=== PATIENT | female | born 1965 | race Caucasian/White ===

== ENCOUNTER 2016-12-26 01:37 | Emergency (ER) | payer BC ==
[~2016-12-26] VITALS: Ht 167.6 cm; Wt 140.6 kg
[~2016-12-26 01:37] MED LIST: ALBU1AER9 INH; AMPH1TAB58 PO; AMPH5CAP PO; CIPR-255 PO; CLR10 PO; FLM4 PO; FLUO20CA35 PO; FLUT0.15 NAE; HYDR-5688 PO; LOSA100T2 PO; METF1000 PO; POTATAB PO
[2016-12-26 01:41] VITALS: Ht 167.6 cm; Wt 140.6 kg
[2016-12-26] MEDS ORDERED: ONDANSETRON INJ 2 MG/ML 2 ML VIAL IV STA (02:20)
[2016-12-26] MEDS ORDERED: SODIUM CHLORIDE 0.9% 1000ML 1,000 ML IV STA (02:20)
[2016-12-26 02:34] LABS: BASO % 0.1 %; BASO ABS # 0.01 K/uL (0-0.2); COMPLETE YES; EOS % 2.2 %; HEMATOCRIT 42.5 % (37-47); IG% 0.1 %; LYMPH % 34.8 %; LYMPH ABS # 2.39 K/uL (1.2-3.4); MEAN CELL VOLUME 90.2 fL (80-100); MEAN CORPUSCULAR HEMOGLOBIN 29.1 pg (25-34); MEAN CORPUSCULAR HGB CONC 32.2 g/dl (32-36); MEAN PLATELET VOLUME 9.7 fL (7.4-10.4); MONO % 8.6 %; NEUT % 54.2 %; PLATELET COUNT 298 K/uL (130-400); RED BLOOD COUNT 4.71 M/uL (4.2-5.4); WHITE BLOOD COUNT 6.87 K/uL (4.8-10.8)
[2016-12-26 02:46] LABS: URINE APPEARANCE CLEAR (CLEAR); URINE BILIRUBIN NEG (NEG); URINE COLOR ORANGE; URINE NITRITE NEG (NEG); URINE SPECIFIC GRAVITY 1.019 (1.000-1.030); UROBILINOGEN NEG (NEG); ZZUR CULT IF INDIC CLEAN CATCH NO
[2016-12-26 02:53] LABS: ALT/SGPT 46 U/L (12-78); AST/SGOT 18 U/L (15-37); BLOOD UREA NITROGEN 19 mg/dl (7-18); BUN/CREATININE RATIO 21.6 (10-20); CALCIUM 9.5 mg/dl (8.5-10.1); CARBON DIOXIDE 30 mmol/L (21-32); CHLORIDE 103 mmol/L (98-107); CREATININE 0.88 mg/dl (0.60-1.20); GLUCOSE 97 mg/dl (70-99); POTASSIUM 3.9 mmol/L (3.5-5.1); SODIUM 137 mmol/L (136-145)
[2016-12-26 02:55] LABS: MANUAL MICROSCOPIC REQUIRED? NO; REVIEW REQ? NO
[2016-12-26 02:56] LABS: ALKALINE PHOSPHATASE 113 U/L (45-117)
[2016-12-26] MEDS ORDERED: LISD50CA4 PO (04:02)
[2016-12-26] MEDS ORDERED: VNTHFA/IN INH (04:02)
[2016-12-26] MEDS ORDERED: POTASOL PO (04:02)
[2016-12-26] MEDS ORDERED: HYZ/50125 PO (04:03)
[2016-12-26] MEDS ORDERED: ATOR10TA88 PO (04:04)
[2016-12-26] MEDS ORDERED: IBUP-1050 PO (04:05)
[2016-12-26] MEDS ORDERED: SYMIN160 INH (04:05)
[2016-12-26] MEDS ORDERED: IBUPROFEN 800 MG TAB PO STA (06:13)
[2016-12-26] MEDS ORDERED: OXYC-57 PO (06:20)
[2016-12-26] MEDS ORDERED: ONDA4TAB10 SL (06:22)
[2016-12-26] MEDS ORDERED: TAMS0.4C38 PO (06:22)
--- NOTE | 2016-12-26 06:23 | EMERGENCY ROOM VISIT NOTE ---
History First contact with patient: 02:12 Chief Complaint: KIDNEY STONE Stated Complaint: KIDNEY STONE History of Present Illness The patient is a 51 year old female who presents to the Emergency Room with complaints of left flank pain which started approximately 5 hours ago. The patient reports pain and left-sided upper back with radiation into the abdomen. She has noticed blood in the urine. She has a history of kidney stones and states this feels similar. She reports associated nausea, but no vomiting. She has seen [facility] urology in the past. She states she has typically needed lithotripsy to help pass her kidney stones. She rates her overall discomfort a 7/10. She denies any dysuria, urinary frequency, fevers/chills, chest pain, shortness of breath or changes in bowel movements. Review of Systems A complete 10 point review of systems was reviewed with the patient with pertinent positives and negatives as per history of present illness. All else were negative. Past Medical/Surgical History Medical Problems: (1) Cystinuria Social History Smoking Status: Never Smoker Alcohol Use: none Drug Use: none Marital Status: Housing Status: lives with family Occupation Status: employed Current/Historical Medications Scheduled Atorvastatin (Lipitor), 10 MG PO DAILY Budesonide/Formoterol Fumarate (Symbicort 160/4.5 Inhaler ), 2 PUFFS INH BID Fluoxetine (Prozac), 40 MG PO HS Fluticasone Propionate (Nasal) (Flonase Allergy Relief), 2 SPRAY FRANK QAM Hctz/Losartan (Hyzaar 12.5MG/50MG), 1 TAB PO HS Lisdexamfetamine Dimesylate (Vyvanse), 50 MG PO DAILY Loratadine (Claritin), 10 MG PO DAILY Ondasetron Odt (Zofran Odt), 4 MG SL Q6H Potassium Citrate-Citric Acid (Potassium Citrate/Citric), 5 ML PO TID Tamsulosin Hcl (Flomax), 0.4 MG PO DAILY Scheduled PRN Albuterol Hfa (Ventolin Hfa), 2 PUFFS INH Q6H PRN for SOB/Wheezing Ibuprofen (Advil), 400 MG PO Q4 PRN for Pain Oxycodone/Acetaminophen 5MG/325MG (Percocet 5MG/325MG), 1-2 TABS PO Q4H PRN for Pain Physical Exam Vital Signs Date Time Temp Pulse Resp B/P (MAP) Pulse Ox O2 Delivery O2 Flow Rate FiO2 12/26/16 06:37 36.4 64 16 133/67 96 12/26/16 06:22 64 16 133/67 96 Room Air 12/26/16 05:34 68 16 142/74 97 Room Air 12/26/16 03:26 76 16 125/58 97 Room Air 12/26/16 01:41 36.4 69 16 158/81 96 Room Air Physical Exam VITALS: Vitals are noted on the nurse's note and reviewed by myself. Vital signs stable. GENERAL: This is a 51-year-old female, in no acute distress, nondiaphoretic, well-developed well-nourished. HEART: Regular rate and rhythm without murmurs gallops or rubs. LUNGS: Clear to auscultation bilaterally without wheezes, rales or rhonchi. ABDOMEN: Positive bowel sounds x 4. Soft, mild tenderness in the left mid to lower abdomen. No guarding or rebound tenderness. MUSCULOSKELETAL: Left CVA tenderness. NEURO: Patient was alert and oriented to person place and time. Medical Decision & Procedures ER Provider Diagnostic Interpretation: US RENAL: Limited exam secondary to body habitus. No hydronephrosis or shadowing stones. No gross masses. Bladder is grossly normal with demonstration of bilateral ureteral jets. CT ABDOMEN & PELVIS: Bilateral adrenal adenomas, fat-containing. 6 mm nonobstructing calculus at the left UPJ with mild to moderate left hydronephrosis. No appendicitis, colitis, diverticulitis, bowel obstruction, free air or free fluid. No other acute disease. 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 No suspicious features. Radiologist: Bobo Byrd MD Laboratory Results 12/26/16 01:58 Red Blood Count 4.71, Mean Corpuscular Volume 90.2, Mean Corpuscular Hemoglobin 29.1, Mean Corpuscular Hemoglobin Concent 32.2, Mean Platelet Volume 9.7, Neutrophils (%) (Auto) 54.2, Lymphocytes (%) (Auto) 34.8, Monocytes (%) (Auto) 8.6, Eosinophils (%) (Auto) 2.2, Basophils (%) (Auto) 0.1, Neutrophils # (Auto) 3.72, Lymphocytes # (Auto) 2.39, Monocytes # (Auto) 0.59, Eosinophils # (Auto) 0.15, Basophils # (Auto) 0.01 12/26/16 01:58 Test 12/26/16 01:58 White Blood Count 6.87 K/uL (4.8-10.8) Red Blood Count 4.71 M/uL (4.2-5.4) Hemoglobin 13.7 g/dL (12.0-16.0) Hematocrit 42.5 % (37-47) Mean Corpuscular Volume 90.2 fL (80-100) Mean Corpuscular Hemoglobin 29.1 pg (25-34) Mean Corpuscular Hemoglobin Concent 32.2 g/dl (32-36) Platelet Count 298 K/uL (130-400) Mean Platelet Volume 9.7 fL (7.4-10.4) Neutrophils (%) (Auto) 54.2 % Lymphocytes (%) (Auto) 34.8 % Monocytes (%) (Auto) 8.6 % Eosinophils (%) (Auto) 2.2 % Basophils (%) (Auto) 0.1 % Neutrophils # (Auto) 3.72 K/uL (1.4-6.5) Lymphocytes # (Auto) 2.39 K/uL (1.2-3.4) Monocytes # (Auto) 0.59 K/uL (0.11-0.59) Eosinophils # (Auto) 0.15 K/uL (0-0.5) Basophils # (Auto) 0.01 K/uL (0-0.2) RDW Standard Deviation 47.1 fL (36.4-46.3) RDW Coefficient of Variation 14.1 % (11.5-14.5) Immature Granulocyte % (Auto) 0.1 % Immature Granulocyte # (Auto) 0.01 K/uL (0.00-0.02) Urine Color ORANGE Urine Appearance CLEAR (CLEAR) Urine pH 7.0 (4.5-7.5) Urine Specific [place] 1.019 (1.000-1.030) Urine Protein TRACE (NEG) Urine Glucose (UA) NEG (NEG) Urine Ketones NEG (NEG) Urine Occult Blood 3+ (NEG) Urine Nitrite NEG (NEG) Urine Bilirubin NEG (NEG) Urine Urobilinogen NEG (NEG) Urine Leukocyte Esterase TRACE (NEG) Urine WBC (Auto) 1-5 /hpf (0-5) Urine RBC (Auto) >30 /hpf (0-4) Urine Hyaline Casts (Auto) 0 /lpf (0-5) Urine Epithelial Cells (Auto) 10-20 /lpf (0-5) Urine Bacteria (Auto) NEG (NEG) Anion Gap 4.0 mmol/L (3-11) Est Creatinine Clear Calc Drug Dose 108.4 ml/min Estimated GFR () 87.6 Estimated GFR (Non- 75.5 BUN/Creatinine Ratio 21.6 (10-20) Calcium Level 9.5 mg/dl (8.5-10.1) Total Bilirubin 0.3 mg/dl (0.2-1) Direct Bilirubin < 0.1 mg/dl (0-0.2) Aspartate Amino Transf (AST/SGOT) 18 U/L (15-37) Alanine Aminotransferase (ALT/SGPT) 46 U/L (12-78) Alkaline Phosphatase 113 U/L (45-117) Total Protein 7.2 gm/dl (6.4-8.2) Albumin 3.6 gm/dl (3.4-5.0) Medications Administered Medications (Trade) Dose Ordered Sig/Susu Route Start Time Stop Time Status Last Admin Dose Admin Sodium Chloride 1,000 ml @ 999 mls/hr Q1H1M STAT IV 12/26/16 02:20 12/26/16 03:20 DC 12/26/16 02:32 999 MLS/HR Ondansetron HCl (Zofran Inj) 4 mg NOW STAT IV 12/26/16 02:20 12/26/16 02:22 DC 12/26/16 02:30 4 MG Ibuprofen (Motrin Tab) 800 mg NOW STAT PO 12/26/16 06:13 12/26/16 06:14 DC 12/26/16 06:24 800 MG ED Course The patient was evaluated as above. Labs were drawn and IV access was obtained. Patient was medicated with 4 mg Zofran and 1 L normal saline solution. Renal ultrasound was performed and read by statrad as above. CT scan was performed and read by statrad as above. Patient was reevaluated and findings were discussed. She was given ibuprofen for pain. Discharge instructions were reviewed with the patient. The patient verbalized understanding of my assessment and treatment plan and was discharged home in good condition. Medical Decision Differential diagnosis includes kidney stone, pyelonephritis, musculoskeletal pain, among others. The patient is a 51-year-old female with past medical history of multiple kidney stones who presents today complaining of left flank pain. Labs revealed no leukocytosis, anemia or concerning electrolyte abnormalities. Urinalysis did show 3+ blood. Ultrasound was initially performed but did not show any hydronephrosis or obstructing stone. I offered the patient CT versus treating her for a presumed kidney stone and she prefers to have a CT scan at this time, as she believes that urology will likely order one anyway. CT was performed. This was read by stat rad to show a nonobstructing UPJ stone, however on my evaluation of the CT the stone appears to be obstructing. The patient was offered admission for pain control versus discharge home for outpatient follow- up and prefers to be discharged. The patient will be treated with pain medication and follow-up with her urologist. She was encouraged to return here if she has worsening or new/concerning symptoms. Based on the patient's presentation and work up, I feel the patient is stable for outpatient treatment. The patient was educated to return to the emergency department for any worsening of their current condition or new/concerning symptoms. She will follow up with her urologist. [facility] Drug Monitoring Program Search Results: patient reviewed within database Medication Reconcilliation Current Medication List: was personally reviewed by me Blood Pressure Screening Patient's blood pressure: Elevated blood pressure Blood pressure disposition: Elevated BP felt to be situational Impression Primary Impression: Renal colic on left side Departure Information Dispostion Home / Self-Care Condition GOOD Prescriptions Tamsulosin Hcl (FLOMAX) 0.4 Mg Cap 0.4 MG PO DAILY for 7 Days, #7 CAP Prov: Stella Tellez PA-C 12/26/16 Ondasetron Odt (ZOFRAN ODT) 4 Mg Tab 4 MG SL Q6H for Nausea, #15 TAB Prov: Stella Tellez PA-C 12/26/16 Oxycodone/Acetaminophen 5MG/325MG (PERCOCET 5MG/325MG) Tab 1-2 TABS PO Q4H Y for Pain, #20 TAB For Initial Treatment Prov: Stella Tellez PA-C 12/26/16 Referrals Tj Rowe III, CRNP (PCP) Patient Instructions My [facility] Additional Instructions You have been treated in the Emergency Department today for a Kidney Stone ( Nephrolithiasis). You have been prescribed Percocet to be used for pain control. This is a narcotic medication. You cannot drive or consume alcohol while on this medicine. This medicine should only be used for pain that cannot be controlled with [id number] pain medicines. You have been prescribed and Zofran to be used for any nausea or vomiting. Take as prescribed. You have been prescribed Flomax 0.4 mg to be taken ONCE daily. This medicine has been prescribed as it can help relax the smooth muscles of the urinary tract increasing transit time of the kidney stone. For pain control, you can use the following [id number] medicines (if >12 yo): - Regular strength (325mg/tab) Tylenol (acetaminophen) 2 tabs every 4-6 hours as needed. Do not exceed 12 tablets in a 24 hour period. Avoid taking more than 4 grams (4000 mg) of Tylenol per day. This includes any other sources of acetaminophen you may take on a regular basis. - Regular strength (200 mg/tab) Advil (ibuprofen) 1-2 tabs every 4-6 hours as needed. Do not exceed a dose of 3200 mg per day. You have been provided a strainer and specimen collection cup. You should strain your urine to collect any passed stones. Your stones can be placed into the specimen cup and taken to your Urologist for further evaluation. Call your urologist's office when they open today to schedule a follow-up appointment. Return to the Emergency Department if your symptoms persist despite the treatment plan outlined above or if you develop the following symptoms: intractable pain, fever, chills, or large amounts of blood in your urine.
[2016-12-26 06:37] VITALS: BP 133/67; PULSE 64; TEMP 36.4; O2SAT 96
--- NOTE | 2016-12-26 07:36 | DIAGNOSTIC IMAGING REPORT ---
CT SCAN OF THE ABDOMEN AND PELVIS WITHOUT IV CONTRAST CLINICAL HISTORY: Left flank pain. COMPARISON STUDY: Abdominal CT dated 07/04/2015. TECHNIQUE: CT scan of the abdomen and pelvis is performed from the lung bases to the proximal femora. Images are reviewed in the axial, sagittal, and coronal planes. IV contrast was not administered for this examination. The examination is degraded by large body habitus, and by streak artifact from the body wall abutting the CT gantry. Automated dose control exposure was utilized. A dose lowering technique was utilized adhering to the principles of ALARA. CT DOSE: 2088.04 mGy.cm FINDINGS: Lung bases: The heart is normal in size and without pericardial effusion. The lung bases are clear noting minimal dependent hypoventilatory change. There is a small hiatal hernia. Liver: The unenhanced liver is enlarged, measuring 22 cm in length. The liver demonstrates diffusely diminished attenuation consistent with hepatic steatosis. There is no intrahepatic biliary ductal dilatation. Gallbladder: Unremarkable. Spleen: Normal in size and attenuation. Pancreas: The unenhanced pancreas is grossly unremarkable. Adrenal glands: A 4.5 cm left adrenal nodule and a 2.2 cm right adrenal nodule meet CT criteria for fat-containing adenomas. These are similar to previous. Kidneys: The unenhanced kidneys demonstrate cortical atrophy. There is a 6 mm obstructing calculus at the left ureteropelvic junction seen on axial image #198. This is located at the level of L2-L3 and causes mild to moderate left-sided hydronephrosis. There is mild associated left-sided perinephric stranding. No additional calculi are identified in either kidney and there is no right-sided hydronephrosis. There is no evidence of contour deforming renal mass lesion. A retroaortic left renal vein is incidentally noted. Abdominal vasculature: The abdominal aorta is normal in course and caliber noting mild atherosclerotic calcification. Bowel: The small bowel and colon are normal in course and caliber. There is moderate colonic fecal retention. The appendix is well-visualized and normal. Peritoneum: There is no intraperitoneal free air or abdominal ascites. There is a fat-containing umbilical hernia. Lymphadenopathy: None. Pelvic viscera: The bladder is normal as visualized. The uterus is surgically absent. No adnexal lesion is seen. A large lipoma is incidentally noted in the left thigh musculature. Skeletal structures: The skeletal structures appear osteopenic. Mild lumbosacral spondylosis and scoliosis are observed. 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 No lytic or blastic lesions are seen. IMPRESSION: 1. There is a 6 mm obstructing calculus at the left ureteropelvic junction. This causes mild to moderate left-sided hydronephrosis. 2. No additional calculi are seen in either kidney. 3. Hepatomegaly and hepatic steatosis. 4. Additional findings as above. Electronically signed by: Rory Dc M.D. 12/26/2016 7:35 AM Dictated Date/Time: 12/26/2016 7:29 AM
--- NOTE | 2016-12-26 07:50 | DIAGNOSTIC IMAGING REPORT ---
(RENAL)RETROPERITON COMP CLINICAL HISTORY: 51 years-old Female presenting with left flank pain, hx kidney stones. TECHNIQUE: Real-time grayscale and limited color Doppler ultrasound imaging of the kidneys and bladder was performed. COMPARISON: 11/15/2015. FINDINGS: Right kidney: Normal echogenicity. Right kidney measures 10.8 cm. No hydronephrosis. Left kidney: Grossly normal in appearance, not well seen due to bowel gas. No hydronephrosis. Bladder: No bladder wall thickening. Bilateral ureteral jets present. Other: None. IMPRESSION: 1. Grossly normal renal ultrasound without evidence of obstruction. Overall limited examination secondary to body habitus. Electronically signed by: Erik Benton M.D. 12/26/2016 7:48 AM Dictated Date/Time: 12/26/2016 7:46 AM
[2016-12-30] MEDS ORDERED: FLM4 PO (13:46)
[2016-12-30] MEDS ORDERED: OXYC-57 PO (13:46)
[2016-12-31] MEDS ORDERED: CEPH500C2 PO (15:16)
[2016-12-31] MEDS ORDERED: OXYC-57 PO (15:16)
[2016-12-31] MEDS ORDERED: PHEN-775 PO (15:16)
[2016-12-31] MEDS ORDERED: ONDA4TAB65 PO (15:17)
== END 2016-12-26 06:28 | disposition home or self-care (01) ==
LOC: C.EDB 01:38
DX: N23 Unspecified renal colic (principal); Z87.442 Personal history of urinary calculi

== ENCOUNTER → 2016-12-30 | Outpatient (CLI) | payer BC ==
[~2016-12-30] MED LIST changes: -ALBU1AER9 INH; -AMPH1TAB58 PO; -AMPH5CAP PO; +ATOR10TA88 PO; +CEPH500C2 PO; -CIPR-255 PO; -HYDR-5688 PO; +HYZ/50125 PO; +IBUP-1050 PO; +LISD50CA4 PO; -LOSA100T2 PO; -METF1000 PO; +ONDA4TAB10 SL; +ONDA4TAB65 PO; +OXYC-57 PO; +PHEN-775 PO; +POTASOL PO; -POTATAB PO; +SYMIN160 INH; +TAMS0.4C38 PO; +VNTHFA/IN INH
== END | disposition home or self-care (01) ==
LOC: C.CPL 12:06
PROVIDERS: ATTEND Urology
DX: N20.0 Calculus of kidney (principal)

== ENCOUNTER → 2016-12-30 | Outpatient (CLI) | payer BC ==
--- NOTE | 2016-12-30 09:14 | DIAGNOSTIC IMAGING REPORT ---
KUB CLINICAL HISTORY: N20.0 [id number] COMPARISON STUDY: CT scan dated 12/26/2016, IVP dated June 26, 2015 FINDINGS: The renal shadows are partially obscured by overlying bowel gas and fecal material. Radiopacities projected over the right kidney, are felt to represent overlying enteric contents, as no right renal calculi were visualized on the CT scan performed December 26. There is mild fecal retention. There is no pathologic bowel dilatation. The left ureteropelvic junction calculus described on the recent CT scan is not visualized with certainty on conventional radiographic imaging. IMPRESSION: The 6 mm left UPJ calculus described on the recent CT scan, is not visualized with certainty on conventional radiographic imaging Electronically signed by: Sacha Aguayo M.D. 12/30/2016 9:13 AM Dictated Date/Time: 12/30/2016 9:11 AM
== END | disposition home or self-care (01) ==
LOC: C.RAD 08:45
PROVIDERS: ATTEND Nurse Practitioner Adult Health
DX: N20.0 Calculus of kidney (principal)

== ENCOUNTER 2016-12-31 12:46 | Day surgery (SDC) | payer BC ==
[2016-12-30 13:46] VITALS: BMI 49.0
[~2016-12-31] VITALS: Ht 167.6 cm; Wt 138.6 kg
[~2016-12-31 12:46] MED LIST changes: -ATOR10TA88 PO; +CEFAZOLIN 3000 MG/65 ML D5W IV SCH; -CEPH500C2 PO; +LACTATED RINGER'S 1000ML 1,000 ML IV SCH; -ONDA4TAB10 SL; -ONDA4TAB65 PO; -PHEN-775 PO; -TAMS0.4C38 PO
[2016-12-31] MEDS ORDERED: FENTANYL CITRATE INJ 50 MCG/1 ML 2 ML VIAL ONE ×2 (12:49→15:19)
[2016-12-31] MEDS ORDERED: ONDANSETRON INJ 2 MG/ML 2 ML VIAL ONE ×2 (12:49→15:19)
[2016-12-31] MEDS ORDERED: MIDAZOLAM HCL 1 MG/ML 2ML VIAL ONE (12:49)
[2016-12-31] MEDS ORDERED: DEXAMETHASONE SOD INJ 4 MG/ML VIAL ONE (12:49)
[2016-12-31] MEDS ORDERED: LIDOCAINE HCL 2% 2 ML VIAL (20MG/ML) ONE (12:49)
[2016-12-31] MEDS ORDERED: PROPOFOL IV EMULSION 10 MG/ML 20 ML VIAL IV ONE ×2 (12:49→14:39)
[2016-12-31 13:20] VITALS: BP 142/71; PULSE 64; TEMP 36.6; O2SAT 98; Ht 167.6 cm; Wt 138.6 kg
--- NOTE | 2016-12-31 13:39 | History and Physical ---
History & Physical Date Dec 31, 2016. Chief Complaint Left Ureteral Stone History of Present Illness The patient is a 51 year old female with complaints of Left obstructing Renal Pelvis stone. Long history of cysteine stones. 2 weeks of recurrent left flank pain radidating to the groin. Risks and benefits discussed at length. Has had multiple procedures in past. Pain better controlled today. Past Medical/Surgical History Medical Problems: (1) Cystinuria Past Surgical History: Previous ESWL Previous URS bilaterally Social: Nonsmoker Additional History Hepatic Disease: No Kidney Disease: Yes Hypertension: Yes Allergies Coded Allergies: No Known Allergies (Verified , 12/31/16) Home Medications Scheduled Budesonide/Formoterol Fumarate (Symbicort 160/4.5 Inhaler ), 2 PUFFS INH BID Fluoxetine (Prozac), 40 MG PO HS Fluticasone Propionate (Nasal) (Flonase Allergy Relief), 2 SPRAY FRANK QAM Hctz/Losartan (Hyzaar 12.5MG/50MG), 1 TAB PO HS Lisdexamfetamine Dimesylate (Vyvanse), 50 MG PO QAM Loratadine (Claritin), 10 MG PO HS Potassium Citrate-Citric Acid (Potassium Citrate/Citric), 5 ML PO TID Tamsulosin HCl (Tamsulosin HCl), 0.4 MG PO NOON Scheduled PRN Albuterol Hfa (Ventolin Hfa), 2 PUFFS INH Q6H PRN for SOB/Wheezing Ibuprofen (Advil), 400 MG PO Q4 PRN for Pain Oxycodone/Acetaminophen 5MG/325MG (Percocet 5MG/325MG), 1-2 TABLETS PO Q4H PRN for Pain Physical Examination Skin: warm/dry, no rash Eyes: normal inspection, EOMI, sclerae normal ENT: normal ENT inspection, pharynx normal Head: normocephalic, atraumatic Neck: supple, no adenopathy, trachea midline Respiratory/Chest: normal breath sounds, no respiratory distress Cardiovascular: regular rate, rhythm, no edema Abdomen / GI: normal bowel sounds, non tender, + pertinent finding (Obese) Back: normal inspection, + pertinent finding (Left Flank tenderness) Neurologic/Psych: no motor/sensory deficits, alert, normal reflexes, oriented x 3 Diagnosis Left Obstructing Kidney Stone at UPJ Plan of Treatment Plan to OR for Cystoscopy with left ureteroscopy, possible dilation, possible stent, possible stone basket extraction, possible laser lithotripsy. Patient NPO. Ancef 3 gm IV order for Preoperative Abx. Patient's history was throughly reviewed. H&P up to date. Discussed at length with patient. Consent signed.
[2016-12-31] MEDS ORDERED: CONRAY 30% 150ML BOTTLE ONE (13:47)
[2016-12-31] MEDS ORDERED: LARYING-O-JET KIT (LTA) ONE ×2 (14:24)
[2016-12-31] MEDS ORDERED: ROCURONIUM BROMIDE 10 MG/ML 5 ML VIAL ONE (14:24)
[2016-12-31] MEDS ORDERED: NEOSTIGMINE METHYLSULFATE 5 MG/5 ML SYR ONE ×2 (14:24→14:39)
[2016-12-31] MEDS ORDERED: GLYCOPYRROLATE INJ 0.2 MG/ML VIAL ONE (14:24)
[2016-12-31] MEDS ORDERED: KETOROLAC TROMETHAMINE 30 MG/ML VIAL ONE (14:39)
--- NOTE | 2016-12-31 14:59 | [facility] Post Operative Brief Note ---
Immediate Operative Summary Operative Date Dec 31, 2016. Pre-Operative Diagnosis Left obstruction kidney stone Post-Operative Diagnosis Left obstruction kidney stone Procedure(s) Performed Left Cystoscopy, Ureteroscopy, Laser Lithotripsy; Stent; Retrograde Surgeon Chinmay Pit Steward Surgeon(s) none Estimated Blood Loss 0cc Findings Left UPJ stone, obliterated to dust and small fragments Old clot/debris in lower pole renal pelvis Fluids (cc crystalloids) See ANES Report Specimens None per surgeon Drains 6x26 Double J Stent on Left Anesthesia GET Complication(s) None Disposition Recovery Room / PACU (Patient stable to PACU)
--- NOTE | 2016-12-31 15:06 | [facility] Operative Report ---
Operative Report Operative Date Dec 31, 2016. Pre-Operative Diagnosis Left obstruction kidney stone Post-Operative Diagnosis Left obstruction kidney stone Procedure(s) Performed Left Cystoscopy, Ureteroscopy, Laser Lithotripsy; Stent; Retrograde Surgeon Chinmay Education Faculty Member Surgeon(s) none Estimated Blood Loss 0cc Findings LEft 6 mm UPJ Stone Fluids See ANES Report Specimens None per surgeon Drains 6x26 Double J Stent on Left Anesthesia GET Disposition Recovery Room / PACU (Patient stable to PACU) Indications Left Obstructing Stone at UPJ. Long conversation of options with risks and benefits. Patient agreeable and consented. Description of Procedure Patient was consented and brought back to the operative suite. Patient was placed under GET and placed in the dorsal lithotomy position. A time out was completed. With timeout completed a 30degree cystoscope was placed into the bladder and the bladder investigated. The left UO was identified and a 5 tunisian catheter was placed to insert a sensor wire. With the wire in place, the scope was removed and an access shealth was placed. A second safety wire was placed and the sheath replaced. The digital ureteroscope was placed and laser fiber was used to break the 6 mm stone at the UPJ to dust and small fragments. The entire renal pelvis was investigated and all stone fragments were adequately treated. The scope was then removed with the safety wire in place. Contrast was placed into the collecting system. The scope was changed to the cystoscope and the wire backloaded. With the wire, under fluroscopy and direct visualization, the 6 x 26 Double J stent was placed on the left. The stent in place the wire was removed, the bladder emptied, and the scope removed. The patient was cleaned and aroused from Anesthesia and transferred to the PACU in stable condition ahving tolerated the procedure well. The patient will be monitored and discharged with plans to remove the stent in 1 week. I attest to the content of the Intraoperative Record and any orders documented therein. Any exceptions are noted below.
--- NOTE | 2016-12-31 15:07 | DIAGNOSTIC IMAGING REPORT ---
KUB CLINICAL HISTORY: Left cysto, ureteroscopy, laser lithotripsy, and stent stent placement TECHNIQUE: Image intensifier COMPARISON STUDY: None FINDINGS: Image intensifier utilized for left ureteral stent placement IMPRESSION: Left ureteral stent placement The above report was generated using voice recognition software. It may contain grammatical, syntax or spelling errors. Electronically signed by: Issac Montana M.D. 12/31/2016 3:05 PM Dictated Date/Time: 12/31/2016 3:05 PM
[2016-12-31] MEDS ORDERED: CEPH500C2 PO (15:16)
[2016-12-31] MEDS ORDERED: PHEN-775 PO (15:16)
[2016-12-31] MEDS ORDERED: OXYC-57 PO (15:16)
[2016-12-31] MEDS ORDERED: ONDA4TAB65 PO (15:17)
--- NOTE | 2016-12-31 15:21 | Discharge Instructions ---
Discharge Instructions Date of Service Dec 31, 2016. Visit Reason for Visit: Stones Discharge Discharge Diagnosis / Problem: Left Renal Stone Discharge Goals Goal(s): Decrease discomfort Activity Recommendations Activity Limitations: resume your previous activity Exercise/Sports Limitations: as tolerated Shower/Bathe: no limitations Driving or Machine Use: When not taking opiate pain medication Anesthesia . Post Anesthesia Instructions: If you have had General Anesthesia or IV Sedation: * Do not drive today. * Resume driving when surgeon permits. * Do not make important decisions or sign legal documents today. * Call surgeon for: 1. Temperature elevations greater than 101 degrees F. 2. Uncontrollable pain. 3. Excessive bleeding. 4. Persistent nausea and vomiting. 5. Medication intolerance (nausea, vomiting or rash). * For nausea and vomiting use only clear liquids such as: tea, soda, bouillon until nausea subsides, then gradually increase diet as tolerated. * If you have any concerns or questions, call your surgeon's office. If physician is unavailable and it is an emergency, call 911 or go to the nearest emergency room. . Instructions / Follow-Up Instructions / Follow-Up Call office for appt. Need stent removed in office in 1-2 weeks Diet Recommendations Recommended Home Diet: resume previous diet Procedures Procedures Performed: Left Cystoscopy, Ureteroscopy, Laser Lithotripsy; Stent; Retrograde Pending Studies Studies pending at discharge: no Medical Emergencies . Who to Call and When: Medical Emergencies: If at any time you feel your situation is an emergency, please call 911 immediately. . Non-Emergent Contact Non-Emergency issues call your: Urologist Call Non-Emergent contact if: you have a fever, temperature is above 100.5, temperature is above 101.5, your pain is not controlled, you have any medication questions Any issues or concerns . . "Provider Documentation" section prepared by Andriy Moy. . [place] Drug Monitoring Program Search Results: patient reviewed within database, no issues identified
[2016-12-31] MEDS ORDERED: ONDANSETRON INJ 2 MG/ML 2 ML VIAL IV PRN ×2 (15:30)
[2016-12-31] MEDS ORDERED: FENTANYL CITRATE INJ 50 MCG/1 ML 2 ML VIAL IV PRN ×2 (15:30)
[2016-12-31] MEDS ORDERED: ATROPINE SULFATE 0.1 MG/ML 5ML SYR IV PRN ×2 (15:30)
[2016-12-31 15:46] VITALS: BP 144/67; PULSE 54; TEMP 36.3; O2SAT 99
--- NOTE | 2016-12-31 16:10 | Anesthesiology Progress Note ---
Anesthesia Post Op Note Date & Time Dec 31, 2016 at 16:10 Vital Signs Pain Intensity: 3 Vital Signs Past 12 Hours Date Time Temp Pulse Resp B/P (MAP) Pulse Ox O2 Delivery O2 Flow Rate FiO2 12/31/16 15:46 36.3 54 18 144/67 99 Room Air 12/31/16 15:40 36.2 49 16 151/88 97 Room Air 12/31/16 15:30 49 16 153/87 100 Room Air 12/31/16 15:20 66 16 128/77 100 Oxymask 10 12/31/16 15:10 66 14 143/93 100 Oxymask 10 12/31/16 15:02 36.4 70 14 139/84 99 Oxymask 10 12/31/16 13:20 36.6 64 18 142/71 (94) 98 Room Air Notes Mental Status: alert / awake / arousable, participated in evaluation Pt Amnestic to Procedure: Yes Nausea / Vomiting: adequately controlled Pain: adequately controlled Airway Patency, RR, SpO2: stable & adequate BP & HR: stable & adequate Hydration State: stable & adequate Anesthetic Complications: no major complications apparent
[2016-12-31 16:15] VITALS: BP 125/69; PULSE 56; O2SAT 99
[2016-12-31 16:45] VITALS: BP 136/68; PULSE 54; TEMP 36.3; O2SAT 97
== END 2016-12-31 16:45 | disposition home or self-care (01) ==
LOC: C.ACU 12:46
PROVIDERS: ATTEND Urology
DX: N20.0 Calculus of kidney (principal); Z79.899 Other long term (current) drug therapy

== ENCOUNTER → 2017-01-13 | Outpatient (CLI) | payer BC ==
[~2017-01-13] MED LIST changes: -CEFAZOLIN 3000 MG/65 ML D5W IV SCH; -IBUP-1050 PO; -LACTATED RINGER'S 1000ML 1,000 ML IV SCH; +ONDA4TAB65 PO
--- NOTE | 2017-01-13 11:12 | DIAGNOSTIC IMAGING REPORT ---
KUB CLINICAL HISTORY: 51 years-old Female presenting with nephrolithiasis. TECHNIQUE: Single supine view of the abdomen was obtained. COMPARISON: 12/30/2016, 12/31/2016. FINDINGS: Interval placement of a left ureteral stent. Previously noted 6 mm calculus at the left ureteropelvic junction seen on prior CT from 12/26/2016 is again not radiographically apparent. Prominent phleboliths in the right hemipelvis. Moderate stool burden throughout the colon degrades evaluation of the kidneys. No gross pneumoperitoneum. No bowel obstruction. Slight scoliotic curvature of the lumbar spine with lower lumbar degenerative changes. IMPRESSION: 1. Left ureteral stent. Nonvisualization of the left ureteral calculus possibly indicates passage. Electronically signed by: Erik Benton M.D. 01/13/2017 11:11 AM Dictated Date/Time: 01/13/2017 11:07 AM
== END | disposition home or self-care (01) ==
LOC: C.RAD 10:15
PROVIDERS: ATTEND Urology
DX: N20.0 Calculus of kidney (principal)

== ENCOUNTER → 2017-02-19 | Outpatient (CLI) | payer BC ==
--- NOTE | 2017-02-19 10:38 | DIAGNOSTIC IMAGING REPORT ---
RENAL ULTRASOUND HISTORY: N20.0 Nephrolithiasis [id number] COMPARISON: KUB 01/13/2017. FINDINGS: Right kidney: 10.0 cm. No hydronephrosis. Normal corticomedullary differentiation and cortical thickness. Left kidney: 9.5 cm. No hydronephrosis. Normal corticomedullary differentiation and cortical thickness. Bladder: No bladder wall thickening. The bilateral ureteral jets were identified. IMPRESSION: No renal stones. No hydronephrosis. Electronically signed by: Raoul Dong M.D. 02/19/2017 10:37 AM Dictated Date/Time: 02/19/2017 10:36 AM
== END | disposition home or self-care (01) ==
LOC: C.ULTR 09:51
PROVIDERS: ATTEND Urology
DX: N20.0 Calculus of kidney (principal)

== ENCOUNTER → 2017-03-08 | Outpatient (CLI) | payer BC ==
[2017-03-08 09:22] LABS: ALT/SGPT 39 U/L (12-78); BLOOD UREA NITROGEN 23 mg/dl (7-18); CALCIUM 9.2 mg/dl (8.5-10.1); CARBON DIOXIDE 26 mmol/L (21-32); CHLORIDE 107 mmol/L (98-107); CREATININE 0.81 mg/dl (0.60-1.20); GLUCOSE 98 mg/dl (70-99); MAGNESIUM 2.4 mg/dl (1.8-2.4); SODIUM 139 mmol/L (136-145)
[2017-03-08 09:25] LABS: ALB/GLOB RATIO 0.9 (0.9-2); ALKALINE PHOSPHATASE 126 U/L (45-117); AST/SGOT 24 U/L (15-37)
== END | disposition home or self-care (01) ==
LOC: C.LAB 08:01
PROVIDERS: ATTEND Urology
DX: R25.2 Cramp and spasm (principal); E72.09 Other disorders of amino-acid transport

== ENCOUNTER → 2017-07-01 | Outpatient (CLI) | payer BC ==
--- NOTE | 2017-07-01 17:26 | DIAGNOSTIC IMAGING REPORT ---
KUB HISTORY: Follow-up study in a patient with nephrolithiasis. NEPHROLITHIASIS COMPARISON: Renal ultrasound 02/19/2017, KUB 01/13/2017, CT 12/26/2016. FINDINGS: The bowel gas pattern is non-obstructive. Moderate stool volume of the right hemicolon. There is no organomegaly. Calcifications of the pelvis suggest phleboliths. Renal shadows are obscured by bowel gas and colonic stool. No definite nephrolithiasis or ureteral calculi identified. No pneumoperitoneum or pneumatosis. No fracture. Degenerative changes are seen within the hips and spine. IMPRESSION: No renal or ureteral stones identified. Electronically signed by: Carlos Medina M.D. 07/01/2017 5:25 PM Dictated Date/Time: 07/01/2017 5:23 PM
== END | disposition home or self-care (01) ==
LOC: C.RAD 16:51
PROVIDERS: ATTEND Nurse Practitioner Adult Health
DX: N20.0 Calculus of kidney (principal)

== ENCOUNTER → 2017-07-04 | Outpatient (CLI) | payer BC ==
[~2017-07-04] MED LIST changes: +FENTANYL CITRATE INJ 50 MCG/1 ML 2 ML VIAL ONE; +LIDOCAINE HCL 2% 2 ML VIAL (20MG/ML) ONE; +ONDANSETRON INJ 2 MG/ML 2 ML VIAL ONE; +OPTIRAY 320 IV PRN; +PROPOFOL IV EMULSION 10 MG/ML 20 ML VIAL IV ONE
--- NOTE | 2017-07-04 08:21 | DIAGNOSTIC IMAGING REPORT ---
CT ABD/PELVIS COMBO CLINICAL HISTORY: R31.9 bilateral flank pain and hematuria, ref#[id number] COMPARISON STUDY: 12/26/2016 TECHNIQUE: Unenhanced images were obtained to the abdomen and pelvis. The patient was injected with 50 cc of Optiray 320. Findings 5 minute delay, the patient was reimaged in a dynamic helical fashion during the additional administration of 70 cc of Optiray 320. A dose lowering technique was utilized adhering to the principles of ALARA. CT DOSE: 2092.68 mGycm FINDINGS: Lower chest: The heart is normal in size and configuration, without pericardial effusion. The lung bases and pleural spaces are clear. Liver: The contrast-enhanced liver is normal in size, contour, and attenuation. There is no intrahepatic biliary ductal dilatation. The hepatic veins and portal veins are patent. Gallbladder: Unremarkable. Spleen: Normal in size and attenuation. Pancreas: Unremarkable. Adrenal glands: There are bilateral adrenal adenomas measuring 42 mm on the left and 20 mm the right. Kidneys: No renal, ureteral, or bladder calculi are visualized. There are no solid renal masses. No uroepithelial lesions are visualized. There is minimal fullness of the left renal collecting system. Bowel: There are no transition zones indicate bowel obstruction. There is no evidence of acute diverticulitis. There is no evidence of acute appendicitis. Peritoneum: There is no intraperitoneal free air or abdominal ascites. Vasculature: The abdominal aorta is normal in course and caliber. Adenopathy: None. Pelvic viscera: The uterus appears surgically absent. 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 IMPRESSION: 1. Minimal fullness of the left renal collecting system. No calculi identified. 2. No solid renal masses identified. 3. No evidence of bowel obstruction. No evidence of free air. 4. Bilateral adrenal adenomas Electronically signed by: Sacha Aguayo M.D. 07/04/2017 8:19 AM Dictated Date/Time: 07/04/2017 8:11 AM
[2017-07-04 09:37] LABS: BASO % 0.2 %; BASO ABS # 0.02 K/uL (0-0.2); EOS % 3.1 %; EOS ABS # 0.25 K/uL (0-0.5); HEMATOCRIT 38.6 % (37-47); HEMOGLOBIN 12.7 g/dL (12.0-16.0); IG# 0.01 K/uL (0.00-0.02); LYMPH % 25.8 %; LYMPH ABS # 2.11 K/uL (1.2-3.4); MEAN CELL VOLUME 90.4 fL (80-100); MEAN CORPUSCULAR HEMOGLOBIN 29.7 pg (25-34); MEAN CORPUSCULAR HGB CONC 32.9 g/dl (32-36); MEAN PLATELET VOLUME 10.1 fL (7.4-10.4); MONO ABS # 0.74 K/uL (0.11-0.59); NEUT % 61.8 %; NEUT ABS # 5.06 K/uL (1.4-6.5); PLATELET COUNT 253 K/uL (130-400); RED CELL DISTRIBUTION WIDTH CV 13.9 % (11.5-14.5); RED CELL DISTRIBUTION WIDTH SD 45.6 fL (36.4-46.3); WHITE BLOOD COUNT 8.19 K/uL (4.8-10.8)
[2017-07-04 09:48] LABS: HEMOGLOBIN A1C 5.6 % (4.5-5.6)
[2017-07-04 09:53] LABS: ALBUMIN 3.5 gm/dl (3.4-5.0); ALT/SGPT 52 U/L (12-78); AST/SGOT 29 U/L (15-37); BLOOD UREA NITROGEN 19 mg/dl (7-18); CALCIUM 9.1 mg/dl (8.5-10.1); CARBON DIOXIDE 30 mmol/L (21-32); GLUCOSE 109 mg/dl (70-99); POTASSIUM 3.6 mmol/L (3.5-5.1); SODIUM 138 mmol/L (136-145)
[2017-07-04 10:01] LABS: ALKALINE PHOSPHATASE 111 U/L (45-117); CHOLESTEROL 200 mg/dl (0-200); LDL CHOLESTEROL CALCULATED 96 mg/dl; TOTAL PROTEIN 7.4 gm/dl (6.4-8.2)
[2017-07-04 10:12] LABS: CREATININE RANDOM URINE 13.8 mg/dl
== END | disposition home or self-care (01) ==
LOC: C.CTS 07:36
PROVIDERS: ATTEND Nurse Practitioner Adult Health
DX: R31.9 Hematuria, unspecified (principal); E88.81 Metabolic syndrome and other insulin resistance; E78.00 Pure hypercholesterolemia, unspecified; I10 Essential (primary) hypertension; J45.909 Unspecified asthma, uncomplicated; E66.9 Obesity, unspecified; D35.01 Benign neoplasm of right adrenal gland; D35.02 Benign neoplasm of left adrenal gland

== ENCOUNTER → 2017-07-09 | Outpatient (CLI) | payer BC ==
[~2017-07-09] MED LIST changes: -FENTANYL CITRATE INJ 50 MCG/1 ML 2 ML VIAL ONE; -LIDOCAINE HCL 2% 2 ML VIAL (20MG/ML) ONE; -ONDANSETRON INJ 2 MG/ML 2 ML VIAL ONE; -OPTIRAY 320 IV PRN; -PROPOFOL IV EMULSION 10 MG/ML 20 ML VIAL IV ONE
--- NOTE | 2017-07-09 16:23 | DIAGNOSTIC IMAGING REPORT ---
CHEST 2 VIEWS ROUTINE CLINICAL HISTORY: R60.9 [id number] Shortness of breath dyspnea COMPARISON STUDY: 05/22/2015 FINDINGS: Slight interstitial and peribronchial prominence throughout both hemithoraces. Heart is top limits normal. Diaphragms are smooth. Lungs show no focal infiltrate. IMPRESSION: Diffuse interstitial prominence suggesting lower airway inflammatory process and/or nonspecific interstitial pneumonitis. No focal infiltrate. The above report was generated using voice recognition software. It may contain grammatical, syntax or spelling errors. Electronically signed by: Issac Montana M.D. 07/09/2017 4:22 PM Dictated Date/Time: 07/09/2017 4:20 PM
[2017-07-09 17:20] LABS: BASO % 0.3 %; BASO ABS # 0.02 K/uL (0-0.2); HEMATOCRIT 38.7 % (37-47); HEMOGLOBIN 12.6 g/dL (12.0-16.0); IG# 0.01 K/uL (0.00-0.02); LYMPH % 27.6 %; LYMPH ABS # 1.87 K/uL (1.2-3.4); MEAN CELL VOLUME 89.8 fL (80-100); MEAN CORPUSCULAR HEMOGLOBIN 29.2 pg (25-34); MEAN CORPUSCULAR HGB CONC 32.6 g/dl (32-36); MEAN PLATELET VOLUME 9.3 fL (7.4-10.4); MONO % 6.5 %; MONO ABS # 0.44 K/uL (0.11-0.59); NEUT % 62.5 %; NEUT ABS # 4.23 K/uL (1.4-6.5); PLATELET COUNT 321 K/uL (130-400); RED CELL DISTRIBUTION WIDTH CV 13.8 % (11.5-14.5); RED CELL DISTRIBUTION WIDTH SD 45.7 fL (36.4-46.3); WHITE BLOOD COUNT 6.77 K/uL (4.8-10.8)
[2017-07-09 17:49] LABS: ALBUMIN 3.5 gm/dl (3.4-5.0); ALT/SGPT 49 U/L (12-78); AST/SGOT 27 U/L (15-37); BLOOD UREA NITROGEN 19 mg/dl (7-18); CARBON DIOXIDE 28 mmol/L (21-32); CREATININE 1.07 mg/dl (0.60-1.20); GLUCOSE 86 mg/dl (70-99); POTASSIUM 3.8 mmol/L (3.5-5.1); SODIUM 138 mmol/L (136-145)
[2017-07-09 18:00] LABS: ALKALINE PHOSPHATASE 118 U/L (45-117); TOTAL PROTEIN 7.5 gm/dl (6.4-8.2)
== END | disposition home or self-care (01) ==
LOC: C.RAD1850 15:54
PROVIDERS: ATTEND Nurse Practitioner Family
DX: R06.02 Shortness of breath (principal); R60.9 Edema, unspecified

== ENCOUNTER → 2017-07-24 | Outpatient (CLI) | payer OTHER, BC ==
--- NOTE | 2017-07-24 15:50 | DIAGNOSTIC IMAGING REPORT ---
L KNEE 1 OR 2 VIEWS ROUTINE CLINICAL HISTORY: Left knee pain. Recent fall. COMPARISON: Knee radiograph every July 22, 2011. FINDINGS: Alignment of the left knee is anatomic. A few ossific/calcific densities proximal to the proximal shaft of the left tibia are unchanged since exam of July 22, 2011 and are therefore of doubtful significance. There is a equivocal small left knee joint effusion. There is mild to moderate osteoarthritis of the left knee with tricompartmental osteophytosis. IMPRESSION: 1. No acute fracture. 2. Mild to moderate osteoarthritis of the left knee, most pronounced within the patellofemoral compartment. 3. Possible small left knee joint effusion. Electronically signed by: Craig Ramirez M.D. 07/24/2017 3:49 PM Dictated Date/Time: 07/24/2017 3:47 PM
[2017-07-24 17:01] LABS: URIC ACID 5.6 mg/dl (2.6-7.2)
== END | disposition home or self-care (01) ==
LOC: C.LAB1850 15:11
PROVIDERS: ATTEND Nurse Practitioner Family
DX: M17.12 Unilateral primary osteoarthritis, left knee (principal)

== ENCOUNTER → 2017-07-28 | Outpatient (CLI) | payer OTHER, BC ==
--- NOTE | 2017-07-28 08:53 | DIAGNOSTIC IMAGING REPORT ---
L KNEE 3 VIEWS CLINICAL HISTORY: 51 years-old Female presenting with LEFT KNEE PAIN S/P INJURY. TECHNIQUE: Bilateral frontal view of the knees in standing position as well as sunrise, and tunnel views of the knees were obtained. COMPARISON: 07/24/2017. FINDINGS: The joint spaces are symmetric. Right knee: Tricompartmental osteophytosis. Lateral subluxation of the patella. No subchondral sclerosis or cystic change evident. No acute fracture or malalignment. Left knee: Tricompartmental osteophytosis. Lateral subluxation of the patella. No subchondral sclerosis or cystic change evident. No acute fracture or malalignment. IMPRESSION: Tricompartmental degenerative change in the bilateral knees with lateral subluxation of the patellae bilaterally. Electronically signed by: Erik Benton M.D. 07/28/2017 8:52 AM Dictated Date/Time: 07/28/2017 8:50 AM
== END | disposition home or self-care (01) ==
LOC: C.RDSM 08:38
PROVIDERS: ATTEND Physician Assistant
DX: M17.0 Bilateral primary osteoarthritis of knee (principal); S83.011A Lateral subluxation of right patella, initial encounter; S83.012A Lateral subluxation of left patella, initial encounter; X58.XXXA Exposure to other specified factors, initial encounter

== ENCOUNTER → 2017-07-29 | Outpatient (CLI) | payer OTHER, BC ==
--- NOTE | 2017-07-29 15:06 | DIAGNOSTIC IMAGING REPORT ---
MRI OF THE LEFT KNEE CLINICAL HISTORY: Left knee injury. COMPARISON STUDY: Radiographs of left knee dated 07/28/2017. TECHNIQUE: MRI of the left knee was performed utilizing proton density, T1, and T2-weighted sequences in the axial, sagittal, coronal planes. IV contrast was not administered for this examination. FINDINGS: Menisci: The lateral meniscus is intact. The medial meniscus appears truncated an increased signal within the meniscus is consistent with tearing. A posterior fat fragment is questioned, best seen on sagittal image #5. Ligaments: The anterior and posterior cruciate ligaments are intact. There is evidence of grade 1 injury of the medial collateral ligament. The fibers appear intact. The lateral collateral ligament complex is within normal limits. Extensor mechanism: The extensor mechanism is intact. Hoffa's fat pad is normal in appearance. Articular cartilage and bone: There is lateral subluxation of the patella. There is full-thickness cartilage loss seen along the medial femoral trochlea. Nearly full-thickness cartilage loss is also seen along the inferior aspect of the lateral femoral trochlea with associated subchondral marrow edema. There is full-thickness cartilage loss along the lateral patellar facet superiorly with associated subchondral marrow edema. There is a 7 mm focus of full-thickness cartilage loss with subchondral cyst formation and marrow edema seen on the anterior aspect of the lateral femoral condyle. Less than 50% thinning is seen along the weightbearing surface in the medial and lateral compartments. No fracture is identified. There are large marginal osteophytes and patellar enthesophytes. Joint effusion: There is a moderate to large joint effusion. Soft tissues: Anterior subcutaneous soft tissue edema is noted. The musculature surrounding the knee joint is normal in bulk and signal intensity. IMPRESSION: 1. The medial meniscus appears truncated with degenerative tearing. A posteriorly flipped fragment is suspected. 2. There is evidence of grade 1 injury of the medial collateral alignment. 3. The cruciate ligaments, the lateral meniscus, and the lateral collateral ligament complex are preserved. 4. Moderate to advanced arthritic change is seen in the lateral and patellofemoral compartments as above. 5. Moderate to large joint effusion. Electronically signed by: Rory Dc M.D. 07/29/2017 3:05 PM Dictated Date/Time: 07/29/2017 2:54 PM
== END | disposition home or self-care (01) ==
LOC: C.MRIBC 13:56
PROVIDERS: ATTEND Physical Medicine & Rehabilitation Sports Medicine
DX: M17.12 Unilateral primary osteoarthritis, left knee (principal); S89.92XA Unspecified injury of left lower leg, initial encounter; X58.XXXA Exposure to other specified factors, initial encounter; M25.462 Effusion, left knee

== ENCOUNTER → 2017-08-26 | Outpatient (CLI) | payer OTHER, BC ==
--- NOTE | 2017-08-26 09:20 | DIAGNOSTIC IMAGING REPORT ---
EXAMINATION: RENAL ULTRASOUND CLINICAL HISTORY: E72.09 Cystine [id number] COMPARISON STUDY: CT scan performed July 04, 2017 FINDINGS: The right kidney measures 11.5 cm. The left kidney measures 10.9 cm. There is no evidence of hydronephrosis. There are no renal masses. There is enlargement of the right adrenal gland consistent with the patient's known adenoma. No bladder abnormalities are visualized. Bilateral ureteral jets were visualized. IMPRESSION : 1. Enlarged right adrenal gland, consistent with the patient's known adenoma 2. No renal masses identified. No evidence of hydronephrosis. Electronically signed by: Sacha Aguayo M.D. 08/26/2017 9:19 AM Dictated Date/Time: 08/26/2017 9:16 AM
== END | disposition home or self-care (01) ==
LOC: C.ULTR 08:42
PROVIDERS: ATTEND Urology
DX: E72.09 Other disorders of amino-acid transport (principal)

== ENCOUNTER → 2017-10-14 | Day surgery (SDC) | payer OTHER, BC ==
[2017-09-18 09:50] VITALS: BMI 52.0
--- NOTE | 2017-09-18 10:28 | PAT Medication Instructions ---
Service Date Sep 18, 2017. Current Home Medication List Albuterol Hfa (Ventolin Hfa), 2 PUFFS INH Q6H PRN for SOB/Wheezing Atorvastatin (Lipitor), 0.5 MG PO QAM Budesonide/Formoterol Fumarate (Symbicort 160/4.5 Inhaler ), 2 PUFFS INH BID Fluoxetine (Prozac), 40 MG PO QAM Fluticasone Propionate (Nasal) (Flonase Allergy Relief), 2 SPRAY FRANK QAM Hctz/Losartan (Hyzaar 12.5MG/50MG), 1 TAB PO QAM Ibuprofen (Advil), 200 MG PO UD PRN for Pain Lisdexamfetamine Dimesylate (Vyvanse), 50 MG PO QAM Loratadine (Claritin), 10 MG PO UD PRN for ALLERGY SYMPTOMS Montelukast Sodium (Montelukast Sodium), 1 TAB PO QAM Potassium Citrate-Citric Acid (Potassium Citrate/Citric), 5 ML PO TID Medication Instructions For Your Scheduled Surgery - Hold the following medications per your surgeon's instructions: Ibuprofen (Advil), 200 MG PO UD PRN for Pain - Hold the following medications the morning of surgery: Hctz/Losartan (Hyzaar 12.5MG/50MG), 1 TAB PO QAM Lisdexamfetamine Dimesylate (Vyvanse), 50 MG PO QAM Loratadine (Claritin), 10 MG PO UD PRN for ALLERGY SYMPTOMS Potassium Citrate-Citric Acid (Potassium Citrate/Citric), 5 ML PO TID - Take the following medications the morning of surgery with a sip of water: Albuterol Hfa (Ventolin Hfa), 2 PUFFS INH Q6H PRN for SOB/Wheezing (if needed, and bring this with you the morning of surgery) Atorvastatin (Lipitor), 0.5 MG PO QAM Budesonide/Formoterol Fumarate (Symbicort 160/4.5 Inhaler ), 2 PUFFS INH BID Fluoxetine (Prozac), 40 MG PO QAM Fluticasone Propionate (Nasal) (Flonase Allergy Relief), 2 SPRAY FRANK QAM Montelukast Sodium (Montelukast Sodium), 1 TAB PO QAM If you have any questions please call us at [phone] or [phone] or [phone]
[2017-09-18 11:14] LABS: BASO % 0.3 %; BASO ABS # 0.02 K/uL (0-0.2); EOS % 2.9 %; HEMATOCRIT 39.6 % (37-47); HEMOGLOBIN 13.5 g/dL (12.0-16.0); IG# 0.01 K/uL (0.00-0.02); LYMPH % 30.7 %; MEAN CELL VOLUME 87.4 fL (80-100); MEAN CORPUSCULAR HEMOGLOBIN 29.8 pg (25-34); MEAN CORPUSCULAR HGB CONC 34.1 g/dl (32-36); MEAN PLATELET VOLUME 9.2 fL (7.4-10.4); MONO ABS # 0.55 K/uL (0.11-0.59); NEUT ABS # 3.96 K/uL (1.4-6.5); PLATELET COUNT 309 K/uL (130-400); RED CELL DISTRIBUTION WIDTH CV 13.8 % (11.5-14.5); WHITE BLOOD COUNT 6.84 K/uL (4.8-10.8)
[2017-09-18 11:33] LABS: CALCIUM 9.9 mg/dl (8.5-10.1); CREATININE 0.89 mg/dl (0.60-1.20); POTASSIUM 4.3 mmol/L (3.5-5.1)
--- NOTE | 2017-10-01 09:21 | History and Physical ---
History & Physical Date of Service October 01, 2017. History & Physical CHIEF COMPLAINT: Left knee pain x3 months. HISTORY OF PRESENT ILLNESS: Patient is a pleasant 52-year-old female, who is here today for preoperative history and physical. She is scheduled to have a left knee arthroscopy, chondroplasty with partial medial meniscectomy with Dr. Smith on September 25, 2017 at [facility]. She has been having ongoing and progressively worsening left knee pain since May when she had an injury after falling down some steps. She states that at that time she did feel something snap. She has had pain ever since. She did have an MRI , which showed an abnormality of the body of the meniscus that was with a flipped fragment posteriorly. It also found some chondrosis in the medial and patellofemoral compartments. She had a corticosteroid injection, which she did not receive any long-lasting relief. It did help for a couple of weeks. She had some physical therapy, which accentuated her knee pain. She states that she has pain every day her knee. She has pain with walking, going up and down steps, as well as with driving. 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 Due to failure of conservative treatment, surgical intervention was discussed. She wished to proceed with surgery and surgery was scheduled. PAST MEDICAL HISTORY: 1. Hypertension. 2. High cholesterol. 3. Asthma. 4. Depression. 5. ADHD. 6. Obesity. 7. History of kidney stones. CURRENT MEDICATIONS: 1. Atorvastatin 10 mg half a tab p.o. daily. 2. Symbicort 160 mcg-4.5 mcg inhaled aerosol 2 puffs by mouth twice a day. 3. Citric acid and potassium citrate 334 mg-1100 mg per 5 mL p.o. t.i.d. 4. Hydrochlorothiazide/losartan 12.5 mg per 50 mg one tab p.o. daily. 5. Hydrochlorothiazide 25 mg p.o. daily. 6. Vyvanse 50 mg one capsule p.o. q.a.m. 7. Montelukast 10 mg p.o. q.p.m. 8. Prozac 30 mg daily. 9. Ibuprofen 2 tabs b.i.d. PRN. ALLERGIES: She has no medication allergies. She is allergic to dust and mold. PAST SURGICAL HISTORY: 1. Hysterectomy. 2. Tubal ligation. 3. Kidney stone surgery. 4. Repair of her right hand ligament. 5. Rotator cuff repair. 6. Recent tooth distraction SOCIAL HISTORY: Denies any tobacco use or drug use. 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 She drinks wine on a very rare occasion. FAMILY HISTORY: Reviewed and noncontributory. REVIEW OF SYSTEMS: She denies any recent cough, cold, fevers, chills, flu-like symptoms, or hospitalizations. She denies any headaches, migraine, seizures, syncopal episodes, lightheadedness, or dizziness. She denies any bleeding or clotting disorders. No history of frequent infections or poor wound healing. She denies any chest pain, heart palpitations, or shortness of breath out of the ordinary. She states that she has not needed her rescue inhaler in many months. She feels that her asthma is well controlled. She denies any abdominal pain, nausea, vomiting, diarrhea or constipation, heartburn or indigestion. She denies any urinary symptoms such as foul-smelling urine, frequency, burning, or incontinence. She does complain of pain in her left knee with some mild swelling. Denies any numbness or tingling of any of her extremities. PHYSICAL EXAM: General: She is alert and oriented x3. She is in no acute distress. Well-dressed, well-nourished female. Normal mood and affect. Height is 5 feet 6 inches, weight is 325 pounds. BMI is 52.5. HEENT: Head is atraumatic, normocephalic. Eyes: Extraocular movements intact. Pupils are equal, round, and reactive to light. Sclerae are normal appearing. Ears: Hearing is grossly normal. TMs are clear with normal light reflex. Nose: Nares are patent bilaterally. Normal turbinates. Throat: Oropharynx clear. Mucous membranes moist. Good dentition. Gums not erythematous, recent pulled tooth. Uvula midline. Neck: Supple. No lymphadenopathy. Nontender to palpation. Full range of motion of her neck. Thyroid is normal. No carotid bruits. Trachea midline. Lungs: Clear to auscultation bilaterally. No adventitious sounds. No accessory muscle use. Chest: Nontender to palpation. Heart is regular rate and rhythm and rhythm. Normal S1, S2. No murmurs appreciated. Abdomen: Obese, soft, nontender, nondistended. Bowel sounds heard in all 4 quadrants. EXAM: Exam of her left knee shows no significant effusion of her left knee today. She does have some medial joint line tenderness with palpation. She has no patellar tenderness. She has range of motion is 0 to 125 degrees of flexion. She has some mildly positive flexion circumduction test of the medial compartment. Distal pulses are 1+. Distal sensation is normal. No calf tenderness. Calf is supple. Ambulates with a normal gait with no assistive device. Full painless range of motion of her left hip without any discomfort. RADIOLOGY IMAGES: X-rays of her left bilateral knees showed tibial femoral joint space on medial aspect, but there is lateral patellar subluxation with patellofemoral arthritis of the left knee. MRI of her left knee was also reviewed, which shows to be in a regular meniscus with a flipped meniscal fragment in the back on the posterior aspect of the knee. Medial compartment chondrosis and patellofemoral subluxation and chondrosis are also noted. IMPRESSION: Patellofemoral maltracking with DJD of her left knee and medial meniscal tear. PLAN: She is scheduled for left knee arthroscopy, chondroplasty, and partial medial meniscectomy with Dr. Smith at [facility] on October 14, 2017. Risks and complications of surgery were explained to the patient and include, but are not limited to, infection, pain, bleeding, scarring, nerve and blood vessel damage, wound problems, weakness, stiffness, incomplete relief of symptoms, heart attack, stroke, and , recurrent tear, blood clots, or embolisms. All questions were answered and informed consent was obtained by Dr. Smith at her last visit. She does not need any preoperative EKG, lab work, or medical clearance prior to surgery. Her last EKG was in December of 2016 , which was normal. Postoperative course was discussed, she does have crutches , which she will bring on the day of surgery. She also has a walker to use if necessary. She will follow up in Physical Therapy 4 to 5 days after surgery for a dressing change and then will continue outpatient physical therapy at [place], which is closer to her home. She was given a prescription for [place] for postoperative pain control. The [place] PDMP was checked with no issues identified. She was instructed to use aspirin 325 mg b.i.d. x3 weeks after surgery for DVT prophylaxis. She will follow up with Dr. Smith 10 to 14 days after surgery as scheduled for suture removal. All questions were answered. She will call with any further problems, questions, or concerns prior to surgery.
--- NOTE | 2017-10-13 13:06 | History and Physical ---
History & Physical Date of Service October 13, 2017. History & Physical History & Physical Date of Service October 01, 2017. History & Physical CHIEF COMPLAINT: Left knee pain x3 months. HISTORY OF PRESENT ILLNESS: Patient is a pleasant 52-year-old female, who is here today for preoperative history and physical. She is scheduled to have a left knee arthroscopy, chondroplasty with partial medial meniscectomy with Dr. Smith on October 14, 2017 at the [facility]. She has been having ongoing and progressively worsening left knee pain since May when she had an injury after falling down some steps. She states that at that time she did feel something snap. She has had pain ever since. She did have an MRI , which showed an abnormality of the body of the meniscus that was with a flipped fragment posteriorly. It also found some chondrosis in the medial and patellofemoral compartments. She had a corticosteroid injection, which she did not receive any long-lasting relief. It did help for a couple of weeks. She had some physical therapy, which accentuated her knee pain. She states that she has pain every day her knee. She has pain with walking, going up and down steps, as well as with driving. 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 Due to failure of conservative treatment, surgical intervention was discussed. She wished to proceed with surgery and surgery was scheduled. PAST MEDICAL HISTORY: 1. Hypertension. 2. High cholesterol. 3. Asthma. 4. Depression. 5. ADHD. 6. Obesity. 7. History of kidney stones. CURRENT MEDICATIONS: 1. Atorvastatin 10 mg half a tab p.o. daily. 2. Symbicort 160 mcg-4.5 mcg inhaled aerosol 2 puffs by mouth twice a day. 3. Citric acid and potassium citrate 334 mg-1100 mg per 5 mL p.o. t.i.d. 4. Hydrochlorothiazide/losartan 12.5 mg per 50 mg one tab p.o. daily. 5. Hydrochlorothiazide 25 mg p.o. daily. 6. Vyvanse 50 mg one capsule p.o. q.a.m. 7. Montelukast 10 mg p.o. q.p.m. 8. Prozac 30 mg daily. 9. Ibuprofen 2 tabs b.i.d. PRN. ALLERGIES: She has no medication allergies. She is allergic to dust and mold. PAST SURGICAL HISTORY: 1. Hysterectomy. 2. Tubal ligation. 3. Kidney stone surgery. 4. Repair of her right hand ligament. 5. Rotator cuff repair. 6. Recent tooth distraction SOCIAL HISTORY: Denies any tobacco use or drug use. She does work as a preschool director. She drinks wine on a very rare occasion. FAMILY HISTORY: Reviewed and noncontributory. REVIEW OF SYSTEMS: She denies any recent cough, cold, fevers, chills, flu-like symptoms, or hospitalizations. She denies any headaches, migraine, seizures, syncopal episodes, lightheadedness, or dizziness. She denies any bleeding or clotting disorders. No history of frequent infections or poor wound healing. She denies any chest pain, heart palpitations, or shortness of breath out of the ordinary. She states that she has not needed her rescue inhaler in many months. She feels that her asthma is well controlled. She denies any abdominal pain, nausea, vomiting, diarrhea or constipation, heartburn or indigestion. She denies any urinary symptoms such as foul-smelling urine, frequency, burning, or incontinence. She does complain of pain in her left knee with some mild swelling. Denies any numbness or tingling of any of her extremities. PHYSICAL EXAM: General: She is alert and oriented x3. She is in no acute distress. Well-dressed, well-nourished female. Normal mood and affect. Height is 5 feet 6 inches, weight is 325 pounds. BMI is 52.5. HEENT: Head is atraumatic, normocephalic. Eyes: Extraocular movements intact. Pupils are equal, round, and reactive to light. Sclerae are normal appearing. Ears: Hearing is grossly normal. TMs are clear with normal light reflex. Nose: Nares are patent bilaterally. Normal turbinates. Throat: Oropharynx clear. Mucous membranes moist. Good dentition. Gums not erythematous, recent pulled tooth. Uvula midline. Neck: Supple. No lymphadenopathy. Nontender to palpation. Full range of motion of her neck. Thyroid is normal. No carotid bruits. Trachea midline. Lungs: Clear to auscultation bilaterally. No adventitious sounds. No accessory muscle use. Chest: Nontender to palpation. Heart is regular rate and rhythm and rhythm. Normal S1, S2. No murmurs appreciated. Abdomen: Obese, soft, nontender, nondistended. Bowel sounds heard in all 4 quadrants. EXAM: Exam of her left knee shows no significant effusion of her left knee today. She does have some medial joint line tenderness with palpation. She has no patellar tenderness. She has range of motion is 0 to 125 degrees of flexion. She has some mildly positive flexion circumduction test of the medial compartment. Distal pulses are 1+. Distal sensation is normal. No calf tenderness. Calf is supple. Ambulates with a normal gait with no assistive device. Full painless range of motion of her left hip without any discomfort. RADIOLOGY IMAGES: X-rays of her left bilateral knees showed tibial femoral joint space on medial aspect, but there is lateral patellar subluxation with patellofemoral arthritis of the left knee. MRI of her left knee was also reviewed, which shows to be in a regular meniscus with a flipped meniscal fragment in the back on the posterior aspect of the knee. Medial compartment chondrosis and patellofemoral subluxation and chondrosis are also noted. IMPRESSION: Patellofemoral maltracking with DJD of her left knee and medial meniscal tear. PLAN: She is scheduled for left knee arthroscopy, chondroplasty, and partial medial meniscectomy with Dr. Smith at [facility] on September. Risks and complications of surgery were explained to the patient and include, but are not limited to, infection, pain, bleeding, scarring, nerve and blood vessel damage, wound problems, weakness, stiffness, incomplete relief of symptoms, heart attack, stroke, and , recurrent tear, blood clots, or embolisms. All questions were answered and informed consent was obtained by Dr. Smith at her last visit. She does not need any preoperative EKG, lab work, or medical clearance prior to surgery. Her last EKG was in December of 2016 , which was normal. Postoperative course was discussed, she does have crutches , which she will bring on the day of surgery. She also has a walker to use if necessary. She will follow up in Physical Therapy 4 to 5 days after surgery for a dressing change and then will continue outpatient physical therapy at [place], which is closer to her home. She was given a prescription for [place] for postoperative pain control. The [place] PDMP was checked with no issues identified. She was instructed to use aspirin 325 mg b.i.d. x3 weeks after surgery for DVT prophylaxis. She will follow up with Dr. Smith 10 to 14 days after surgery as scheduled for suture removal. All questions were answered. She will call with any further problems, questions, or concerns prior to surgery.
[~2017-10-14] VITALS: Ht 167.6 cm; Wt 148.5 kg
[~2017-10-14] MED LIST changes: +ASPECOTC PO; +ATOR10TA82 PO; +ATROPINE SULFATE 0.1 MG/ML 5ML SYR IV PRN; +CEFAZOLIN 3000MG IV PUSH 22.5 ML IV SCH; +CEFAZOLIN SOD 3000MG/22.5 ML IV PUSH IV SCH; +CEFAZOLIN SOD 3000MG/22.5 ML IV PUSH ONE; +EpHEDrine SULFATE 50MG/5ML SYR ONE; +EpHEDrine SULFATE INJ 50 MG/ML AMP IV PRN; +EpINEphrine HCL INJ 1 MG/ML 1ML SYRINGE ONE; +FENTANYL CITRATE INJ 50 MCG/1 ML 2 ML VIAL ONE; -FLM4 PO; +HYDR-5688 PO; +HYDROmorphone INJ 0.5 MG/0.5 ML SYR ONE; +HYDROmorphone INJ 1 MG/ML SYR IV PRN; +IBUP-1050 PO; +LACTATED RINGER'S 1000ML 1,000 ML IV SCH; +LIDOCAINE HCL 2% 2 ML VIAL (20MG/ML) ONE; +LIDOCAINE/EPINEPHRINE 1% 20 ML VIAL ONE; +MIDAZOLAM HCL 1 MG/ML 2ML VIAL ONE; +MONT1TAB5 PO; +MoRPHine SULFATE 4 MG/ML 1 ML CARP\\VIAL IV PRN; -ONDA4TAB65 PO; +ONDANSETRON INJ 2 MG/ML 2 ML VIAL IV PRN; +ONDANSETRON INJ 2 MG/ML 2 ML VIAL ONE; -OXYC-57 PO; +OXYCODONE/ACETAMINOPHEN 5-325 TAB PO PRN; +PHENYLEPHRINE 100MCG/ML 5ML SYR IV PRN; +PROPOFOL IV EMULSION 10 MG/ML 20 ML VIAL ONE; +ROCURONIUM BROMIDE 10 MG/ML 5 ML VIAL ONE; +SODIUM CHLORIDE 0.9% 1000ML 1,000 ML IV SCH; +SUCCINYLCHOLINE CHLORIDE 20 MG/ML 10 ML VIAL IV ONE
[2017-10-14 06:07] VITALS: Ht 167.6 cm; Wt 148.5 kg
--- NOTE | 2017-10-14 07:38 | History & Physical Bridge Note ---
H&P Re-Evaluation Bridge Note: I have examined the patient, reviewed the History & Physical and in the interval since the performance of the History & Physical I have noted the following changes of clinical significance: No changes noted
--- NOTE | 2017-10-14 09:22 | [facility] Post Operative Brief Note ---
Immediate Operative Summary Operative Date October 14, 2017. 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 Post-Operative Diagnosis Same as Preop Procedure(s) Performed Left Knee Arthroscopy Chondroplasty with Partial Medial Meniscectomy removal of lateral patellar osteophyte and arthroscopic lateral release Surgeon Dr. Erik Smith Unhairing Machine Operator Surgeon(s) Dr. Adi Lyman, Marcelina Amin PA-C Estimated Blood Loss 10ML Findings Consistent with Post-Op Diagnosis Specimens none per surgeon Drains Large Hemovac drain Anesthesia Type General Complication(s) none Disposition Accompanied Pt To Recover: no Disposition: Recovery Room / PACU
--- NOTE | 2017-10-14 09:43 | [facility] Operative Report ---
Operative Report Operative Date October 14, 2017. 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 Post-Operative Diagnosis Same as Preop Procedure(s) Performed Left Knee Arthroscopy Chondroplasty with Partial Medial Meniscectomy removal of lateral patellar osteophyte and arthroscopic lateral release Surgeon Dr. Erik Smith Club Concierge Surgeon(s) Dr. Adi Lyman, Marcelina Amin PA-C Estimated Blood Loss 10ML Findings Patellofemoral arthrosis. Lateral patellar osteophyte. Lateral femoral condyle chondrosis. Small medial meniscus tear. Diffuse synovitis. Specimens none per surgeon Drains Large Hemovac drain Anesthesia Type General Complication(s) none Disposition no Recovery Room / PACU Indications Patient is a 52-year-old female with left knee pain. Her MRI suggests a truncated medial meniscus with a flipped fragment. She also has patellofemoral femoral chondrosis on her MRI and x-rays. Her symptoms are more medial versus patellofemoral. Description of Procedure Informed consent obtained. Patient identified as Teetee Hernandez. She identified the operative site as the left knee. I marked with my initials. A preop surgical timeout was performed. A preop dose of IV antibiotics was given. She was positioned supine on the OR table no tourniquet was applied. A lateral post was used for stressing the knee. The exam under anesthesia revealed range of motion from 0-120 of flexion the knee was stable to cruciate and collateral ligament stressing. The leg was prepped and draped in the usual sterile fashion. DVT prophylaxis intraoperatively with foot pumps postoperatively with early mobility and aspirin. 1 percent lidocaine with epinephrine was injected into the knee joint fat pad and portal sites preoperatively. Inferolateral viewing portal. Superior lateral outflow portal. Inferomedial working portal. Diagnostic arthroscopy was performed. Synovitis was noted in the suprapatellar pouch. There was diffuse grade 3 and 4 chondrosis of the entire patella with the exception of a small portion of the extreme medial facet and odd facet of the patella. Chondroplasty was performed. There was corresponding grade 3 and 4 chondrosis of the lateral trochlea and patellar articulation of the lateral condyle. 2 osteophytes were noted and they were loose associated with the lateral patella. They were dissected free with manual technique and electrocautery and removed. An arthroscopic lateral release was then performed from the superior portion of the patella down to the lateral portal. A large Hemovac drain was inserted at the conclusion of the operation exiting out the superolateral portal and was not tied in. The fragment was 1.51 cm. There was a large retropatellar fat pad which was debrided. The cruciate ligaments were normal. There is an osteophyte associated with the superior trochlea. The lateral femoral condyle demonstrated an additional area which was 1.51 cm of grade 3 chondrosis in the weightbearing tibial femoral compartment. There were grade 1 changes of the lateral tibial plateau. No loose bodies were noted. Synovitis obscured the popliteal hiatus. The lateral meniscus was intact and stable to probing there was some fraying of the root and in the room which was trimmed. The posterior lateral and posterior medial compartment views were unremarkable there were no loose bodies and no flipped meniscal fragments. Excess was gained into the medial compartment. The chondral surfaces were normal. There is a small 2-3 mm radial tear in the posterior portion of the body. Access to the compartment which was tight was improved by perforating the MCL in a percutaneous fashion with an 18-gauge spinal needle. The meniscal root was normal. The meniscus was probed extensively on its top and bottom surface and visualized from the posterior medial Gillquist views and there was no large meniscal fragment noted. I did remove the radial tear with basket forceps and a motorized shaver removing about 5% to 10% of the meniscus. The shaver was run through need to sisal picker loose debris chondroplasty of the patella and lateral femoral condyle was performed. The medial articular surfaces were normal as was the medial trochlea. The anterior and posterior horns of both menisci were intact. The orthoscopic instruments removed. Portals were closed with 4-0 nylon. The leg was cleaned was wet and dry sponges and a soft sterile dressing was applied consisting of Xeroform 4 x 4's ABDs and a full-length Jenaro wrap. She was awakened from anesthesia without difficulty and taken to the recovery room in stable condition. There were no specimens or complications. Counts were correct in the case. Blood loss was minimal. At the conclusion operation spoke to the patient's family informed of my findings in detail postoperative instructions were given. Bleeding laterally was controlled with the cold cut. She may weight-bear as tolerated. She will be rehabilitated according to the arthroscopic meniscectomy chondroplasty and lateral release plans. Aspirin will be begun this evening for 325 mg p.o. twice daily for DVT prophylaxis I attest to the content of the Intraoperative Record and any orders documented therein. Any exceptions are noted below.
--- NOTE | 2017-10-14 09:43 | Discharge Instructions ---
Discharge Instructions Date of Service October 14, 2017. Visit Reason for Visit: Left Knee Medial Meniscus Tear W/Chondrosis Discharge Discharge Diagnosis / Problem: Left knee medial meniscus tear with chondrosis Discharge Goals Goal(s): Decrease discomfort, Improve function, Increase independence Activity Recommendations Activity Limitations: per Instructions/Follow-up section Weightbearing Status: Left weightbearing (as tolerated with assistance of a walker) Anesthesia . Post Anesthesia Instructions: If you have had General Anesthesia or IV Sedation: * Do not drive today. * Resume driving when surgeon permits. * Do not make important decisions or sign legal documents today. * Call surgeon for: 1. Temperature elevations greater than 101 degrees F. 2. Uncontrollable pain. 3. Excessive bleeding. 4. Persistent nausea and vomiting. 5. Medication intolerance (nausea, vomiting or rash). * For nausea and vomiting use only clear liquids such as: tea, soda, bouillon until nausea subsides, then gradually increase diet as tolerated. * If you have any concerns or questions, call your surgeon's office. If physician is unavailable and it is an emergency, call 911 or go to the nearest emergency room. . Instructions / Follow-Up Instructions / Follow-Up The following are instructions to follow after your Arthroscopic Knee Surgery. ACTIVITY RECOMMENDATIONS: * Minimize activity until your first visit after surgery. * No excessive walking, jogging, sports or laboring. * Return to activity is individualized. Most patients are able to return to every day activities within one month. * Return to sports or intensive labor usually occurs at 2-3 months. * Driving is not permitted until at least your first postoperative visit at a minimum. Please ask your doctor when it is safe to resume driving. If you have an automatic vehicle and your left leg has been operated on, then you may begin driving as soon as you are comfortable and can drive safely. SCHOOL/WORK RECOMMENDATIONS: * You may return to sedentary work or school when you are feeling more comfortable. This is usually 3-7 days after surgery. * Expect increased discomfort with increased activity. Continue to elevate and ice the leg as much as possible. MEDICATIONS: * You will have a prescription for pain medication and an anti-inflammatory medication after surgery. * Use the pain medication for severe pain and the anti-inflammatory for less severe pain. Once the pain medication has run out, try to use the anti-inflammatory medication. If this is not effective, contact the office for assistance. * The pain medication may cause nausea, constipation and drowsiness. You should see how they affect you before driving or similar activity. * The anti-inflammatory medication may cause stomach upset and bleeding. If this occurs let your doctor know immediately . * Take a stool softener like Colace or a laxative like Senokot to prevent constipation. DIET: * Resume previous diet. SPECIAL CARE: ICE: You have the option of an ice cooler, gel packs or ice bags. * If you have an ice cooler, refer to the instructions for that device. The ice cooler may be used continuously. * If you do not have an ice cooler, you will need to use ice bags or gel packs. Do not apply ice directly to the skin. Use a thin dressing or bobby shirt between the skin and ice bag. Apply ice for 20-30 minutes and repeat every 2-4 hours. This is especially important for the first 7-10 days after surgery. Once the pain improves, use ice as needed. ELEVATION: * Keep your leg elevated at or above the level of your heart as much as possible. * Expect some increased discomfort and swelling if you are standing for any length of time. * When lying down, avoid placing anything under your knee. Rather, prop your leg up by placing several pillows under your heel or calf. DRESSING: * Your dressing will be changed at your first therapy appointment approximately 4-5 days after surgery. Band-aids, tape strips or gauze may be applied. You may then change your dressing daily. * Reapply dressing followed by the Jenaro wrap or Tubi-pi/senior research associate stockinet and EBIce cooling pad (if chosen). * Always wash your hands prior to touching the incision area. * Once the stitches are removed, you may leave the wound open to air or cover with an Jenaro wrap or Tubi-pi/senior research associate stockinet. * If you have been given a white elastic stocking (RANDY hose), wear as much as possible for the first 1-3 weeks depending on swelling. * Expect some bloody drainage for the first few days after surgery. * Leave the tape strips, if present, in place for 5-7 days. * Band-aids and gauze may be changed daily. CRUTCHES: * You will need to use crutches after surgery. * You may gradually progress to full weight bearing as tolerated and wean off the crutches unless otherwise advised. * Your therapist can provide assistance weaning off crutches. * Patients who have a microfracture done may need to be toe-touch weight- bearing for 4-6 weeks. BATHING: * You may shower or sponge-bathe immediately after surgery. * The dressing will need to be covered with a plastic bag or plastic wrap until the dressing is changed on the fourth or fifth day after surgery. * Once the dressing has been changed on the fourth or fifth day after surgery, you may shower and get the incision wet. * Wash with regular soap and water. * Do not bathe (submerge the incision), soak, swim or use a hot tub until the incision is completely healed over with normal skin and the doctor has given the OK to proceed. * There is no need to apply any ointments, powders or salves to your incision. * Do not apply alcohol or hydrogen peroxide directly to the incision. * Diluted peroxide (50:50 mixture with sterile saline) may be used to clean dried blood from around the incision area. BRACE: * Bracing is generally not needed after routine Arthroscopic Knee surgery. THERAPY: * You will begin therapy four or five days after surgery. * Organized therapy with the therapist is important for the first 4-6 weeks after surgery. During that time you will attend therapy 1-3 times per week. * You will also need to do daily exercises for range of motion and strength as instructed. PROBLEMS/QUESTIONS: * If you have any problems such as severe pain, numbness, tingling or high fevers or if you have any questions, please contact the office at [phone]. * It is not uncommon to have some numbness and tingling after the surgery especially if you have had a nerve block done. This should gradually improve over the first 1- 2 days. If this persists longer or worsens please contact the office. FOLLOW UP VISIT: * If not already scheduled, please call the office at to schedule a follow-up appointment for 10 days, 6 weeks and 3 months after surgery. *You have a physical therapy appointment on October 17, 2017 at 10 AM. * You have a follow up appointment for dressing change with Marcelina Jesus on 10/15/17 at 1:30 p.m. *You have a follow-up appointment scheduled with Dr. Smith on October 28, 2017 at 9:30 AM. Diet Recommendations Recommended Home Diet: no limitations, resume previous diet Procedures Procedures Performed: Left Knee Arthroscopy Chondroplasty with Partial Medial Meniscectomy removal of lateral patellar osteophyte and arthroscopic lateral release Pending Studies Studies pending at discharge: no Medical Emergencies . Who to Call and When: Medical Emergencies: If at any time you feel your situation is an emergency, please call 911 immediately. . Non-Emergent Contact Non-Emergency issues call your: Surgeon Call Non-Emergent contact if: temperature is above 101, your pain is unusual for you, wound has increased drainage, wound has increased redness, wound has increased pain, you have any medication questions . . "Provider Documentation" section prepared by Marcelina Amin. . [place] Drug Monitoring Program Search Results: patient reviewed within database, no issues identified
[2017-10-14] MEDS: FENTANYL CITRATE INJ 50 MCG/1 ML 2 ML VIAL IV PRN ×4 (09:44→09:59)
--- NOTE | 2017-10-14 09:44 | [facility] Operative Report ---
Operative Report Operative Date October 14, 2017. 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 Post-Operative Diagnosis Same as Preop Procedure(s) Performed Left Knee Arthroscopy Chondroplasty with Partial Medial Meniscectomy removal of lateral patellar osteophyte and arthroscopic lateral release Surgeon Dr. Erik Smith Antique Furniture Reproducer Surgeon(s) Dr. Adi Lyman, Marcelina Amin PA-C Estimated Blood Loss 10ML Findings lateral femoral condyle chondrosis Specimens none per surgeon Drains Large Hemovac drain Anesthesia Type General Complication(s) none Disposition no Recovery Room / PACU Indications Patient is a 52-year-old female who presented to our office with complaints of left knee pain. Her symptoms on the medial side of her left knee. She failed conservative treatment which consisted of physical therapy and a corticosteroid injection. X-rays were taken and found some mild degenerative changes of her left knee. MRI was taken and found to have a possible medial meniscal tear and chondrosis of her left knee. Surgical intervention was discussed due to the failure of conservative treatment. She agreed to proceed with surgery risks and complications were discussed and informed consent was obtained. Description of Procedure Patient was taken to the operating room and placed under general anesthesia. Timeout was performed. She was given 3 g of IV Ancef for surgical prophylaxis. She was prepped and draped in routine sterile fashion. I was present in the entire case, please see Dr. Smith's operative report for further detail. Patient was awakened and transferred to the recovery room in stable condition. I attest to the content of the Intraoperative Record and any orders documented therein. Any exceptions are noted below.
--- NOTE | 2017-10-14 10:22 | Anesthesiology Progress Note ---
Anesthesia Post Op Note Date & Time October 14, 2017 at 10:22 Vital Signs Pain Intensity: 2 Vital Signs Past 12 Hours Date Time Temp Pulse Resp B/P (MAP) Pulse Ox O2 Delivery O2 Flow Rate FiO2 10/14/17 10:14 79 20 10/14/17 10:14 77 20 92 10/14/17 10:12 102/57 10/14/17 10:09 80 21 92 10/14/17 10:09 81 21 10/14/17 10:07 117/72 10/14/17 10:04 78 19 93 10/14/17 10:04 78 19 10/14/17 10:03 76 22 93 10/14/17 10:03 75 22 10/14/17 10:02 136/73 10/14/17 09:58 76 19 98 10/14/17 09:58 76 19 10/14/17 09:57 127/69 10/14/17 09:53 78 17 10/14/17 09:53 77 17 98 10/14/17 09:51 142/77 10/14/17 09:48 79 20 97 10/14/17 09:48 79 20 10/14/17 09:47 79 18 10/14/17 09:47 79 18 123/64 100 10/14/17 09:44 36.4 83 24 129/79 99 Oxymask 10 10/14/17 09:43 129/78 10/14/17 09:42 81 19 10/14/17 09:42 82 19 99 Notes Mental Status: alert / awake / arousable, participated in evaluation Pt Amnestic to Procedure: Yes Nausea / Vomiting: adequately controlled Pain: adequately controlled Airway Patency, RR, SpO2: stable & adequate BP & HR: stable & adequate Hydration State: stable & adequate Anesthetic Complications: no major complications apparent Awake, doing well, no complaints, VSS.
[2017-10-14 11:00] VITALS: BP 113/60; PULSE 68; TEMP 36.4; O2SAT 94
== END | disposition home or self-care (01) ==
LOC: C.ACU 05:46
PROVIDERS: ATTEND Physical Medicine & Rehabilitation Sports Medicine
DX: M94.262 Chondromalacia, left knee (principal); S83.242A Other tear of medial meniscus, current injury, left knee, initial encounter; M17.12 Unilateral primary osteoarthritis, left knee; W10.9XXA Fall (on) (from) unspecified stairs and steps, initial encounter; E66.9 Obesity, unspecified; I10 Essential (primary) hypertension; J45.909 Unspecified asthma, uncomplicated; E78.00 Pure hypercholesterolemia, unspecified; F32.9 Major depressive disorder, single episode, unspecified; Z79.899 Other long term (current) drug therapy; F90.9 Attention-deficit hyperactivity disorder, unspecified type; Z90.710 Acquired absence of both cervix and uterus; Z98.51 Tubal ligation status; Z98.890 Other specified postprocedural states; Z98.818 Other dental procedure status; Z68.43 Body mass index [BMI] 50.0-59.9, adult

== ENCOUNTER 2023-06-06 19:10 | Observation (INO) ==
[2023-06-06] MEDS ORDERED: dilTIAZem HCl 5 MG/ML 5 ML VIAL IV STA (19:45)
[2023-06-06] MEDS ORDERED: SODIUM CHLORIDE 0.9% 1,000 ML IV ONE (19:45)
--- NOTE | 2023-06-06 19:47 | Emergency Department Note ---
Impression & Plan Atrial fibrillation with rapid ventricular response ADMIT ED Provider Note HPI: History obtained from patient. The patient is a 57-year-old female with history of hypertension, morbid obesity, presents emergency department chief complaint of palpitations. Patient states that she developed some chest palpitations for approximately the past 4 hours. Patient states this started when she was shopping earlier today. Patient states at times she is also had some slight chest discomfort but states that she thinks this also might be related to anxiety. On arrival here to the ED the patient is tachycardic in the 150s, EKG is consistent with atrial fibrillation with RVR, patient is also hypertensive on arrival at 171/122. Patient denies any current chest pain. Patient is saturating well on room air on arrival. ROS: - Per HPI Differential Diagnosis: Acute coronary syndrome, pulmonary embolism, arrhythmia to include atrial fibrillation with RVR, SVT, ventricular tachycardia, amongst other potential pathologies. *Outpatient medications and allergy history reviewed. PE: General: Alert, morbidly obese HEENT: Normocephalic, trachea midline Eyes: Extraocular eye movement is intact, no scleral erythema Pulmonary: Clear to auscultation bilaterally, no wheezing Cardio: Tachycardic rate with irregular rhythm GI: Abdomen is soft to palpation : No suprapubic tenderness MSK: No evidence of trauma or malformation of the extremities, no edema Skin: No evidence of rash Neuro: Alert, no focal deficits Psychiatric: Cooperative INDEPENDENT INTERPRETATIONS: monitor tech: (As interpreted by myself): - An order was placed for continuous cardiac monitoring - Patient was noted to be in atrial fibrillation with rate of 156 EKG: (As interpreted by myself): Rate: 142 Rhythm: Atrial fibrillation with RVR Intervals: Within normal limits ST changes: No ST elevation Time: 1925 EKG #2: (As interpreted by myself): Rate: 63 Rhythm: Sinus rhythm Intervals: Within normal limits ST changes: No ST elevation Time: 0804 Chest x-ray: (As interpreted by myself): No acute disease Interventions provided in ED: -IV fluid bolus, IV diltiazem Medical Decision Making: Shortly after the patient arrived IV was established and lab work obtained, patient was placed on bus monitor, EKG as interpreted by myself shows evidence of atrial fibrillation with RVR with rate in the 140s. Patient's blood pressure is initially elevated on arrival therefore patient was initiated with an IV fluid bolus and an IV bolus of diltiazem. Patient's heart rate did quickly respond and patient went back into sinus rhythm. Lab work otherwise shows no leukocytosis, hemoglobin is normal, platelet count is normal, CMP does not show any critical findings, troponin is negative x 1. TSH is within normal limits. Magnesium is also within normal limits. D-dimer was obtained as the patient did complain of some mild chest discomfort earlier, this is mildly elevated at 610. CT angiography of the chest was therefore ordered and obtained and is pending formal interpretation by stat rad radiology. Given that the patient had an episode of new onset atrial fibrillation today, consultation was placed with the [facility] for admission. Patient was placed for admission in stable condition with results of CT angiography pending. Patient is updated and aware of the above findings and she is in agreement for admission. Consultants/Discussions held with other healthcare providers: -[facility], Dr. Ernandez Disposition discussion held by myself with: -Patient * CRITICAL CARE TIME: ( 45 ) minutes -Stabilization of tachyarrhythmia/atrial fibrillation with RVR requiring IV rate control medications for improvement/correction, time spent at the bedside, interpretation of diagnostic studies including multiple EKGs, consultation with other healthcare providers for arrangement of admission. Diagnosis: 1. Atrial fibrillation with RVR, acute 2. New onset atrial fibrillation 3. Dyspnea, acute 4. Elevated D-dimer level Disposition: Admission Issac Rascon DO Emergency Medicine Past Med/Surg History Medical History ADHD Fatty liver Asthma Heart murmur History of kidney stones History of COVID-19 History of anesthesia reaction IBS (irritable bowel syndrome) Depression Hypertension Hyperlipidemia Incidental adrenal cortical adenoma Surgical History History of sleeve gastrectomy History of hysterectomy History of carpal tunnel surgery of right wrist History of hand surgery History of repair of left rotator cuff History of arthroscopy of left knee History of lithotripsy History of cystoscopy History of tooth extraction History of endoscopic sinus surgery Status post myringotomy with tube placement of both ears H/O tubal ligation Family History Grandmother (Maternal) Colon cancer FH: deafness or hearing loss Breast cancer Uterine cancer Mother Asthma Hypertension History of coronary artery bypass surgery Uterine cancer Pancreatic cancer Son Asthma Grandfather (Maternal) FH: deafness or hearing loss Prostate cancer Aunt Cancer Other No family history of adverse response to anesthesia Sinusitis Denies family history of Ovarian cancer Cardiac disorder Allergies Myocardial infarction Adverse anesthesia outcome Bleeding disorder Stroke Social History Smoking Status: Never smoker Second Hand Exposure: No; Do You Dip or Chew Tobacco: No; Hx Alcohol Use: No Hx Substance Use: No Preferred Language: Divehi Communication Ability: Effective Visual Impairment: No Limitations Hearing Ability: Normal Final Operations Technician Required: No Beliefs That Will Affect Care: None marital status: Current Living Situation: Spouse current occupational status: employed 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 How many Children do You have: 2 Feels Safe at Home: Yes Childhood Exposure to Second-Hand Smoke: Yes Diet: ideal protein and regular Dental Care, Regularly: No Physical Activity Frequency: Daily Seatbelt Use: sometimes Sunscreen Use: Yes Assistive Devices: Denture - Upper, Glasses and Nebulizer Allergies Allergies Allergy/AdvReac Type Severity Reaction Status Date / Time mold Allergy Unknown UPPER Verified 06/06/23 20:38 RESPIRATORY ISSUES, FLARE UP OF ASTHMA house dust Allergy upper Verified 06/06/23 20:38 respiratory issues, flare-up asthma Home Meds Home Medications Medication Instructions Recorded Confirmed fluoxetine 40 mg capsule (Prozac) 40 mg PO HS 02/06/18 06/06/23 multivitamin,[id number] 1 tab PO HS 12/01/18 06/06/23 (Complete Multivitamin tablet) cholecalciferol (vitamin D3) 50 2,000 units PO PM 01/28/19 06/06/23 mcg (2,000 unit) capsule lisdexamfetamine 40 mg capsule 40 mg PO QAM 09/28/19 06/06/23 (Vyvanse) acetaminophen 500 mg tablet 1,000 mg PO Q8H PRN pain/fever 03/22/21 06/06/23 (Tylenol Extra Strength) potassium citrate 10 mEq (1,080 10 meq PO DAILY 10/16/22 06/06/23 mg) tablet,extended release Previous Rx's Medication Instructions Recorded azelastine 137 mcg-fluticasone 50 1 - 2 spray intranasal DAILY PRN 02/15/21 mcg/spray nasal spray (Dymista) ALLERGIES #23 grams ibuprofen 200 mg tablet (Advil) 600 mg (3 x 200 mg) PO QID PRN 02/22/21 fever or pain #30 tabs albuterol sulfate 2.5 mg/3 mL 2.5 mg (3 mL) inhalation Q4 PRN 10/11/21 (0.083 %) solution for nebulization Shortness Of Breath #540 mL losartan 100 mg tablet 100 mg PO PM #90 tabs 07/25/22 albuterol sulfate 90 mcg/actuation 2 puff inhalation QID PRN asthma 09/27/22 aerosol inhaler (Ventolin HFA) #18 grams montelukast 10 mg tablet 10 mg PO QPM #90 tabs 09/27/22 (Singulair) metoprolol succinate 25 mg 50 mg (2 x 25 mg) PO PM #180 tabs 02/24/23 tablet,extended release 24 hr atorvastatin 10 mg tablet (Lipitor) 10 mg PO HS Dyslipidemia #90 tabs 05/14/23 clonidine 0.3 mg/24 hr weekly 1 patch topical WK #12 ea 05/30/23 transdermal patch Results & Data (ED) Vital Signs Vital Signs - 24 hr 06/06/23 19:14 06/06/23 19:20 06/06/23 19:42 Temperature 36.4 C L Temperature Source Temporal Artery Scan Pulse Rate 154 H Pulse Rate [Apical] 146 H Pulse Rate from SpO2 Sensor Pulse Rhythm [Apical] Irregular Respiratory Rate 20 20 Respiratory Effort / Characteristics Non-Labored Spontaneous Non-Labored Spontaneous Respiratory Depth Normal Normal Respiratory Pattern Regular Blood Pressure 171/122 H Blood Pressure [Right Arm] 169/113 H Blood Pressure Mean 138 Blood Pressure Mean [Right Arm] 131 Blood Pressure Position Sitting Blood Pressure Position [Right Arm] Semi-fowlers Pulse Oximetry 98 98 99 Oxygen Delivery Method Room Air Room Air Room Air Sepsis Recent Fever Within 48 Hours No Sepsis New/Unexplained Change in Mental Status No Sepsis Action Taken by Nursing No Action Required 06/06/23 19:45 06/06/23 20:08 06/06/23 20:30 Temperature Temperature Source Pulse Rate 135 H Pulse Rate [Apical] Pulse Rate from SpO2 Sensor 75 67 Pulse Rhythm [Apical] Respiratory Rate 22 Respiratory Effort / Characteristics Respiratory Depth Respiratory Pattern Blood Pressure 172/90 H Blood Pressure [Right Arm] Blood Pressure Mean 117 Blood Pressure Mean [Right Arm] Blood Pressure Position Blood Pressure Position [Right Arm] Pulse Oximetry 98 98 Oxygen Delivery Method Sepsis Recent Fever Within 48 Hours Sepsis New/Unexplained Change in Mental Status Sepsis Action Taken by Nursing 06/06/23 21:00 06/06/23 22:57 Temperature Temperature Source Pulse Rate Pulse Rate [Apical] 74 Pulse Rate from SpO2 Sensor 65 Pulse Rhythm [Apical] Respiratory Rate 14 Respiratory Effort / Characteristics Non-Labored Spontaneous Respiratory Depth Normal Respiratory Pattern Blood Pressure 148/87 H Blood Pressure [Right Arm] 163/85 H Blood Pressure Mean 107 Blood Pressure Mean [Right Arm] 111 Blood Pressure Position Blood Pressure Position [Right Arm] Pulse Oximetry 99 97 Oxygen Delivery Method Room Air Sepsis Recent Fever Within 48 Hours Sepsis New/Unexplained Change in Mental Status Sepsis Action Taken by Nursing Laboratory Data 06/06/23 19:43 06/06/23 19:43 Lab Results 06/06/23 Range/Units 19:43 WBC 8.42 (4.8-10.8) K/ul RBC 5.13 (4.20-5.40) M/uL Hgb 15.1 (12.0-16.0) g/dl Hct 45.2 (37.0-47.0) % MCV 88.1 (80.0-100.0) fL MCH 29.4 (25.0-34.0) pg MCHC 33.4 (32.0-36.0) g/dL RDW Std Deviation 43.6 (36.4-46.3) fL RDW Coeff of Isabelle 13.5 (11.5-14.5) % Plt Count 147 (130-400) K/uL MPV 10.4 (9.4-12.4) fL Immature Gran % (Auto) 0.4 % Neut % (Auto) 61.8 % Lymph % (Auto) 26.5 % Thomas % (Auto) 8.8 % Eos % (Auto) 2.1 % Baso % (Auto) 0.4 % Neut # (Auto) 5.21 (1.40-6.50) K/uL Lymph # (Auto) 2.23 (1.20-3.40) K/uL Thomas # (Auto) 0.74 H (0.11-0.59) K/uL Eos # (Auto) 0.18 (0.00-0.50) K/uL Baso # (Auto) 0.03 (0.00-0.20) K/uL Immature Gran # (Auto) 0.03 (0.01-0.20) K/uL PT 9.9 (9.0-12.0) Seconds INR 0.9 (0.9-1.1) APTT 28 (21-31) Seconds PTT Ratio 1.0 D-Dimer 610 H* (0-500) ug/L FEU Sodium 138 (136-145) mmol/L Potassium 3.6 (3.5-5.1) mmol/L Chloride 103 (98-107) mmol/L Carbon Dioxide 26 (21-32) mmol/L Anion Gap 9 (3-11) BUN 18 (6-23) mg/dl Creatinine 0.90 (0.6-1.2) mg/dl Est Cr Clr Drug Dosing 90.8 ml/min Est GFR ( Amer) 81.7 ml/min Est GFR (Non-Af Amer) 70.5 ml/min BUN/Creatinine Ratio 20.0 (10-20) Glucose 95 (70-99(Fasting)) mg/dl Calcium 10.0 (8.6-10.3) mg/dl Magnesium 2.0 (1.7-2.4) mg/dl Total Bilirubin 0.5 (0.2-1.0) mg/dl AST 27 (13-39) U/L ALT 29 (7-52) U/L Alkaline Phosphatase 139 H (34-104) U/L Troponin I High Sens 8.6 (0-14) pg/ml Total Protein 8.2 (6.0-8.3) gm/dl Albumin 4.6 (3.4-5.0) gm/dl Globulin 3.6 (2.5-4.0) gm/dl Albumin/Globulin Ratio 1.3 (0.9-2) TSH 2.305 (0.300-4.500) uIu/ml Administered Medications Potassium Chloride/Sodium Chloride (Normal Saline W/20 Meq Kcl) 20 meq in 1,000 mls @ 100 mls/hr IV .Q10H STA; Protocol Stop: 06/07/23 08:01 Last Admin: 06/06/23 22:53 Dose: 100 mls/hr Documented By: RobbyKP Discontinued Medications Diltiazem HCl (Diltiazem Hcl 5 Mg/Ml 5 Ml Vial) 15 mg IV NOW STA Stop: 06/06/23 19:46 Last Admin: 06/06/23 19:51 Dose: 15 mg Documented By: RobbyT Co-signed By: MARU Sodium Chloride (Nss) 1,000 mls @ 999 mls/hr IV .Q1H1M ONE Stop: 06/06/23 20:45 Last Infusion: 06/06/23 21:17 Dose: Infused Documented By: Admin: 06/06/23 19:51 Dose: 999 mls/hr Documented By: LILY Potassium Chloride (K Chaim / Wtr) 10 meq in 100 mls @ 100 mls/hr IV ONE STA Stop: 06/06/23 22:30 Last Admin: 06/06/23 21:54 Dose: Not Given Documented By: MARU Ioversol (Optiray 320 125ml) 118 ml IV ONCE ONE Stop: 06/06/23 22:37 Last Admin: 06/06/23 22:37 Dose: 118 ml Documented By: PLW Potassium Chloride (Potassium Chloride Crtab 20 Meq Tabcr) 40 meq PO NOW STA Stop: 06/06/23 21:30 Last Admin: 06/06/23 21:54 Dose: 40 meq Documented By: MARU Imaging Data Radiologist's Impression: Chest X-Ray 06/06/23 19:20 SINGLE VIEW CHEST CLINICAL HISTORY: Atypical chest pain. FINDINGS: An AP, portable, upright chest radiograph is compared to study dated 02/06/2020. The examination is degraded by portable technique and apical lordotic positioning. The the heart is enlarged. The pulmonary vasculature is noncongested. Chronic interstitial thickening is similar to previous. There is mild bibasilar atelectasis. The lungs and pleural spaces are otherwise clear. No pneumothorax is seen. The skeletal structures are osteopenic. The bony thorax is grossly intact. Postoperative change is noted in the right shoulder. IMPRESSION: Cardiomegaly with no active disease in the chest. ACT 112: Negative or not required by law. Electronically signed by: Rory Dc M.D. 06/06/2023 11:00 PM Discharge Plan Visit Data Chief Complaint: Cardiac Assessment Stated Complaint: HIGH HEART RATE, SOB, PALPITATIONS ED Provider: Issac Rascon Discharge Problem: Atrial fibrillation with rapid ventricular response Forms Stand Alone Forms: [facility] Prescriptions Prescriptions: No Action albuterol sulfate 2.5 mg /3 mL (0.083 %) solution for nebulization 2.5 mg INHALATION Q4 PRN (Reason: Shortness Of Breath) Qty: 540 1RF losartan 100 mg tablet 100 mg PO PM Qty: 90 3RF metoprolol succinate 25 mg tablet extended release 24 hr 50 mg PO PM Qty: 180 3RF atorvastatin [Lipitor] 10 mg tablet 10 mg PO HS Qty: 90 3RF clonidine 0.3 mg/24 hr patch weekly 1 patch topical WK Qty: 12 3RF Rx Instructions: Vyvanse 40 mg capsule 40 mg PO QAM potassium citrate 10 mEq (1,080 mg) tablet extended release 10 meq PO DAILY Dymista 137-50 mcg/spray spray,non-aerosol 1 - 2 spray INTNAS DAILY PRN (Reason: ALLERGIES) Qty: 23 3RF Rx Instructions: 1-2 Sprays INTNAS DAILY; albuterol sulfate [Ventolin HFA] 90 mcg/actuation HFA aerosol inhaler 2 puff INHALATION QID PRN (Reason: asthma) Qty: 18 3RF montelukast [Singulair] 10 mg tablet 10 mg PO QPM Qty: 90 4RF cholecalciferol (vitamin D3) 2,000 unit capsule 2,000 units PO PM acetaminophen [Tylenol Extra Strength] 500 mg tablet 1,000 mg PO Q8H PRN (Reason: pain/fever) Complete Multivitamin tablet 1 tab PO HS fluoxetine [Prozac] 40 mg capsule 40 mg PO HS ibuprofen [Advil] 200 mg tablet 600 mg PO QID PRN (Reason: fever or pain) Qty: 30 0RF Referrals Referrals: Tj Rowe III, CRNP [Primary Care Provider] -
[2023-06-06 20:51] LABS: Basophils # (auto) 0.03 K/uL (0.00-0.20); Basophils % (auto) 0.4 %; Eosinophils # (auto) 0.18 K/uL (0.00-0.50); Eosinophils % (auto) 2.1 %; Hematocrit (blood only) 45.2 % (37.0-47.0); Hemoglobin 15.1 g/dl (12.0-16.0); Immature Granulocytes # (auto) 0.03 K/uL (0.01-0.20); Immature Granulocytes % (auto) 0.4 %; Lymphocytes # (auto) 2.23 K/uL (1.20-3.40); Lymphocytes % (auto) 26.5 %; Mean Corpuscular Hemoglobin 29.4 pg (25.0-34.0); Mean Corpuscular Hgb Conc 33.4 g/dL (32.0-36.0); Mean Corpuscular Volume 88.1 fL (80.0-100.0); Mean Platelet Volume 10.4 fL (9.4-12.4); Monocytes # (auto) 0.74 K/uL (0.11-0.59); Monocytes % (auto) 8.8 %; Neutrophils # (auto) 5.21 K/uL (1.40-6.50); Neutrophils % (auto) 61.8 %; Platelet Count 147 K/uL (130-400); RDW Coefficient of Variation 13.5 % (11.5-14.5); RDW Standard Deviation 43.6 fL (36.4-46.3); Red Blood Count 5.13 M/uL (4.20-5.40); White Blood Count 8.42 K/ul (4.8-10.8)
[2023-06-06 20:52] LABS: Albumin Globulin Ratio 1.3 (0.9-2); Albumin Level 4.6 gm/dl (3.4-5.0); Bilirubin,Total 0.5 mg/dl (0.2-1.0); Creatinine Clr Calc Pharmacy 90.8 ml/min; Est GFR (African American) 81.7 ml/min; Est GFR (Non-African American) 70.5 ml/min; Globulin 3.6 gm/dl (2.5-4.0); Potassium 3.6 mmol/L (3.5-5.1); Total Protein 8.2 gm/dl (6.0-8.3)
[2023-06-06 20:57] LABS: Troponin I High Sensitivity 8.6 pg/ml (0-14)
[2023-06-06 20:58] LABS: INR 0.9 (0.9-1.1); Partial Thromboplastin Time 28 Seconds (21-31); Prothrombin Time 9.9 Seconds (9.0-12.0)
[2023-06-06 21:07] LABS: Thyroid Stimulating Hormone 2.305 uIu/ml (0.300-4.500)
[2023-06-06] MEDS ORDERED: POTASSIUM CHLORIDE CRTAB 20 MEQ TABCR PO STA (21:29)
[2023-06-06] MEDS ORDERED: POTASSIUM CHLORIDE / WTR 10 MEQ/100 ML PLCT IV STA (21:31)
--- NOTE | 2023-06-06 21:51 | History & Physical Report ---
Date of Service June 06, 2023 Assessment & Plan (1) Atrial fibrillation with rapid ventricular response: (2) Restrictive lung disease secondary to obesity: (3) Benign hypertension: (4) Hypercholesterolemia: (5) Dysmetabolic syndrome X: (6) Attention deficit disorder without hyperactivity: (7) Asthma, mild persistent: Plan Atrial fibrillation with RVR/hypertension- The patient will be admitted to telemetry for serial cardiac enzymes, serial EKG's, cardiac rhythm monitoring and a 2-D echocardiogram with Dopplers. First-time occurrence Improved rate after diltiazem 10 mg IV and conversion to normal sinus rhythm Potassium is relatively low at 3.6, with target 4.0 or above Give Klor-Con 40 mill equivalents p.o. now, and 1 10 mEq K rider [facility] in a.m. Magnesium 2.0 Continue metoprolol succinate ER 50 mg every evening Continue losartan 10 mg every evening continue clonidine patch Will need to be careful about use of lisdexamfetamine Placed on aspirin 81 mg daily Hold on anticoagulation for now until assessed by cardiology Asthma- Continue usual inhalers and montelukast Depression- Continue fluoxetine History of Present Illness Chief Complaint: The patient presents to the emergency department with complaint of palpitations, rapid heart rate, and mild chest tightness that began about 4 hours prior to arrival while shopping Primary Care Provider: Tj Rowe III, NEGRITO The patient is a 57-year-old female with a past medical history including cystinuria, vitamin D deficiency, SNHL, restrictive lung disease, hypertension, hypercholesterolemia, dysmetabolic syndrome X, depression, ADHD without hyperactivity, mild persistent asthma, morbid obesity, and history of sleeve gastrectomy. The patient reports that she was out shopping today, when she developed acute onset of palpitations, rapid heart rate, and presented to the ED for assessment. Upon arrival to the ED, she was found to be in new onset atrial fibrillation with RVR. She received a dose of diltiazem 15 mg IV, and 1 L normal saline, and had improvement in heart rate and conversion to normal sinus rhythm in the 70s very quickly. Allergies Allergy/AdvReac Type Severity Reaction Status Date / Time mold Allergy Unknown UPPER Verified 06/06/23 20:38 RESPIRATORY ISSUES, FLARE UP OF ASTHMA house dust Allergy upper Verified 06/06/23 20:38 respiratory issues, flare-up asthma Home Medications Medication Instructions Recorded Confirmed Type fluoxetine 40 mg capsule (Prozac) 40 mg PO HS 02/06/18 06/06/23 History multivitamin,[id number] 1 tab PO HS 12/01/18 06/06/23 History (Complete Multivitamin tablet) cholecalciferol (vitamin D3) 50 2,000 units PO PM 01/28/19 06/06/23 History mcg (2,000 unit) capsule lisdexamfetamine 40 mg capsule 40 mg PO QAM 09/28/19 06/06/23 History (Vyvanse) azelastine 137 mcg-fluticasone 50 1 - 2 spray intranasal DAILY PRN 02/15/21 06/06/23 Rx mcg/spray nasal spray (Dymista) ALLERGIES #23 grams ibuprofen 200 mg tablet (Advil) 600 mg (3 x 200 mg) PO QID PRN 02/22/21 06/06/23 Rx fever or pain #30 tabs acetaminophen 500 mg tablet 1,000 mg PO Q8H PRN pain/fever 03/22/21 06/06/23 History (Tylenol Extra Strength) albuterol sulfate 2.5 mg/3 mL 2.5 mg (3 mL) inhalation Q4 PRN 10/11/21 06/06/23 Rx (0.083 %) solution for nebulization Shortness Of Breath #540 mL losartan 100 mg tablet 100 mg PO PM #90 tabs 07/25/22 06/06/23 Rx albuterol sulfate 90 mcg/actuation 2 puff inhalation QID PRN asthma 09/27/22 06/06/23 Rx aerosol inhaler (Ventolin HFA) #18 grams montelukast 10 mg tablet 10 mg PO QPM #90 tabs 09/27/22 06/06/23 Rx (Singulair) potassium citrate 10 mEq (1,080 10 meq PO DAILY 10/16/22 06/06/23 History mg) tablet,extended release metoprolol succinate 25 mg 50 mg (2 x 25 mg) PO PM #180 tabs 02/24/23 06/06/23 Rx tablet,extended release 24 hr atorvastatin 10 mg tablet (Lipitor) 10 mg PO HS Dyslipidemia #90 tabs 05/14/23 06/06/23 Rx clonidine 0.3 mg/24 hr weekly 1 patch topical WK #12 ea 05/30/23 06/06/23 Rx transdermal patch Past Med/Surg History Medical History ADHD Fatty liver Asthma Heart murmur History of kidney stones History of COVID-19 History of anesthesia reaction IBS (irritable bowel syndrome) Depression Hypertension Hyperlipidemia Incidental adrenal cortical adenoma Surgical History History of sleeve gastrectomy History of hysterectomy History of carpal tunnel surgery of right wrist History of hand surgery History of repair of left rotator cuff History of arthroscopy of left knee History of lithotripsy History of cystoscopy History of tooth extraction History of endoscopic sinus surgery Status post myringotomy with tube placement of both ears H/O tubal ligation Family History Grandmother (Maternal) Colon cancer FH: deafness or hearing loss Breast cancer Uterine cancer Mother Asthma Hypertension History of coronary artery bypass surgery Uterine cancer Pancreatic cancer Son Asthma Grandfather (Maternal) FH: deafness or hearing loss Prostate cancer Aunt Cancer Other No family history of adverse response to anesthesia Sinusitis Denies family history of Ovarian cancer Cardiac disorder Allergies Myocardial infarction Adverse anesthesia outcome Bleeding disorder Stroke Social History Smoking Status: Never smoker Second Hand Exposure: No; Do You Dip or Chew Tobacco: No; Hx Alcohol Use: No Hx Substance Use: No Preferred Language: [place] Islander Communication Ability: Effective Visual Impairment: No Limitations Hearing Ability: Normal Security Analyst Required: No Beliefs That Will Affect Care: None marital status: Current Living Situation: Spouse current occupational status: employed 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 How many Children do You have: 2 Feels Safe at Home: Yes Childhood Exposure to Second-Hand Smoke: Yes Diet: ideal protein and regular Dental Care, Regularly: No Physical Activity Frequency: Daily Seatbelt Use: sometimes Sunscreen Use: Yes Assistive Devices: Denture - Upper, Glasses and Nebulizer Review of Systems Review of Systems: The patient denies shortness of breath, dyspnea on exertion, cough, lower extremity swelling, sore throat, fevers, chills, sweats, fatigue, nausea, vomiting, diarrhea , constipation, abdominal pain, pelvic pain, blood in urine or stool, dysuria, urinary frequency or urgency, lightheadedness, dizziness, headache, memory loss, loss of consciousness, rash, abnormal bruising or bleeding, imbalance, focal or generalized weakness, numbness or tingling in arms or legs, generalized arthralgias or myalgias, back or neck pain, or night sweats. The review of systems is otherwise negative other than for that already noted above, and at least 10 systems have been reviewed. Physical Exam Physical Exam: The patient is awake, alert and oriented 3, well developed and well nourished, normocephalic and atraumatic, lying in bed and in no acute distress. HEENT--PERRL, EOMI, mucous membranes and oropharynx dry. Neck--supple. No JVD. No bruits. Thyroid normal, trachea midline, no adenopathy. Heart--normal S1 and S2. No murmurs, rubs or gallops. Lungs--clear bilaterally, no respiratory distress, no accessory muscle use. Abdomen--normal bowel sounds and soft. Nontender. Nondistended, no hernias or masses, no organomegaly. Extremities--no cyanosis or clubbing. No edema. There are good distal pulses b/l. Dermatologic--normal skin turgor, normal color, no abnormal lymph nodes, no rash. Neurologic--cranial nerves II through XII grossly intact. Rheumatologic--normal range of motion. Psychiatric--normal affect. Results & Data Results & Data Vital Signs (Past 12 Hours) Vital Signs Temp Pulse Pulse Resp BP BP Pulse Ox 06/06/23 21:00 148/87 H 99 06/06/23 20:30 98 06/06/23 20:08 22 172/90 H 98 06/06/23 19:42 146 H 20 169/113 H 99 06/06/23 19:20 98 06/06/23 19:14 36.4 C L 154 H 20 171/122 H 98 O2 Del Method 06/06/23 21:00 06/06/23 20:30 06/06/23 20:08 06/06/23 19:42 Room Air 06/06/23 19:20 Room Air 06/06/23 19:14 Room Air Laboratory Results Laboratory Results WBC 8.42 K/ul (4.8-10.8) 06/06/23 19:43 RBC 5.13 M/uL (4.20-5.40) 06/06/23 19:43 Hgb 15.1 g/dl (12.0-16.0) 06/06/23 19:43 Hct 45.2 % (37.0-47.0) 06/06/23 19:43 MCV 88.1 fL (80.0-100.0) 06/06/23 19:43 MCH 29.4 pg (25.0-34.0) 06/06/23 19:43 MCHC 33.4 g/dL (32.0-36.0) 06/06/23 19:43 RDW Std Deviation 43.6 fL (36.4-46.3) 06/06/23 19:43 RDW Coeff of Isabelle 13.5 % (11.5-14.5) 06/06/23 19:43 Plt Count 147 K/uL (130-400) 06/06/23 19:43 MPV 10.4 fL (9.4-12.4) 06/06/23 19:43 Immature Gran % (Auto) 0.4 % 06/06/23 19:43 Neut % (Auto) 61.8 % 06/06/23 19:43 Lymph % (Auto) 26.5 % 06/06/23 19:43 Grundy % (Auto) 8.8 % 06/06/23 19:43 Eos % (Auto) 2.1 % 06/06/23 19:43 Baso % (Auto) 0.4 % 06/06/23 19:43 Neut # (Auto) 5.21 K/uL (1.40-6.50) 06/06/23 19:43 Lymph # (Auto) 2.23 K/uL (1.20-3.40) 06/06/23 19:43 Grundy # (Auto) 0.74 K/uL (0.11-0.59) H 06/06/23 19:43 Eos # (Auto) 0.18 K/uL (0.00-0.50) 06/06/23 19:43 Baso # (Auto) 0.03 K/uL (0.00-0.20) 06/06/23 19:43 Immature Gran # (Auto) 0.03 K/uL (0.01-0.20) 06/06/23 19:43 PT 9.9 Seconds (9.0-12.0) 06/06/23 19:43 INR 0.9 (0.9-1.1) 06/06/23 19:43 APTT 28 Seconds (21-31) 06/06/23 19:43 PTT Ratio 1.0 06/06/23 19:43 D-Dimer 610 ug/L FEU (0-500) H* 06/06/23 19:43 Sodium 138 mmol/L (136-145) 06/06/23 19:43 Potassium 3.6 mmol/L (3.5-5.1) 06/06/23 19:43 Chloride 103 mmol/L (98-107) 06/06/23 19:43 Carbon Dioxide 26 mmol/L (21-32) 06/06/23 19:43 Anion Gap 9 (3-11) 06/06/23 19:43 BUN 18 mg/dl (6-23) 06/06/23 19:43 Creatinine 0.90 mg/dl (0.6-1.2) 06/06/23 19:43 Est Cr Clr Drug Dosing 90.8 ml/min 06/06/23 19:43 Est GFR ( Amer) 81.7 ml/min 06/06/23 19:43 Est GFR (Non-Af Amer) 70.5 ml/min 06/06/23 19:43 BUN/Creatinine Ratio 20.0 (10-20) 06/06/23 19:43 Glucose 95 mg/dl (70-99(Fasting)) 06/06/23 19:43 Calcium 10.0 mg/dl (8.6-10.3) 06/06/23 19:43 Magnesium 2.0 mg/dl (1.7-2.4) 06/06/23 19:43 Total Bilirubin 0.5 mg/dl (0.2-1.0) 06/06/23 19:43 AST 27 U/L (13-39) 06/06/23 19:43 ALT 29 U/L (7-52) 06/06/23 19:43 Alkaline Phosphatase 139 U/L (34-104) H 06/06/23 19:43 Troponin I High Sens 8.6 pg/ml (0-14) 06/06/23 19:43 Total Protein 8.2 gm/dl (6.0-8.3) 06/06/23 19:43 Albumin 4.6 gm/dl (3.4-5.0) 06/06/23 19:43 Globulin 3.6 gm/dl (2.5-4.0) 06/06/23 19:43 Albumin/Globulin Ratio 1.3 (0.9-2) 06/06/23 19:43 TSH 2.305 uIu/ml (0.300-4.500) 06/06/23 19:43 Impressions Chest X-Ray 06/06/23 19:20 SINGLE VIEW CHEST CLINICAL HISTORY: Atypical chest pain. FINDINGS: An AP, portable, upright chest radiograph is compared to study dated 02/06/2020. The examination is degraded by portable technique and apical lordotic positioning. The the heart is enlarged. The pulmonary vasculature is noncongested. Chronic interstitial thickening is similar to previous. There is mild bibasilar atelectasis. The lungs and pleural spaces are otherwise clear. No pneumothorax is seen. The skeletal structures are osteopenic. The bony thorax is grossly intact. Postoperative change is noted in the right shoulder. IMPRESSION: Cardiomegaly with no active disease in the chest. ACT 112: Negative or not required by law. Electronically signed by: Rory Dc M.D. 06/06/2023 11:00 PM Code Status & VTE Plan Code Status Full code VTE Prophylaxis Plan VTE Prophylaxis will be ordered: Yes PG Care Time/CCT Total # of Minutes Spent Total Time Spent with Patient: Total time spent is greater than 50% in coordination of care (as documented) at patient's floor/unit and/or counseling patient: Coding Level of Care Code 61584 INT INP/OBS CARE 3/75MIN Diagnoses Atrial fibrillation with rapid ventricular response I48.91 Restrictive lung disease secondary to obesity J98.4; E66.9 Benign hypertension I10 Hypercholesterolemia E78.00 Dysmetabolic syndrome X E88.81 Attention deficit disorder without hyperactivity F98.8 Mild persistent asthma without complication J45.30 Asthma complication type: uncomplicated (7) Asthma, mild persistent Asthma complication type: uncomplicated Qualified Code(s): J45.30 - Mild persistent asthma, uncomplicated
[2023-06-06] MEDS ORDERED: NSS + 20MEQ KCL 20 MEQ/1,000 ML BAG IV STA (22:02)
[2023-06-06] MEDS ORDERED: OPTIRAY 320 125ml IV ONE (22:36)
[2023-06-06 22:37] LABS: D Dimer 610 ug/L FEU (0-500)
--- NOTE | 2023-06-06 23:01 | XRay Report ---
SINGLE VIEW CHEST CLINICAL HISTORY: Atypical chest pain. FINDINGS: An AP, portable, upright chest radiograph is compared to study dated 02/06/2020. The examina tion is degraded by portable technique and apical lordotic positioning. The the heart is enlarged. Th e pulmonary vasculature is noncongested. Chronic interstitial thickening is similar to previous. Ther e is mild bibasilar atelectasis. The lungs and pleural spaces are otherwise clear. No pneumothorax is seen. The skeletal structures are osteopenic. The bony thorax is grossly intact. Postoperative campos e is noted in the right shoulder. IMPRESSION: Cardiomegaly with no active disease in the chest. ACT 112: Negative or not required by law. Electronically signed by: Rory Dc M.D. 06/06/2023 11:00 PM
[2023-06-06] MEDS ORDERED: ONDANSETRON INJ 2 MG/ML 2 ML VIAL IV PRN (23:52)
[2023-06-06] MEDS ORDERED: ALBUTEROL 0.083% NEBU SOLN 3 ML VIAL INH PRN (23:52)
[2023-06-06] MEDS ORDERED: [UNRECOGNIZED DRUG - REMARK] INTNAS PRN (23:52)
[2023-06-06] MEDS ORDERED: ALBUTEROL HFA 8 GM INHALER INH PRN (23:52)
[2023-06-07] MEDS ORDERED: cloNIDine HCL 0.3 MG/24 HR TRANSDERM SYS TD SCH (00:30)
[2023-06-07] MEDS ORDERED: LOSARTAN POTASSIUM 50 MG TAB PO ONE (00:45)
[2023-06-07] MEDS ORDERED: MONTELUKAST SODIUM 10 MG TABLET PO ONE (00:45)
[2023-06-07] MEDS ORDERED: FLUoxetine HCL 20 MG CAP PO ONE (00:45)
[2023-06-07] MEDS ORDERED: METOPROLOL SUCC 50MG EXT REL TAB PO ONE (00:45)
[2023-06-07] MEDS: ACETAMINOPHEN 500 MG TAB PO PRN ×3 (01:20→23:13)
--- NOTE | 2023-06-07 01:53 | CT Scan Report ---
Exam(s): CTA CHEST IV Amt: 118 ml opti 320 EXAM: CT Angiography Chest With Intravenous Contrast CLINICAL HISTORY: Reason for exam: PE. TECHNIQUE: Axial computed tomographic angiography images of the chest with intravenous contrast. CTDI is 28.14 mGy and DLP is 946.85 mGy-cm. Automated exposure control was utilized for the study. A dose lowering technique was utilized adhering to the principles of ALARA. MIP reconstructed images were created and reviewed. COMPARISON: No relevant prior studies available. FINDINGS: Pulmonary arteries: Unremarkable. No CT evidence of pulmonary embolism. Aorta: No acute findings. No thoracic aortic aneurysm. Lungs: Unremarkable. No mass. No consolidation. Pleural space: Unremarkable. No significant effusion. No pneumothorax. Heart: Unremarkable. No cardiomegaly. No significant pericardial effusion. No evidence of RV dysfunction. Bones/joints: No acute fracture. No dislocation. Soft tissues: Unremarkable. Lymph nodes: Unremarkable. No enlarged lymph nodes. Adrenals: 3.5 cm left adrenal nodule and 2.2 cm right adrenal nodules consistent with adenomas.. Stomach and bowel: Patient is status post gastric sleeve surgery. IMPRESSION: No CT evidence of pulmonary embolism. Electronically signed by: Cem Oreilly M.D. 06/07/23 01:52 AM
[2023-06-07 04:46] LABS: Basophils # (auto) 0.03 K/uL (0.00-0.20); Basophils % (auto) 0.4 %; Eosinophils # (auto) 0.22 K/uL (0.00-0.50); Eosinophils % (auto) 2.7 %; Hematocrit (blood only) 38.5 % (37.0-47.0); Hemoglobin 12.9 g/dl (12.0-16.0); Immature Granulocytes # (auto) 0.03 K/uL (0.01-0.20); Immature Granulocytes % (auto) 0.4 %; Lymphocytes # (auto) 2.15 K/uL (1.20-3.40); Lymphocytes % (auto) 26.2 %; Mean Corpuscular Hemoglobin 29.7 pg (25.0-34.0); Mean Corpuscular Hgb Conc 33.5 g/dL (32.0-36.0); Mean Corpuscular Volume 88.7 fL (80.0-100.0); Mean Platelet Volume 10.4 fL (9.4-12.4); Monocytes # (auto) 0.81 K/uL (0.11-0.59); Monocytes % (auto) 9.9 %; Neutrophils # (auto) 4.98 K/uL (1.40-6.50); Neutrophils % (auto) 60.4 %; Platelet Count 227 K/uL (130-400); RDW Coefficient of Variation 13.7 % (11.5-14.5); RDW Standard Deviation 44.5 fL (36.4-46.3); Red Blood Count 4.34 M/uL (4.20-5.40); White Blood Count 8.22 K/ul (4.8-10.8)
[2023-06-07 04:58] LABS: Albumin Level 3.9 gm/dl (3.4-5.0); BUN Creatinine Ratio 21.9 (10-20); Calcium 8.8 mg/dl (8.6-10.3); Creatinine Clr Calc Pharmacy 111.9 ml/min; Est GFR (African American) 105.2 ml/min; Est GFR (Non-African American) 90.8 ml/min; Magnesium 1.9 mg/dl (1.7-2.4); Phosphorus 3.7 mg/dl (2.5-4.9); Potassium 4.2 mmol/L (3.5-5.1)
[2023-06-07] MEDS: POTASSIUM CITRATE 10 MEQ TAB PO SCH (08:44)
[2023-06-07] MEDS: ASPIRIN 81 MG ECTAB PO SCH (08:44)
[2023-06-07] MEDS: CHECK CLONIDINE PATCH PLACEMENT SCH ×2 (08:47→15:09)
[2023-06-07] MEDS ORDERED: LISDEXAMFETAMINE 40 MG PO SCH (09:00)
[2023-06-07] MEDS ORDERED: INFLUENZA VIRUS QUADRIVALENT VACCINE (IIV4) 0.5 ML SYR IM ONE (09:00)
--- NOTE | 2023-06-07 09:02 | Cardiology Consultation ---
Date of Consultation June 07, 2023 Assessment & Plan (1) Atrial fibrillation with rapid ventricular response: (2) Mitral regurgitation: (3) Abnormal ventricular wall motion: Plan 1. Atrial fibrillation: This is her first diagnosis of atrial fibrillation although by history she has had paroxysmal palpitations consistent with this for 6 months or a year, she does not recall having it before that. She had similar symptoms infrequently over the last 6 months to year that lasted a number of hours. She does not have hemodynamic symptoms but the rate is quite fast. We should try to go up on her beta-blockade, although we will have to watch her lung disease. Often people tolerate higher doses of metoprolol however. I would do that here in the hospital and I would give it in the morning that evening that is more effective during the day. She should be on an antico agulant and I will start Eliquis. 2. Mitral regurgitation: She does have moderate mitral regurgitation which is probably the heart murmur she has had in the past. There is no indication to perform any further evaluation at this time although in the future we will need to follow this finding, in addition it may relate to her atrial fibrillation. 3. Septal wall motion abnormality: She is reported to have a septal wall motion abnormality consistent with a conduction abnormality on echocardiography, however her conduction pattern is normal on electrocardiography although she does have a leftward axis although not to the extent that we would normally consider this to be left anterior fascicular block. Perhaps however she does have a septal conduction abnormality. I would not pursue further evaluation of this at this time. History of Present Illness Reason for Consultation: Atrial fibrillation Attending Physician: Yong Espinal MD History of Present Illness This is a 57-year-old woman who has a history of hypertension, dyslipidemia, obesity with metabolic syndrome as well as palpitations. Although she has had no diagnosis of atrial fibrillation in the past her arrhythmia has not been evaluated but she recalls having episodes of rapid heart rate going back 6 months to a year. She also has a diagnosis of a heart murmur and is scheduled for an echocardiogram. Her presenting electrocardiogram June 06, 2023 at 1925 showed atrial fibrillation with a rapid heart rate of 142 bpm. With initial treatment the rhythm quickly converted to sinus rhythm with premature atrial beats, by June 06, 2023 at 2004 she was in sinus rhythm. She was aware of this change in rhythm based on her symptoms. Laboratory studies included a TSH which was normal, a high-sensitivity troponin which was also normal. Her electrocardiogram following conversion was normal other than the premature atrial beats. Allergies Allergy/AdvReac Type Severity Reaction Status Date / Time mold Allergy Unknown UPPER Verified 06/06/23 20:38 RESPIRATORY ISSUES, FLARE UP OF ASTHMA house dust Allergy upper Verified 06/06/23 20:38 respiratory issues, flare-up asthma Home Medications Medication Instructions Recorded Confirmed Type fluoxetine 40 mg capsule (Prozac) 40 mg PO HS 02/06/18 06/06/23 History multivitamin,ca-ciqf-ibbuiluw 1 tab PO HS 12/01/18 06/06/23 History (Complete Multivitamin tablet) cholecalciferol (vitamin D3) 50 2,000 units PO PM 01/28/19 06/06/23 History mcg (2,000 unit) capsule lisdexamfetamine 40 mg capsule 40 mg PO QAM 09/28/19 06/06/23 History (Vyvanse) azelastine 137 mcg-fluticasone 50 1 - 2 spray intranasal DAILY PRN 02/15/21 06/06/23 Rx mcg/spray nasal spray (Dymista) ALLERGIES #23 grams ibuprofen 200 mg tablet (Advil) 600 mg (3 x 200 mg) PO QID PRN 02/22/21 06/06/23 Rx fever or pain #30 tabs acetaminophen 500 mg tablet 1,000 mg PO Q8H PRN pain/fever 03/22/21 06/06/23 History (Tylenol Extra Strength) albuterol sulfate 2.5 mg/3 mL 2.5 mg (3 mL) inhalation Q4 PRN 10/11/21 06/06/23 Rx (0.083 %) solution for nebulization Shortness Of Breath #540 mL losartan 100 mg tablet 100 mg PO PM #90 tabs 07/25/22 06/06/23 Rx albuterol sulfate 90 mcg/actuation 2 puff inhalation QID PRN asthma 09/27/22 06/06/23 Rx aerosol inhaler (Ventolin HFA) #18 grams montelukast 10 mg tablet 10 mg PO QPM #90 tabs 09/27/22 06/06/23 Rx (Singulair) potassium citrate 10 mEq (1,080 10 meq PO DAILY 05/24/23 01/12/24 History mg) tablet,extended release metoprolol succinate 25 mg 50 mg (2 x 25 mg) PO PM #180 tabs 02/24/23 06/06/23 Rx tablet,extended release 24 hr atorvastatin 10 mg tablet (Lipitor) 10 mg PO HS Dyslipidemia #90 tabs 05/14/23 06/06/23 Rx clonidine 0.3 mg/24 hr weekly 1 patch topical WK #12 ea 05/30/23 06/06/23 Rx transdermal patch Patient History Medical History ADHD Fatty liver Asthma rare use of PRN inh Heart murmur last echo > 10 years ago [place]; no rn ortho History of kidney stones History of COVID-19 02/05/2021; cough, runny nose, sob, loss of taste/smell; reports cough/sob, runny nose resolved. still w/o taste/smell History of anesthesia reaction during one of cystoscopies "bit down hard and broke part of my tooth off" IBS (irritable bowel syndrome) Depression Hypertension Hyperlipidemia Incidental adrenal cortical adenoma being monitored by Dr. Moy Surgical History History of sleeve gastrectomy History of hysterectomy History of carpal tunnel surgery of right wrist History of hand surgery right ligament repair History of repair of left rotator cuff History of arthroscopy of left knee History of lithotripsy History of cystoscopy History of tooth extraction History of endoscopic sinus surgery Status post myringotomy with tube placement of both ears H/O tubal ligation Family History Grandmother (Maternal) Colon cancer FH: deafness or hearing loss Breast cancer Uterine cancer Mother Asthma Hypertension History of coronary artery bypass surgery Uterine cancer Pancreatic cancer Son Asthma Grandfather (Maternal) FH: deafness or hearing loss Prostate cancer Aunt Cancer Other No family history of adverse response to anesthesia Sinusitis Denies family history of Ovarian cancer Cardiac disorder Allergies Myocardial infarction Adverse anesthesia outcome Bleeding disorder Stroke Social History Smoking Status: Never smoker Second Hand Exposure: No; Do You Dip or Chew Tobacco: No; Hx Alcohol Use: Yes Alcohol type: wine Hx Substance Use: No Preferred Language: German Communication Ability: Effective Visual Impairment: No Limitations Hearing Ability: Normal Parts Technician Required: No Beliefs That Will Affect Care: None marital status: Current Living Situation: Spouse current occupational status: employed 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 Physical Exam Physical Exam: Constitutional: Alert, cooperative and in no distress. She is obese. HEENT: Unremarkable Neck: No jugular venous distention, carotid pulses are normal and equal bilaterally without bruits. Pulmonary: Clear to auscultation bilaterally. Cardiac: Regular rhythm with a grade 2/6 holosystolic murmur at the apex, no gallop or rub. Abdomen: Soft, nontender with normal bowel sounds. Extremities: No edema. Distal pulses intact. Neurologic: No focal findings. Skin: No rash, ecchymoses or petechiae. Results & Data Vital Signs (Past 12 Hours) Vital Signs Pulse Pulse Resp BP BP Pulse Ox Pulse Ox 06/07/23 07:37 63 06/07/23 06:00 66 17 146/80 H 96 06/07/23 04:00 65 18 158/92 H 96 06/07/23 03:00 65 18 94 06/07/23 02:00 69 17 147/86 H 95 06/07/23 01:21 70 17 98 06/07/23 01:11 83 22 171/97 H 99 06/06/23 23:54 99 06/06/23 23:54 74 20 192/110 H 98 06/06/23 23:38 75 06/06/23 22:57 74 14 163/85 H 97 06/06/23 21:00 148/87 H 99 O2 Del Method O2 Del Method 06/07/23 07:37 06/07/23 06:00 Room Air 06/07/23 04:00 Room Air 06/07/23 03:00 06/07/23 02:00 Room Air 06/07/23 01:21 Room Air 06/07/23 01:11 Room Air 06/06/23 23:54 Room Air 06/06/23 23:54 Room Air 06/06/23 23:38 06/06/23 22:57 Room Air 06/06/23 21:00 Laboratory Results Cardiac Enzymes 06/06/23 Range/Units 19:43 AST 27 (13-39) U/L Troponin I High Sens 8.6 (0-14) pg/ml Coagulation 06/06/23 Range/Units 19:43 PT 9.9 (9.0-12.0) Seconds APTT 28 (21-31) Seconds CBC 06/06/23 06/07/23 Range/Units 19:43 03:56 WBC 8.42 8.22 (4.8-10.8) K/ul RBC 5.13 4.34 (4.20-5.40) M/uL Hgb 15.1 12.9 (12.0-16.0) g/dl Hct 45.2 38.5 (37.0-47.0) % Plt Count 147 227 D (130-400) K/uL Neut # (Auto) 5.21 4.98 (1.40-6.50) K/uL Lymph # (Auto) 2.23 2.15 (1.20-3.40) K/uL [place] # (Auto) 0.74 H 0.81 H (0.11-0.59) K/uL Eos # (Auto) 0.18 0.22 (0.00-0.50) K/uL Baso # (Auto) 0.03 0.03 (0.00-0.20) K/uL Comprehensive Metabolic Panel 06/06/23 06/07/23 Range/Units 19:43 03:56 Sodium 138 136 (136-145) mmol/L Potassium 3.6 4.2 (3.5-5.1) mmol/L Chloride 103 106 (98-107) mmol/L Carbon Dioxide 26 23 (21-32) mmol/L BUN 18 16 (6-23) mg/dl Creatinine 0.90 0.73 (0.6-1.2) mg/dl Glucose 95 96 (70-99(Fasting)) mg/dl Calcium 10.0 8.8 (8.6-10.3) mg/dl AST 27 (13-39) U/L ALT 29 (7-52) U/L Alkaline Phosphatase 139 H (34-104) U/L Total Protein 8.2 (6.0-8.3) gm/dl Albumin 4.6 3.9 (3.4-5.0) gm/dl Intake and Output 06/06/23 06/07/23 06/07/23 22:59 06:59 14:59 Intake Total 1000 / 1000 1000 / 1000 Balance 1000 / 1000 1000 / 1000 Intake: IV 1000 / 1000 1000 / 1000 Nss + 20Meq KCl 20 meq In 1,000 1000 / 1000 ml @ 100 mls/hr IV .Q10H STA Rx#:[id number] Sodium Chloride 0.9% 1,000 ml @ 1000 / 1000 999 mls/hr IV .Q1H1M ONE Rx#: [id number] Other: Weight 125.5 kg Weight Measurement Method Chair Scale Diagnostic Findings Telemetry: Atrial fibrillation with rapid heart rate until conversion to sinus rhythm last evening. Her echocardiogram was technically difficult, she does have normal overall left ventricular systolic function with an ejection fraction of 60 to 65% with a somewhat abnormal septal motion. She does have moderate mitral regurgitation. PG Care Time/CCT Total # of Minutes Spent Total Time Spent with Patient: Total time spent is greater than 50% in coordination of care (as documented) at patient's floor/unit and/or counseling patient: Coding Level of Care Code 40805 IN/OBS CONSULT LVL 4,60M Diagnoses Atrial fibrillation with rapid ventricular response I48.91 Mitral valve insufficiency, unspecified etiology I34.0 Cardiac valve disease etiology: etiology unspecified Abnormal ventricular wall motion R93.89 (2) Mitral regurgitation Cardiac valve disease etiology: etiology unspecified Qualified Code(s): I34.0 - Nonrheumatic mitral (valve) insufficiency
[2023-06-07] MEDS: METOPROLOL SUCC 50MG EXT REL TAB PO SCH (10:00)
[2023-06-07] MEDS: APIXABAN 5 MG TABLET PO SCH ×2 (10:00→20:57)
--- NOTE | 2023-06-07 12:50 | Hospitalist Progress Note ---
Date of Service June 07, 2023 Assessment & Plan (1) Atrial fibrillation with rapid ventricular response: Plan: Telemetry. She has converted back to normal sinus rhythm. Cardiology consultation appreciated. Metoprolol dosage has been increased. She is now on Eliquis. Thyroid profile is unremarkable. Cardiac echo report is pending. (2) Restrictive lung disease secondary to obesity: Plan: Supportive care. Significant weight loss recommended (3) Benign hypertension: Plan: Continue losartan and metoprolol. Metoprolol dosage has been uptitrated (4) Hypercholesterolemia: Plan: Stable. Continue statin therapy Plan Hopeful discharge to home tomorrow, June 08 Admission and Anticipated Discharge Date Admission Date: June 06, 2023 Subjective Alert and oriented. No complaints. Cardiology consultation appreciated. She has converted back to normal sinus rhythm. Metoprolol dosage has been uptitrated. Eliquis has been added. Free T3 and free T4 levels are normal. Cardiac echo is pending. Probably home tomorrowJune 08 Review of Systems 2 Review of Systems: Constitutional-no fever or chills ENT-no blurred vision, no double vision, no epistaxis, no sore throat Respiratory-no cough, no wheezing, no shortness of breath Cardiac-no palpitations, no chest pain, no syncope GI-no nausea, vomiting, diarrhea, melena, hematochezia -no urinary retention, no urinary incontinence, no dysuria, no hematuria Musculoskeletal-no joint pain, no muscle tenderness Skin-no bruising, no rashes, no pruritus Neuro-no isolated weakness, no paresthesia, no weakness Psych-no depression, no anxiety Physical Exam 2 Physical Exam: General-alert and oriented x3, no fevers, no chills. Morbidly obese HEENT-head atraumatic and normocephalic, pupils equal and reactive to light, extraocular muscles intact Neck-no lymphadenopathy or thyromegaly, trachea midline Chest-clear to auscultation. No rales, wheezing or rhonchi Cardiac-regular rate and rhythm, normal S1 and S2 Abdomen-normal bowel sounds, nontender, no hepatosplenomegaly Extremities-no cyanosis, clubbing, or edema Neuro-cranial nerves II through XII intact, motor and sensory function within normal limits, strength symmetrical, no focal deficits Psych-normal affect, normal mood Results & Data Results & Data Vital Signs (Past 12 Hours) Vital Signs Pulse Pulse Resp BP BP Pulse Ox O2 Del Method 06/07/23 08:01 68 17 158/106 H 97 Room Air 06/07/23 07:37 63 06/07/23 07:30 64 20 97 Room Air 06/07/23 06:00 66 17 146/80 H 96 Room Air 06/07/23 04:00 65 18 158/92 H 96 Room Air 06/07/23 03:00 65 18 94 06/07/23 02:00 69 17 147/86 H 95 Room Air 06/07/23 01:21 70 17 98 Room Air 06/07/23 01:11 83 22 171/97 H 99 Room Air Laboratory Results 06/07/23 03:56 06/07/23 03:56 PG Care Time/CCT Total # of Minutes Spent Total Time Spent with Patient: Total time spent is greater than 50% in coordination of care (as documented) at patient's floor/unit and/or counseling patient: Coding Level of Care Code 13564 SUB INP/OBS CARE 3/50MIN Diagnoses Atrial fibrillation with rapid ventricular response I48.91 Restrictive lung disease secondary to obesity J98.4; E66.9 Benign hypertension I10 Hypercholesterolemia E78.00
--- NOTE | 2023-06-07 14:25 | XCELERA ---
[id number] \\[id number]
[2023-06-07] MEDS ORDERED: LOSARTAN POTASSIUM 50 MG TAB PO SCH (21:00)
[2023-06-07] MEDS ORDERED: MONTELUKAST SODIUM 10 MG TABLET PO SCH (21:00)
[2023-06-07] MEDS ORDERED: ATORVASTATIN 10 MG TAB PO SCH (21:00)
[2023-06-07] MEDS ORDERED: METOPROLOL SUCC 50MG EXT REL TAB PO SCH (21:00)
[2023-06-07] MEDS ORDERED: FLUoxetine HCL 20 MG CAP PO SCH (21:00)
[2023-06-07] MEDS ORDERED: CHOLECALCIFEROL 1,000 UNITS 25 MCG TAB PO SCH (21:00)
[2023-06-07] MEDS ORDERED: MULTIVITAMIN TX IRON MINERALS PO SCH (21:00)
[2023-06-08 04:15] LABS: Basophils # (auto) 0.04 K/uL (0.00-0.20); Basophils % (auto) 0.7 %; Eosinophils # (auto) 0.21 K/uL (0.00-0.50); Eosinophils % (auto) 3.4 %; Hematocrit (blood only) 40.1 % (37.0-47.0); Hemoglobin 13.5 g/dl (12.0-16.0); Immature Granulocytes # (auto) 0.01 K/uL (0.01-0.20); Immature Granulocytes % (auto) 0.2 %; Lymphocytes # (auto) 1.72 K/uL (1.20-3.40); Lymphocytes % (auto) 28.2 %; Mean Corpuscular Hemoglobin 29.7 pg (25.0-34.0); Mean Corpuscular Hgb Conc 33.7 g/dL (32.0-36.0); Mean Corpuscular Volume 88.3 fL (80.0-100.0); Mean Platelet Volume 10.1 fL (9.4-12.4); Monocytes # (auto) 0.72 K/uL (0.11-0.59); Monocytes % (auto) 11.8 %; Neutrophils # (auto) 3.41 K/uL (1.40-6.50); Neutrophils % (auto) 55.7 %; Platelet Count 206 K/uL (130-400); RDW Coefficient of Variation 13.6 % (11.5-14.5); RDW Standard Deviation 44.2 fL (36.4-46.3); Red Blood Count 4.54 M/uL (4.20-5.40); White Blood Count 6.11 K/ul (4.8-10.8)
[2023-06-08 04:24] LABS: BUN Creatinine Ratio 17.1 (10-20); Calcium 9.4 mg/dl (8.6-10.3); Creatinine Clr Calc Pharmacy 99.6 ml/min; Est GFR (African American) 91.4 ml/min; Est GFR (Non-African American) 78.9 ml/min; Potassium 3.9 mmol/L (3.5-5.1)
[2023-06-08] MEDS ORDERED: amLODIPine BESYLATE 5 MG TAB PO SCH (09:00)
[2023-06-08] MEDS ORDERED: hydrALAZINE 10 MG TAB PO SCH (09:00)
[2023-06-08] MEDS: APIXABAN 5 MG TABLET PO SCH (09:18)
[2023-06-08] MEDS: ASPIRIN 81 MG ECTAB PO SCH (09:18)
[2023-06-08] MEDS: POTASSIUM CITRATE 10 MEQ TAB PO SCH (09:18)
[2023-06-08] MEDS: METOPROLOL SUCC 50MG EXT REL TAB PO SCH (09:18)
[2023-06-08] MEDS: ACETAMINOPHEN 500 MG TAB PO PRN (09:41)
[2023-06-08] MEDS: CHECK CLONIDINE PATCH PLACEMENT SCH (09:42)
--- NOTE | 2023-06-08 09:50 | Cardiology Progress Note ---
Date of Service June 08, 2023 Assessment & Plan (1) Atrial fibrillation with rapid ventricular response: (2) Mitral regurgitation: (3) Abnormal ventricular wall motion: Plan 1. Atrial fibrillation: This is her first diagnosis of atrial fibrillation although by history she has had paroxysmal palpitations consistent with this for 6 months or a year, she does not recall having it before that. She had similar symptoms infrequently over the last 6 months to year that lasted a number of hours. She does not have hemodynamic symptoms but the rate has been quite fast. Hopefully on increased metoprolol the rate will be better controlled. I discussed future considerations with her, if she has episodes and feels well she does not need to come into the hospital, but if she feels poorly she should come in. With better rate control and knowing what the symptoms are due to she may be able to stay home and have the episodes terminate spontaneously. On anticoagulation this is safe. I did discuss with her the natural history of atrial fibrillation which is that it gets worse but is hard to predict the progression. Mitral regurgitation might contribute to the atrial fibrillation but there is nothing we can do about that. 2. Mitral regurgitation: She does have moderate mitral regurgitation which is probably the heart murmur she has had in the past. There is no indication to perform any further evaluation at this time although in the future we will need to follow this finding, in addition it may relate to her atrial fibrillation. Control of blood pressure may help. 3. Septal wall motion abnormality: She is reported to have a septal wall motion abnormality consistent with a conduction abnormality on echocardiography, however her conduction pattern is normal on electrocardiography although she does have a leftward axis although not to the extent that we would normally consider this to be left anterior fascicular block. Perhaps however she does have a conduction abnormality. I would not pursue further evaluation of this at this time. 4. Hypertension: Her blood pressure remains somewhat elevated, part of that may be the stress of the situation. I am hopeful that her current increase medications will help with the blood pressure but if not we need to increase her medications but that would be an outpatient. I did recommend that she take her blood pressure several days per week morning and afternoon and create a log which I can review when she comes into the office. I would like her to come back in for follow-up in about 1 month to see how she is doing on the Eliquis and increase metoprolol and I can follow her blood pressure as well. Admission and Anticipated Discharge Date Admission Date: June 06, 2023 Subjective She is feeling well today, no palpitations, tolerating anticoagulation and increased metoprolol well. Physical Exam Physical Exam: Constitutional: Alert, cooperative and in no distress. She is obese. HEENT: Unremarkable Neck: No jugular venous distention, carotid pulses are normal and equal bilaterally without bruits. Pulmonary: Clear to auscultation bilaterally. Cardiac: Regular rhythm with a grade 2/6 holosystolic murmur at the apex, no gallop or rub. Abdomen: Soft, nontender with normal bowel sounds. Extremities: No edema. Distal pulses intact. Neurologic: No focal findings. Skin: No rash, ecchymoses or petechiae. Results & Data Vital Signs (Past 12 Hours) Vital Signs Pulse Pulse Resp BP Pulse Ox 06/08/23 09:17 67 16 151/79 H 06/08/23 07:38 53 L 06/07/23 22:30 58 L 15 95 06/07/23 22:00 59 L 14 99 Laboratory Results CBC 06/08/23 Range/Units 03:30 WBC 6.11 (4.8-10.8) K/ul RBC 4.54 (4.20-5.40) M/uL Hgb 13.5 (12.0-16.0) g/dl Hct 40.1 (37.0-47.0) % Plt Count 206 (130-400) K/uL Neut # (Auto) 3.41 (1.40-6.50) K/uL Lymph # (Auto) 1.72 (1.20-3.40) K/uL [place] # (Auto) 0.72 H (0.11-0.59) K/uL Eos # (Auto) 0.21 (0.00-0.50) K/uL Baso # (Auto) 0.04 (0.00-0.20) K/uL Comprehensive Metabolic Panel 06/08/23 Range/Units 03:30 Sodium 136 (136-145) mmol/L Potassium 3.9 (3.5-5.1) mmol/L Chloride 104 (98-107) mmol/L Carbon Dioxide 24 (21-32) mmol/L BUN 14 (6-23) mg/dl Creatinine 0.82 (0.6-1.2) mg/dl Glucose 90 (70-99(Fasting)) mg/dl Calcium 9.4 (8.6-10.3) mg/dl Intake and Output 06/07/23 06/08/23 06/08/23 22:59 06:59 14:59 Intake Total 150 / 1150 Balance 150 / 1150 Intake: Oral 150 / 150 PG Care Time/CCT Total # of Minutes Spent Total Time Spent with Patient: Total time spent is greater than 50% in coordination of care (as documented) at patient's floor/unit and/or counseling patient: Coding Level of Care Code 04397 SUB INP/OBS CARE 3/50MIN Diagnoses Atrial fibrillation with rapid ventricular response I48.91 Mitral valve insufficiency, unspecified etiology I34.0 Cardiac valve disease etiology: etiology unspecified Abnormal ventricular wall motion R93.89 (2) Mitral regurgitation Cardiac valve disease etiology: etiology unspecified Qualified Code(s): I34.0 - Nonrheumatic mitral (valve) insufficiency
--- NOTE | 2023-06-08 11:27 | Discharge Summary ---
Date of Service June 08, 2023 Admission HPI Per Admitting Provider The patient is a 57-year-old female with a past medical history including cystinuria, vitamin D deficiency, SNHL, restrictive lung disease, hypertension, hypercholesterolemia, dysmetabolic syndrome X, depression, ADHD without hyperactivity, mild persistent asthma, morbid obesity, and history of sleeve gastrectomy. The patient reports that she was out shopping today, when she developed acute onset of palpitations, rapid heart rate, and presented to the ED for assessment. Upon arrival to the ED, she was found to be in new onset atrial fibrillation with RVR. She received a dose of diltiazem 15 mg IV, and 1 L n ormal saline, and had improvement in heart rate and conversion to normal sinus rhythm in the 70s very quickly. Principal Diagnosis New onset atrial fibrillation with rapid ventricular rate, uncontrolled hypertension Discharge Exam General-alert and oriented x3, no fevers, no chills. Morbidly obese HEENT-head atraumatic and normocephalic, pupils equal and reactive to light, extraocular muscles intact Neck-no lymphadenopathy or thyromegaly, trachea midline Chest-clear to auscultation. No rales, wheezing or rhonchi Cardiac-regular rate and rhythm, normal S1 and S2 Abdomen-normal bowel sounds, nontender, no hepatosplenomegaly Extremities-no cyanosis, clubbing, or edema Neuro-cranial nerves II through XII intact, motor and sensory function within normal limits, strength symmetrical, no focal deficits Psych-normal affect, normal mood Discharge Data Allergies Allergy/AdvReac Type Severity Reaction Status Date / Time mold Allergy Unknown UPPER Verified 06/06/23 20:38 RESPIRATORY ISSUES, FLARE UP OF ASTHMA house dust Allergy upper Verified 06/06/23 20:38 respiratory issues, flare-up asthma Consultations 06/06/23 21:39 ED Decision to Admit Stat 06/07/23 00:32 Consult Cardiology Routine Ordered Studies 06/06/23 22:13 CT angio chest PE protocol Stat Hospital Course (1) Atrial fibrillation with rapid ventricular response: Telemetry. She converted back to normal sinus rhythm and remains in normal sinus rhythm. Cardiology consultation appreciated. Metoprolol dosage has been increased. She is now on Eliquis. Thyroid profile is unremarkable. Cardiac echo report is pending. (2) Restrictive lung disease secondary to obesity: Supportive care. Significant weight loss recommended (3) Benign hypertension: Continue losartan and metoprolol. Metoprolol dosage has been uptitrated. Amlodipine added for better blood pressure control (4) Hypercholesterolemia: Stable. Continue statin therapy Plan Will home today, June 08 Total Time Total Time Spent Total Time Spent (In Minutes): 45 minutes Discharge Plan Discharge Items Patient Disposition: Home - Self-Care Reason For Visit: NEW ONSET ATRIAL FIB WITH RVR Discharge Diagnosis: New onset atrial fibrillation with rapid ventricular rate, uncontrolled hypertension Activity: Resume your previous activity Non-emergency contact: Primary Care Provider Call non-emergency contact if: you have any medication questions Follow-up/Referrals: jT Rowe III, CRNP [Primary Care Provider] - Diet: Regular and Heart Healthy Addtl Attending Provider Instructions: Metoprolol dosage has been increased. Eliquis is new which is a blood thinner. Amlodipine is new for better blood pressure control Pending Studies at Discharge: No Stand-Alone Forms: My [employer], Smoking Cessation Medications and DC Order Prescriptions: New metoprolol succinate 50 mg Tablet Extended Release 24 Hr 100 mg PO QAM Qty: 30 0RF amlodipine [Norvasc] 5 mg Tablet 5 mg PO QAM Qty: 30 0RF Eliquis 5 mg Tablet 5 mg PO BID Qty: 60 0RF aspirin 81 mg Tablet,Delayed Release (Dr/Ec) 81 mg PO QAM Qty: 0 0RF Continued albuterol sulfate 2.5 mg /3 mL (0.083 %) solution for nebulization 2.5 mg INHALATION Q4 PRN (Reason: Shortness Of Breath) Qty: 540 1RF losartan 100 mg tablet 100 mg PO PM Qty: 90 3RF atorvastatin [Lipitor] 10 mg tablet 10 mg PO HS Qty: 90 3RF clonidine 0.3 mg/24 hr patch weekly 1 patch topical WK Qty: 12 3RF Rx Instructions: Vyvanse 40 mg capsule 40 mg PO QAM potassium citrate 10 mEq (1,080 mg) tablet extended release 10 meq PO DAILY Dymista 137-50 mcg/spray spray,non-aerosol 1 - 2 spray INTNAS DAILY PRN (Reason: ALLERGIES) Qty: 23 3RF Rx Instructions: 1-2 Sprays INTNAS DAILY; albuterol sulfate [Ventolin HFA] 90 mcg/actuation HFA aerosol inhaler 2 puff INHALATION QID PRN (Reason: asthma) Qty: 18 3RF montelukast [Singulair] 10 mg tablet 10 mg PO QPM Qty: 90 4RF cholecalciferol (vitamin D3) 2,000 unit capsule 2,000 units PO PM acetaminophen [Tylenol Extra Strength] 500 mg tablet 1,000 mg PO Q8H PRN (Reason: pain/fever) Complete Multivitamin tablet 1 tab PO HS fluoxetine [Prozac] 40 mg capsule 40 mg PO HS ibuprofen [Advil] 200 mg tablet 600 mg PO QID PRN (Reason: fever or pain) Qty: 30 0RF Discontinued metoprolol succinate 25 mg tablet extended release 24 hr 50 mg PO PM Qty: 180 3RF Discharge Orders: Discharge Order (Routine); Ordered 06/08/23 Ordered By: Yong Espinal Admission Data Admit Date/Time: 06/06/23 21:50 Attending Provider: Yong Espinal Admit Provider: Brody Ernanedz Primary Care Provider: Tj Rowe III Other Providers: Brody Ernandez; Salvatore Eugene Coding Level of Care Code 17917 INP/OBS DISCH >30 MIN Diagnoses Atrial fibrillation with rapid ventricular response I48.91 Restrictive lung disease secondary to obesity J98.4; E66.9 Benign hypertension I10 Hypercholesterolemia E78.00
--- NOTE | 2023-06-08 20:21 | Electrocardiogram Report ---
Test Reason : Blood Pressure : / mmHG Vent. Rate : 142 BPM Atrial Rate : 000 BPM P-R Int : 000 ms QRS Dur : 088 ms QT Int : 302 ms P-R-T Axes : 000 -21 114 degrees QTc Int : 464 ms Atrial fibrillation with rapid ventricular response Nonspecific ST and T wave abnormality Abnormal ECG When compared with ECG of 05-FEB-2021 13:12, Atrial fibrillation has replaced Sinus rhythm Vent. rate has increased BY [address] now depressed in Lateral leads Nonspecific T wave abnormality no longer evident in Inferior leads T wave inversion now evident in Lateral leads Confirmed by Salvatore Eugene ([id number]) on 06/08/2023 8:20:39 PM Also confirmed by Salvatore Eugene ([id number]) on 06/08/2023 8:21:55 PM Referred By: REFERRED SELF Confirmed By:Salvatore Eugene
--- NOTE | 2023-06-08 20:23 | Electrocardiogram Report ---
Test Reason : Blood Pressure : / mmHG Vent. Rate : 063 BPM Atrial Rate : 063 BPM P-R Int : 200 ms QRS Dur : 094 ms QT Int : 412 ms P-R-T Axes : 039 -02 038 degrees QTc Int : 421 ms Sinus rhythm with Premature atrial complexes in a pattern of bigeminy Otherwise normal ECG When compared with ECG of 06-JUN-2023 19:25, (unconfirmed) Sinus rhythm has replaced Atrial fibrillation Vent. rate has decreased BY [address] no longer depressed in Lateral leads T wave inversion no longer evident in Lateral leads Confirmed by Salvatore Eugene ([id number]) on 06/08/2023 8:23:06 PM Referred By: REFERRED SELF Confirmed By:Salvatore Eugene
--- NOTE | 2023-06-08 20:40 | Electrocardiogram Report ---
Test Reason : Blood Pressure : / mmHG Vent. Rate : 064 BPM Atrial Rate : 064 BPM P-R Int : 194 ms QRS Dur : 094 ms QT Int : 434 ms P-R-T Axes : 050 -02 012 degrees QTc Int : 447 ms Normal sinus rhythm with PACs Normal ECG When compared with ECG of 06-JUN-2023 20:04, (unconfirmed) No significant change Confirmed by Salvatore Eugene ([id number]) on 06/08/2023 8:40:43 PM Referred By: REFERRED SELF Confirmed By:Salvatore Eugene
== END 2023-06-08 13:19 | disposition home or self-care (01) | DRG 310 ==
LOC: ED 19:10 → SUATTDRO 21:50 → INTOOBSV 21:50 → EDINP 21:50

== ENCOUNTER 2024-08-23 17:16 | Observation (INO) ==
[2024-08-23 18:02] LABS: Basophils # (auto) 0.01 K/uL (0.00-0.20); Basophils % (auto) 0.1 %; Hematocrit (blood only) 40.7 % (37.0-47.0); Hemoglobin 13.5 g/dl (12.0-16.0); Immature Granulocytes # (auto) 0.07 K/uL (0.01-0.20); Immature Granulocytes % (auto) 0.6 %; Lymphocytes # (auto) 1.78 K/uL (1.20-3.40); Lymphocytes % (auto) 16.1 %; Mean Corpuscular Hgb Conc 33.2 g/dL (32.0-36.0); Mean Corpuscular Volume 87.5 fL (80.0-100.0); Mean Platelet Volume 8.9 fL (9.4-12.4); Monocytes # (auto) 0.58 K/uL (0.11-0.59); Monocytes % (auto) 5.3 %; Neutrophils % (auto) 77.9 %; Platelet Count 340 K/uL (130-400); RDW Coefficient of Variation 13.9 % (11.5-14.5); RDW Standard Deviation 44.5 fL (36.4-46.3); Red Blood Count 4.65 M/uL (4.20-5.40); White Blood Count 11.04 K/ul (4.8-10.8)
[2024-08-23 18:20] LABS: Alanine Aminotransferase 58 U/L (7-52); Albumin Globulin Ratio 1.1 (0.9-2); Albumin Level 4.2 gm/dl (3.4-5.0); Alkaline Phosphatase 120 U/L (34-104); Anion Gap 8 (3-11); Aspartate Aminotransferase 27 U/L (13-39); BUN Creatinine Ratio 30.3 (10-20); Bilirubin,Total 0.5 mg/dl (0.2-1.0); Blood Urea Nitrogen 27 mg/dl (6-23); Carbon Dioxide 28 mmol/L (21-32); Chloride 105 mmol/L (98-107); Creatinine Clr Calc Pharmacy 93.4 ml/min; Globulin 3.7 gm/dl (2.5-4.0); Glucose 109 mg/dl (70-99(Fasting)); Potassium 3.7 mmol/L (3.5-5.1); Sodium 141 mmol/L (136-145); Total Protein 7.9 gm/dl (6.0-8.3)
[2024-08-23 18:25] LABS: Troponin I High Sensitivity < 2.3 pg/ml (0-14)
[2024-08-23 18:33] LABS: INR 0.9 (0.9-1.1); Partial Thromboplastin Time 28 Seconds (21-31); Prothrombin Time 10.3 Seconds (9.0-12.0)
[2024-08-23] MEDS: FUROSEMIDE 40 MG/4 ML VIAL IV ONE (18:51)
--- NOTE | 2024-08-23 18:53 | Emergency Department Note ---
ED Provider Note CHIEF COMPLAINT: Shortness of breath HISTORY OF PRESENT ILLNESS: This 58-year-old female patient with past medical history of atrial fibrillation on chronic anticoagulation, asthma, hypertension, morbid obesity, presents emergency department with complaints of shortness of breath. The patient was treated last week for pneumonia and chest x-ray indicated some mild CHF. Lasix was then initiated by her PCP. She states she felt better about 24 hours later but over the last 2 days has had an exacerbation of the shortness of breath. She does not like to lie flat. She has been coughing so much that she has been losing control of the urine periodically. patient denies fevers and chills, but does complain of a mild chest pressure. REVIEW OF SYSTEMS: A review of systems was performed with positives and pertinent negatives listed in the history of present illness. 10 systems were reviewed and are otherwise negative. ALLERGIES: see below MEDICATIONS: see below PMH: see below SOCIAL HISTORY: see below DDx: Congestive heart failure, asthma exacerbation, PHYSICAL EXAM: Vital signs reviewed. General: Generally well-appearing 58-year-old female, in no significant distress. HEENT: No scleral icterus, PERRLA, neck supple. moist mucous membranes. Cardiovascular: Regular rate and rhythm, no extra sounds. Pulmonary: Clear to auscultation bilaterally, normal work of breathing. Abdomen: Soft, obese,nontender, nondistended, positive bowel sounds. Musculoskeletal: Atraumatic, no peripheral edema. Neurologic: Patient awake alert and oriented x 3, speech is clear Skin: Warm, dry, no rash EMERGENCY DEPARTMENT COURSE/MDM: [] MONITORING: An order for cardiac monitoring was placed and the patient is noted to be in a NSR at 67 beats per minute. RADIOLOGY: chest x-ray to my interpretation reveals no focal lung consolidation or failure. EKG: To my interpretation reveals a normal sinus rhythm at 70 bpm, QTc of 419. Normal ST segments. No PVC, no PAC. DISPOSITION: Past Med/Surg History Problem List Morbid obesity with BMI of 50.0-59.9, adult Hypersomnia Hypertension Mitral regurgitation Anticoagulant long-term use Vitamin D deficiency (Chronic) SNHL (sensorineural hearing loss) (Chronic) Incidental adrenal cortical adenoma being monitored by Dr. Moy Benign hypertension (Chronic) Heart murmur (Chronic) Edema (Chronic) Depression (Chronic) Chronic sinusitis (Chronic) Allergic rhinitis (Chronic) Urinary frequency Asthma Allergic rhinitis with postnasal drip Hearing loss Medical History Morbid obesity Atrial fibrillation with rapid ventricular response COVID-19 Close exposure to 2019 novel coronavirus Cystine stones Nephrolithiasis Cystinuria Abnormal ventricular wall motion Asthma, mild persistent Attention deficit disorder without hyperactivity Dysmetabolic syndrome X Hypercholesterolemia Restrictive lung disease secondary to obesity ADHD Fatty liver Asthma rare use of PRN inh Heart murmur last echo > 10 years ago [place]; 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 still w/o taste/smell History of anesthesia reaction during one of cystoscopies "bit down hard and broke part of my tooth off" IBS (irritable bowel syndrome) Depression Hyperlipidemia Surgical History History of sleeve gastrectomy History of hysterectomy History of carpal tunnel surgery of right wrist History of hand surgery right ligament repair History of repair of left rotator cuff History of arthroscopy of left knee History of lithotripsy History of cystoscopy History of tooth extraction History of endoscopic sinus surgery Status post myringotomy with tube placement of both ears H/O tubal ligation Family History Grandmother (Maternal) Colon cancer FH: deafness or hearing loss Breast cancer Uterine cancer Mother Asthma Hypertension History of coronary artery bypass surgery Uterine cancer Pancreatic cancer Son Asthma Grandfather (Maternal) FH: deafness or hearing loss Prostate cancer Aunt Cancer Brother Cancer, Onset Age: 53 Other No family history of adverse response to anesthesia Sinusitis Denies family history of Ovarian cancer Cardiac disorder Allergies Myocardial infarction Adverse anesthesia outcome Bleeding disorder Stroke Social History Smoking Status: Never smoker Second Hand Exposure: No; Do You Dip or Chew Tobacco: No; Hx Alcohol Use: Yes Alcohol type: wine Hx Substance Use: No Preferred Language: Upper Sorbian Communication Ability: Effective Visual Impairment: No Limitations Hearing Ability: Normal O And M Supervisor Required: No Beliefs That Will Affect Care: None marital status: Current Living Situation: Spouse current occupational status: employed 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 How many Children do You have: 2 Feels Safe at Home: Yes Childhood Exposure to Second-Hand Smoke: Yes Diet: regular caffeine: Yes Dental Care, Regularly: Yes Physical Activity Frequency: Daily Seatbelt Use: always Sunscreen Use: Yes Assistive Devices: Glasses and Hearing Aid - Bilateral Allergies Allergies Allergy/AdvReac Type Severity Reaction Status Date / Time mold Allergy Unknown UPPER Verified 08/18/24 09:25 RESPIRATORY ISSUES, FLARE UP OF ASTHMA house dust Allergy upper Verified 08/18/24 09:25 respiratory issues, flare-up asthma Home Meds Home Medications Medication Instructions Recorded Confirmed fluoxetine 40 mg capsule (Prozac) 40 mg PO HS 02/06/18 08/18/24 multivitamin,[id number] 1 tab PO HS 12/01/18 08/18/24 (Complete Multivitamin tablet) cholecalciferol (vitamin D3) 50 2,000 units PO PM 01/28/19 08/18/24 mcg (2,000 unit) capsule acetaminophen 500 mg tablet 1,000 mg PO Q8H PRN pain/fever 03/22/21 08/18/24 (Tylenol Extra Strength) methylphenidate HCl [Concerta] PO DAILY 01/13/24 08/18/24 Previous Rx's Medication Instructions Recorded azelastine 137 mcg-fluticasone 50 1 - 2 spray intranasal DAILY PRN 02/15/21 mcg/spray nasal spray (Dymista) ALLERGIES #23 grams potassium citrate 10 mEq (1,080 10 meq PO DAILY #90 tabs 06/18/23 mg) tablet,extended release montelukast 10 mg tablet 10 mg PO QPM #90 tabs 10/01/23 (Singulair) amlodipine 5 mg tablet (Norvasc) 5 mg PO QAM #90 tabs 04/15/24 nebivolol 10 mg tablet (Bystolic) 10 mg PO DAILY #90 tabs 04/15/24 atorvastatin 10 mg tablet (Lipitor) 10 mg PO HS Dyslipidemia #90 tabs 05/31/24 clonidine 0.3 mg/24 hr weekly 1 patch topical WK #12 ea 06/04/24 transdermal patch albuterol sulfate 90 mcg/actuation See Rx Instructions inhalation 06/09/24 aerosol inhaler (Ventolin HFA) .COMPLEX PRN shortness of breath or wheezing #8.5 grams fluticasone 100 mcg-salmeterol 50 1 inh inhalation BID #60 ea 06/09/24 mcg/dose blistr powdr for inhalation (Wixela Inhub) albuterol sulfate 2.5 mg/3 mL 2.5 mg (3 mL) inhalation QID PRN 06/10/24 (0.083 %) solution for nebulization shortness of breath or wheezing #75 mL losartan 100 mg tablet 100 mg PO PM #30 tabs 06/30/24 apixaban 5 mg tablet (Eliquis) 5 mg PO BID #180 tabs 07/26/24 peg 3350-sod sulf,[id number] See Rx Instructions PO .COMPLEX #2 08/11/24 178.7-7.3-0.5-1.12-0.9 gram oral mL soln (Suflave) furosemide 20 mg tablet 20 mg PO DAILY #1 tab 08/18/24 levofloxacin 500 mg tablet 500 mg PO DAILY #10 tabs 08/18/24 prednisone 10 mg tablet See Rx Instructions PO DAILY #30 08/18/24 tabs Results & Data (ED) Vital Signs Vital Signs - 24 hr 08/23/24 17:22 08/23/24 18:40 Temperature 36.4 C L Temperature Source Temporal Artery Scan Pulse Rate 72 67 Pulse Rhythm Regular Pulse Strength Normal Respiratory Rate 20 Respiratory Effort / Characteristics Non-Labored Spontaneous Respiratory Depth Normal Blood Pressure 198/94 H Blood Pressure Mean 128 Blood Pressure Position Sitting Pulse Oximetry 94 Oxygen Delivery Method Room Air Sepsis Recent Fever Within 48 Hours No Sepsis New/Unexplained Change in Mental Status N/A Sepsis Action Taken by Nursing No Action Required Laboratory Data 08/23/24 17:41 08/23/24 17:41 Lab Results 08/23/24 Range/Units 17:41 WBC 11.04 H (4.8-10.8) K/ul RBC 4.65 (4.20-5.40) M/uL Hgb 13.5 (12.0-16.0) g/dl Hct 40.7 (37.0-47.0) % MCV 87.5 (80.0-100.0) fL MCH 29.0 (25.0-34.0) pg MCHC 33.2 (32.0-36.0) g/dL RDW Std Deviation 44.5 (36.4-46.3) fL RDW Coeff of Isabelle 13.9 (11.5-14.5) % Plt Count 340 (130-400) K/uL MPV 8.9 L (9.4-12.4) fL Immature Gran % (Auto) 0.6 % Neut % (Auto) 77.9 % Lymph % (Auto) 16.1 % Anderson % (Auto) 5.3 % Eos % (Auto) 0.0 % Baso % (Auto) 0.1 % Neut # (Auto) 8.60 H (1.40-6.50) K/uL Lymph # (Auto) 1.78 (1.20-3.40) K/uL Anderson # (Auto) 0.58 (0.11-0.59) K/uL Eos # (Auto) 0.00 (0.00-0.50) K/uL Baso # (Auto) 0.01 (0.00-0.20) K/uL Immature Gran # (Auto) 0.07 (0.01-0.20) K/uL PT 10.3 (9.0-12.0) Seconds INR 0.9 (0.9-1.1) APTT 28 (21-31) Seconds PTT Ratio 1.0 Sodium 141 (136-145) mmol/L Potassium 3.7 (3.5-5.1) mmol/L Chloride 105 (98-107) mmol/L Carbon Dioxide 28 (21-32) mmol/L Anion Gap 8 (3-11) BUN 27 H (6-23) mg/dl Creatinine 0.89 (0.6-1.2) mg/dl Est Cr Clr Drug Dosing 93.4 ml/min eGFR 74.64 BUN/Creatinine Ratio 30.3 H (10-20) Glucose 109 H (70-99(Fasting)) mg/dl Calcium 10.0 (8.6-10.3) mg/dl Total Bilirubin 0.5 (0.2-1.0) mg/dl AST 27 (13-39) U/L ALT 58 H (7-52) U/L Alkaline Phosphatase 120 H (34-104) U/L Troponin I High Sens < 2.3 (0-14) pg/ml B-Natriuretic Peptide 239 H (0-100) pg/ml Total Protein 7.9 (6.0-8.3) gm/dl Albumin 4.2 (3.4-5.0) gm/dl Globulin 3.7 (2.5-4.0) gm/dl Albumin/Globulin Ratio 1.1 (0.9-2) Discharge Plan Visit Data Chief Complaint: Shortness of Breath/Dyspnea Stated Complaint: SOB, CHEST TIGHT ED Provider: aNncy Peoples Forms Stand Alone Forms: [facility] Prescriptions Prescriptions: No Action Fluzone Triv (PF) 45 mcg (15 mcg x 3)/0.5 mL syringe 0.5 ml IM ONCE Qty: 0.5 0RF atorvastatin [Lipitor] 10 mg tablet 10 mg PO HS Qty: 90 3RF clonidine 0.3 mg/24 hr patch weekly 1 patch topical WK Qty: 12 3RF Rx Instructions: fluticasone propion-salmeterol [Wixela Inhub] 100-50 mcg/dose blister with device 1 inh inhalation BID Qty: 60 0RF albuterol sulfate [Ventolin HFA] 90 mcg/actuation HFA aerosol inhaler See Rx Instructions inhalation .COMPLEX PRN (Reason: shortness of breath or wheezing) Qty: 8.5 0RF Rx Instructions: 1-2 INH 4-6 PRN; albuterol sulfate 2.5 mg /3 mL (0.083 %) solution for nebulization 2.5 mg inhalation QID PRN (Reason: shortness of breath or wheezing) Qty: 75 1RF losartan 100 mg tablet 100 mg PO PM Qty: 30 0RF Eliquis 5 mg tablet 5 mg PO BID Qty: 180 3RF Suflave 178.7-7.3-0.5 gram recon soln See Rx Instructions PO .COMPLEX Qty: 2 0RF Rx Instructions: orally; orally; TAKE FIRST DOSE AT 6 PM AND SECOND DOSE 6 HOURS PRIOR TO PROCEDURE BIN: [id number] PCN: [id number] GROUP: [id number] montelukast [Singulair] 10 mg tablet 10 mg PO QPM Qty: 90 4RF Dymista 137-50 mcg/spray spray,non-aerosol 1 - 2 spray INTNAS DAILY PRN (Reason: ALLERGIES) Qty: 23 3RF Rx Instructions: 1-2 Sprays INTNAS DAILY; cholecalciferol (vitamin D3) 2,000 unit capsule 2,000 units PO PM acetaminophen [Tylenol Extra Strength] 500 mg tablet 1,000 mg PO Q8H PRN (Reason: pain/fever) potassium citrate 10 mEq (1,080 mg) tablet extended release 10 meq PO DAILY Qty: 90 3RF amlodipine [Norvasc] 5 mg tablet 5 mg PO QAM Qty: 90 3RF nebivolol [Bystolic] 10 mg tablet 10 mg PO DAILY Qty: 90 3RF prednisone 10 mg tablet See Rx Instructions PO DAILY Qty: 30 0RF Rx Instructions: 4 daily for 3 days, 3 daily for 3 days, 2 daily for three days, 1 daily for 3 days. PO DAILY; levofloxacin 500 mg tablet 500 mg PO DAILY Qty: 10 0RF furosemide 20 mg tablet 20 mg PO DAILY Qty: 1 0RF Rx Instructions: Take 1 tablet today only. methylphenidate HCl [Concerta] PO DAILY Complete Multivitamin tablet 1 tab PO HS fluoxetine [Prozac] 40 mg capsule 40 mg PO HS Referrals Referrals: Tj Rowe III, CRNP [Primary Care Provider] -
--- NOTE | 2024-08-23 19:18 | XRay Report ---
EXAM: XR chest 1V not portable CLINICAL HISTORY: Chest pain, nonspecific TECHNIQUE: An X-ray image of the chest is obtained in AP projection. 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 Haziness in the bilateral lower zones No evidence of pleural effusion. Heart and Mediastinum: The heart size is mildly enlarged with bilateral congested carole. Dilated unfolded aorta with calcific aortic arch. No mediastinal widening or masses. No hilar or mediastinal lymphadenopathy. 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 A screw applied at the right humeral head. Otherwise, the bony thorax appears intact without fractures or deformities. Soft Tissues: Soft tissues overlying the chest wall are unremarkable. IMPRESSION: 1. Findings represent mild infection/congestion; advise clinical and lab correlation. 2. 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 A screw applied at the right humeral head. Clinical correlation is needed. 3. No changes on interval. Electronically signed by Luis Felipe Jaramillo 08-23-2024 7:17 PM
[2024-08-23 20:57] LABS: Influenza A virus by PCR Negative (Neg); Influenza B virus by PCR Negative (Neg); RSV by PCR Negative (Neg); SARS CoV2 RNA(COVID-19) Ceph NEGATIVE (Negative)
--- NOTE | 2024-08-23 23:25 | History & Physical Report ---
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 Allergies Allergy/AdvReac Type Severity Reaction Status Date / Time mold Allergy Unknown UPPER Verified 08/18/24 09:25 RESPIRATORY ISSUES, FLARE UP OF ASTHMA house dust Allergy upper Verified 08/18/24 09:25 respiratory issues, flare-up asthma Home Medications Medication Instructions Recorded Confirmed Type fluoxetine 40 mg capsule (Prozac) 40 mg PO HS 02/06/18 08/23/24 History multivitamin,hd-[id number] 1 tab PO HS 12/01/18 08/23/24 History (Complete Multivitamin tablet) cholecalciferol (vitamin D3) 50 2,000 units PO PM 01/28/19 08/23/24 History mcg (2,000 unit) capsule azelastine 137 mcg-fluticasone 50 1 - 2 spray intranasal DAILY PRN 02/15/21 08/23/24 Rx mcg/spray nasal spray (Dymista) ALLERGIES #23 grams acetaminophen 500 mg tablet 1,000 mg PO Q8H PRN pain/fever 03/22/21 08/23/24 History (Tylenol Extra Strength) potassium citrate 10 mEq (1,080 10 meq PO DAILY #90 tabs 06/18/23 08/23/24 Rx mg) tablet,extended release montelukast 10 mg tablet 10 mg PO QPM #90 tabs 10/01/23 08/23/24 Rx (Singulair) methylphenidate HCl [Concerta] 36 mg PO DAILY 01/13/24 08/23/24 History amlodipine 5 mg tablet (Norvasc) 5 mg PO QAM #90 tabs 04/15/24 08/23/24 Rx nebivolol 10 mg tablet (Bystolic) 10 mg PO DAILY #90 tabs 04/15/24 08/23/24 Rx atorvastatin 10 mg tablet (Lipitor) 10 mg PO HS Dyslipidemia #90 tabs 05/31/24 08/23/24 Rx clonidine 0.3 mg/24 hr weekly 1 patch topical WK #12 ea 06/04/24 08/23/24 Rx transdermal patch fluticasone 100 mcg-salmeterol 50 1 inh inhalation BID #60 ea 06/09/24 08/23/24 Rx mcg/dose blistr powdr for inhalation (Wixela Inhub) albuterol sulfate 2.5 mg/3 mL 2.5 mg (3 mL) inhalation QID PRN 06/10/24 08/23/24 Rx (0.083 %) solution for nebulization shortness of breath or wheezing #75 mL losartan 100 mg tablet 100 mg PO PM #30 tabs 06/30/24 08/23/24 Rx apixaban 5 mg tablet (Eliquis) 5 mg PO BID #180 tabs 07/26/24 08/23/24 Rx furosemide 20 mg tablet 20 mg PO DAILY #1 tab 08/18/24 08/23/24 Rx levofloxacin 500 mg tablet 500 mg PO DAILY #10 tabs 08/18/24 08/23/24 Rx prednisone 10 mg tablet See Rx Instructions PO DAILY #30 08/18/24 08/23/24 Rx tabs albuterol sulfate 90 mcg/actuation 1 - 2 inh inhalation Q4H PRN 08/23/24 08/23/24 History aerosol inhaler (Ventolin HFA) shortness of breath or wheezing Past Med/Surg History Problem List Morbid obesity with BMI of 50.0-59.9, adult Hypersomnia Hypertension Mitral regurgitation Anticoagulant long-term use Vitamin D deficiency (Chronic) SNHL (sensorineural hearing loss) (Chronic) Incidental adrenal cortical adenoma being monitored by Dr. Moy Benign hypertension (Chronic) Heart murmur (Chronic) Edema (Chronic) Depression (Chronic) Chronic sinusitis (Chronic) Allergic rhinitis (Chronic) Urinary frequency Asthma Allergic rhinitis with postnasal drip Hearing loss Medical History Morbid obesity Atrial fibrillation with rapid ventricular response COVID-19 Close exposure to 2019 novel coronavirus Cystine stones Nephrolithiasis Cystinuria Abnormal ventricular wall motion Asthma, mild persistent Attention deficit disorder without hyperactivity Dysmetabolic syndrome X Hypercholesterolemia Restrictive lung disease secondary to obesity ADHD Fatty liver Asthma rare use of PRN inh Heart murmur last echo > 10 years ago [place]; 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 still w/o taste/smell History of anesthesia reaction during one of cystoscopies "bit down hard and broke part of my tooth off" IBS (irritable bowel syndrome) Depression Hyperlipidemia Surgical History History of sleeve gastrectomy History of hysterectomy History of carpal tunnel surgery of right wrist History of hand surgery right ligament repair History of repair of left rotator cuff History of arthroscopy of left knee History of lithotripsy History of cystoscopy History of tooth extraction History of endoscopic sinus surgery Status post myringotomy with tube placement of both ears H/O tubal ligation Family History Grandmother (Maternal) Colon cancer FH: deafness or hearing loss Breast cancer Uterine cancer Mother Asthma Hypertension History of coronary artery bypass surgery Uterine cancer Pancreatic cancer Son Asthma Grandfather (Maternal) FH: deafness or hearing loss Prostate cancer Aunt Cancer Brother Cancer, Onset Age: 53 Other No family history of adverse response to anesthesia Sinusitis Denies family history of Ovarian cancer Cardiac disorder Allergies Myocardial infarction Adverse anesthesia outcome Bleeding disorder Stroke Social History Smoking Status: Never smoker Second Hand Exposure: No; Do You Dip or Chew Tobacco: No; Hx Alcohol Use: Yes Alcohol type: wine Hx Substance Use: No Preferred Language: Bengali Communication Ability: Effective Visual Impairment: No Limitations Hearing Ability: Normal Import Dispatcher Required: No Beliefs That Will Affect Care: None marital status: Current Living Situation: Spouse current occupational status: employed 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 How many Children do You have: 2 Feels Safe at Home: Yes Childhood Exposure to Second-Hand Smoke: Yes Diet: regular caffeine: Yes Dental Care, Regularly: Yes Physical Activity Frequency: Daily Seatbelt Use: always Sunscreen Use: Yes Assistive Devices: Glasses and Hearing Aid - Bilateral Results & Data Results & Data Vital Signs (Past 12 Hours) Vital Signs Temp Pulse Pulse Resp BP BP Pulse Ox 08/23/24 22:27 61 08/23/24 21:00 59 L 20 141/74 H 99 08/23/24 19:16 64 20 156/85 H 94 08/23/24 18:40 67 08/23/24 17:26 98 08/23/24 17:26 08/23/24 17:22 36.4 C L 72 20 198/94 H 94 08/23/24 17:16 O2 Del Method 08/23/24 22:27 08/23/24 21:00 Room Air 08/23/24 19:16 Room Air 08/23/24 18:40 08/23/24 17:26 Room Air 08/23/24 17:26 Room Air 08/23/24 17:22 Room Air 08/23/24 17:16 Room Air PG Care Time/CCT Total # of Minutes Spent Total Time Spent with Patient: Total time spent is greater than 50% in coordination of care (as documented) at patient's floor/unit and/or counseling patient: Coding
[2024-08-23] MEDS: LORazepam 2 MG/1 ML VIAL IV STA (23:51)
[2024-08-24] MEDS ORDERED: ONDANSETRON INJ 2 MG/ML 2 ML VIAL IV PRN (01:16)
[2024-08-24] MEDS ORDERED: ALBUTEROL HFA 8 GM INHALER INH PRN (01:16)
[2024-08-24] MEDS ORDERED: ACETAMINOPHEN 500 MG TAB PO PRN (01:16)
[2024-08-24] MEDS: CHECK CLONIDINE PATCH PLACEMENT SCH (02:21)
--- NOTE | 2024-08-24 02:27 | History & Physical Report ---
Date of Service August 24, 2024 Assessment & Plan (1) Hypertension: (2) Hyperlipidemia: (3) Atrial fibrillation with rapid ventricular response: Plan #Shortness of breath - patient with history of moderate MR for which she has been following with Cardiology. Possible fluid retention in part from recent steroid use -Observation to medical with telemetry -Diuresis with Lasix 40mg IV daily -Monitor I/O's -Daily weights -Check 2D echo #Atrial Fibrillation -Continue Apixaban #Asthma -Continue Albuterol PRN -Fluticasone/Vilanterol daily #Hypertension -Continue Amlodipine -Continue Clonidine patch q -Continue Metoprolol #Hyperlipidemia -Continue Atorvastatin #Depression/Anxiety -Continue Fluoxetine Admission and Anticipated Discharge Date Admission Date: August 23, 2024 History of Present Illness Chief Complaint: shortness of breath Primary Care Provider: Tj Rowe, III, GUITAR MAKER 58yo female - has been diagnosed with PNA 3x since March - treated with antibiotics and steroids outpatient. Seen last week with worsening SOB - had CXR which suggested pulmonary edema. Started on Lasix 20mg po daily - reports good diuresis and temporary improvement in symptoms but has had worsening shortness of breath over the last several days. Complains of GREENE as well as at rest, orthopnea, weight gain of 5-6 pounds Complains of wheeze No chest pain, palpitations, vomiting, diarrhea ER Course: Lasix 40mg IV x 1 Allergies Allergy/AdvReac Type Severity Reaction Status Date / Time mold Allergy Unknown UPPER Verified 08/18/24 09:25 RESPIRATORY ISSUES, FLARE UP OF ASTHMA house dust Allergy upper Verified 08/18/24 09:25 respiratory issues, flare-up asthma Home Medications Medication Instructions Recorded Confirmed Type fluoxetine 40 mg capsule (Prozac) 40 mg PO HS 02/06/18 08/23/24 History multivitamin,us-jbyv-nlkcrjlv 1 tab PO HS 12/01/18 08/23/24 History (Complete Multivitamin tablet) cholecalciferol (vitamin D3) 50 2,000 units PO PM 01/28/19 08/23/24 History mcg (2,000 unit) capsule azelastine 137 mcg-fluticasone 50 1 - 2 spray intranasal DAILY PRN 02/15/21 08/23/24 Rx mcg/spray nasal spray (Dymista) ALLERGIES #23 grams acetaminophen 500 mg tablet 1,000 mg PO Q8H PRN pain/fever 03/22/21 08/23/24 History (Tylenol Extra Strength) potassium citrate 10 mEq (1,080 10 meq PO DAILY #90 tabs 06/18/23 08/23/24 Rx mg) tablet,extended release montelukast 10 mg tablet 10 mg PO QPM #90 tabs 10/01/23 08/23/24 Rx (Singulair) methylphenidate HCl [Concerta] 36 mg PO DAILY 01/13/24 08/23/24 History amlodipine 5 mg tablet (Norvasc) 5 mg PO QAM #90 tabs 04/15/24 08/23/24 Rx nebivolol 10 mg tablet (Bystolic) 10 mg PO DAILY #90 tabs 04/15/24 08/23/24 Rx atorvastatin 10 mg tablet (Lipitor) 10 mg PO HS Dyslipidemia #90 tabs 05/31/24 08/23/24 Rx clonidine 0.3 mg/24 hr weekly 1 patch topical WK #12 ea 06/04/24 08/23/24 Rx transdermal patch fluticasone 100 mcg-salmeterol 50 1 inh inhalation BID #60 ea 06/09/24 08/23/24 Rx mcg/dose blistr powdr for inhalation (Wixela Inhub) albuterol sulfate 2.5 mg/3 mL 2.5 mg (3 mL) inhalation QID PRN 06/10/24 08/23/24 Rx (0.083 %) solution for nebulization shortness of breath or wheezing #75 mL losartan 100 mg tablet 100 mg PO PM #30 tabs 06/30/24 08/23/24 Rx apixaban 5 mg tablet (Eliquis) 5 mg PO BID #180 tabs 07/26/24 08/23/24 Rx furosemide 20 mg tablet 20 mg PO DAILY #1 tab 08/18/24 08/23/24 Rx levofloxacin 500 mg tablet 500 mg PO DAILY #10 tabs 08/18/24 08/23/24 Rx prednisone 10 mg tablet See Rx Instructions PO DAILY #30 08/18/24 08/23/24 Rx tabs albuterol sulfate 90 mcg/actuation 1 - 2 inh inhalation Q4H PRN 08/23/24 08/23/24 History aerosol inhaler (Ventolin HFA) shortness of breath or wheezing Past Med/Surg History Problem List Morbid obesity with BMI of 50.0-59.9, adult Hypersomnia Hypertension Mitral regurgitation Anticoagulant long-term use Vitamin D deficiency (Chronic) SNHL (sensorineural hearing loss) (Chronic) Incidental adrenal cortical adenoma being monitored by Dr. Moy Benign hypertension (Chronic) Heart murmur (Chronic) Edema (Chronic) Depression (Chronic) Chronic sinusitis (Chronic) Allergic rhinitis (Chronic) Urinary frequency Asthma Allergic rhinitis with postnasal drip Hearing loss Medical History Morbid obesity Atrial fibrillation with rapid ventricular response COVID-19 Close exposure to 2018 novel coronavirus Cystine stones Nephrolithiasis Cystinuria Abnormal ventricular wall motion Asthma, mild persistent Attention deficit disorder without hyperactivity Dysmetabolic syndrome X Hypercholesterolemia Restrictive lung disease secondary to obesity ADHD Fatty liver Asthma rare use of PRN inh Heart murmur last echo > 10 years ago [place]; 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 still w/o taste/smell History of anesthesia reaction during one of cystoscopies "bit down hard and broke part of my tooth off" IBS (irritable bowel syndrome) Depression Hyperlipidemia Surgical History History of sleeve gastrectomy History of hysterectomy History of carpal tunnel surgery of right wrist History of hand surgery right ligament repair History of repair of left rotator cuff History of arthroscopy of left knee History of lithotripsy History of cystoscopy History of tooth extraction History of endoscopic sinus surgery Status post myringotomy with tube placement of both ears H/O tubal ligation Family History Grandmother (Maternal) Colon cancer FH: deafness or hearing loss Breast cancer Uterine cancer Mother Asthma Hypertension History of coronary artery bypass surgery Uterine cancer Pancreatic cancer Son Asthma Grandfather (Maternal) FH: deafness or hearing loss Prostate cancer Aunt Cancer Brother Cancer, Onset Age: 53 Other No family history of adverse response to anesthesia Sinusitis Denies family history of Ovarian cancer Cardiac disorder Allergies Myocardial infarction Adverse anesthesia outcome Bleeding disorder Stroke Social History Smoking Status: Never smoker Second Hand Exposure: No; Do You Dip or Chew Tobacco: No; Hx Alcohol Use: Yes Alcohol type: wine Hx Substance Use: No Preferred Language: Burundian Communication Ability: Effective Visual Impairment: No Limitations Hearing Ability: Normal Mail Handler Assistant Required: No Beliefs That Will Affect Care: None marital status: Current Living Situation: Spouse current occupational status: employed 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 How many Children do You have: 2 Feels Safe at Home: Yes Childhood Exposure to Second-Hand Smoke: Yes Diet: regular caffeine: Yes Dental Care, Regularly: Yes Physical Activity Frequency: Daily Seatbelt Use: always Sunscreen Use: Yes Assistive Devices: Glasses and Hearing Aid - Bilateral Review of Systems Review of Systems: All systems reviewed & are unremarkable except as noted in HPI & below Physical Exam Physical Exam: General: patient resting comfortably, NAD, non-toxic in appearance, AA&O x 4, anxious Skin: warm, dry, intact, no rashes or lesions HEENT: NC/AT, PERRL, EOMI, anicteric sclera, conjunctiva without injection, external ear normal to inspection and nontender, nares patent, moist mucus membranes, dentition intact, no oropharyngeal lesions, neck supple, trachea midline, no LAD, no thyromegaly, no JVD Heart: +S1/S2, regular, no m/r/g Lungs: equal air entry bilaterally, no rales/rhonchi/wheezes Abd: +BS, soft, NT/ND, no masses/organomegaly/ascites Ext: warm, 2+ pulses in UE/LE bilaterally, no clubbing/cyanosis or edema Neuro: nonfocal, patient AA&O x 4, speech intact, no facial droop, moving all extremities on command with equal strength 5/5 Results & Data Results & Data Vital Signs (Past 12 Hours) Vital Signs Temp Pulse Pulse Resp BP BP Pulse Ox 08/24/24 01:49 08/24/24 01:49 36.5 C 58 L 18 146/84 H 95 08/24/24 00:27 60 16 138/80 92 08/24/24 00:12 60 21 93 08/24/24 00:00 60 14 92 03/25 23:54 93 08/23/24 22:27 61 08/23/24 22:21 59 L 18 98 08/23/24 22:18 59 L 17 98 08/23/24 21:55 141/74 H 08/23/24 21:55 141/74 H 08/23/24 21:55 141/74 H 08/23/24 21:55 141/74 H 08/23/24 21:55 141/74 H 08/23/24 21:55 141/74 H 08/23/24 21:55 141/74 H 08/23/24 21:55 141/74 H 08/23/24 21:55 141/74 H 08/23/24 21:55 141/74 H 08/23/24 21:55 141/74 H 08/23/24 21:55 141/74 H 08/23/24 21:55 141/74 H 08/23/24 21:55 141/74 H 08/23/24 21:55 141/74 H 08/23/24 21:55 141/74 H 08/23/24 21:55 141/74 H 08/23/24 21:55 141/74 H 08/23/24 21:55 141/74 H 08/23/24 21:55 141/74 H 08/23/24 21:55 141/74 H 08/23/24 21:55 141/74 H 08/23/24 21:55 141/74 H 08/23/24 21:54 60 14 98 08/23/24 21:51 69 14 98 08/23/24 21:48 61 18 98 08/23/24 21:12 61 16 97 08/23/24 21:06 57 L 19 99 08/23/24 21:00 59 L 20 141/74 H 99 08/23/24 20:36 60 18 98 08/23/24 20:18 60 14 100 08/23/24 19:45 62 20 98 08/23/24 19:33 65 21 98 08/23/24 19:18 68 21 08/23/24 19:16 64 20 156/85 H 94 08/23/24 18:54 58 L 14 98 08/23/24 18:45 60 18 99 08/23/24 18:40 67 08/23/24 18:37 156/85 H 08/23/24 18:37 156/85 H 08/23/24 18:37 156/85 H 08/23/24 18:37 156/85 H 08/23/24 18:37 156/85 H 08/23/24 18:37 156/85 H 08/23/24 18:37 156/85 H 08/23/24 18:37 156/85 H 08/23/24 18:37 156/85 H 08/23/24 18:37 156/85 H 08/23/24 18:37 156/85 H 08/23/24 18:37 156/85 H 08/23/24 17:26 98 08/23/24 17:26 08/23/24 17:22 36.4 C L 72 20 198/94 H 94 08/23/24 17:16 O2 Del Method 08/24/24 01:49 Room Air 08/24/24 01:49 Room Air 08/24/24 00:27 Room Air 08/24/24 00:12 08/24/24 00:00 08/23/24 23:54 08/23/24 22:27 08/23/24 22:21 08/23/24 22:18 08/23/24 21:55 08/23/24 21:55 08/23/24 21:55 08/23/24 21:55 08/23/24 21:55 08/23/24 21:55 08/23/24 21:55 08/23/24 21:55 08/23/24 21:55 08/23/24 21:55 08/23/24 21:55 08/23/24 21:55 08/23/24 21:55 08/23/24 21:55 08/23/24 21:55 08/23/24 21:55 08/23/24 21:55 08/23/24 21:55 08/23/24 21:55 08/23/24 21:55 08/23/24 21:55 08/23/24 21:55 08/23/24 21:55 08/23/24 21:54 08/23/24 21:51 08/23/24 21:48 08/23/24 21:12 08/23/24 21:06 08/23/24 21:00 Room Air 08/23/24 20:36 08/23/24 20:18 08/23/24 19:45 08/23/24 19:33 08/23/24 19:18 08/23/24 19:16 Room Air 08/23/24 18:54 08/23/24 18:45 08/23/24 18:40 08/23/24 18:37 08/23/24 18:37 08/23/24 18:37 08/23/24 18:37 08/23/24 18:37 08/23/24 18:37 08/23/24 18:37 08/23/24 18:37 08/23/24 18:37 08/23/24 18:37 08/23/24 18:37 08/23/24 18:37 08/23/24 17:26 Room Air 08/23/24 17:26 Room Air 08/23/24 17:22 Room Air 08/23/24 17:16 Room Air Laboratory Results Laboratory Results WBC 11.04 K/ul (4.8-10.8) H 08/23/24 17:41 RBC 4.65 M/uL (4.20-5.40) 08/23/24 17:41 Hgb 13.5 g/dl (12.0-16.0) 08/23/24 17:41 Hct 40.7 % (37.0-47.0) 08/23/24 17:41 MCV 87.5 fL (80.0-100.0) 08/23/24 17:41 MCH 29.0 pg (25.0-34.0) 08/23/24 17:41 MCHC 33.2 g/dL (32.0-36.0) 08/23/24 17:41 RDW Std Deviation 44.5 fL (36.4-46.3) 08/23/24 17:41 RDW Coeff of Isabelle 13.9 % (11.5-14.5) 08/23/24 17:41 Plt Count 340 K/uL (130-400) 08/23/24 17:41 MPV 8.9 fL (9.4-12.4) L 08/23/24 17:41 Immature Gran % (Auto) 0.6 % 08/23/24 17:41 Neut % (Auto) 77.9 % 08/23/24 17:41 Lymph % (Auto) 16.1 % 08/23/24 17:41 [place] % (Auto) 5.3 % 08/23/24 17:41 Eos % (Auto) 0.0 % 08/23/24 17:41 Baso % (Auto) 0.1 % 08/23/24 17:41 Neut # (Auto) 8.60 K/uL (1.40-6.50) H 08/23/24 17:41 Lymph # (Auto) 1.78 K/uL (1.20-3.40) 08/23/24 17:41 [place] # (Auto) 0.58 K/uL (0.11-0.59) 08/23/24 17:41 Eos # (Auto) 0.00 K/uL (0.00-0.50) 08/23/24 17:41 Baso # (Auto) 0.01 K/uL (0.00-0.20) 08/23/24 17:41 Immature Gran # (Auto) 0.07 K/uL (0.01-0.20) 08/23/24 17:41 PT 10.3 Seconds (9.0-12.0) 08/23/24 17:41 INR 0.9 (0.9-1.1) 08/23/24 17:41 APTT 28 Seconds (-31) 08/23/24 17:41 PTT Ratio 1.0 08/23/24 17:41 Sodium 141 mmol/L (136-145) 08/23/24 17:41 Potassium 3.7 mmol/L (3.5-5.1) 08/23/24 17:41 Chloride 105 mmol/L (98-107) 08/23/24 17:41 Carbon Dioxide 28 mmol/L (21-32) 08/23/24 17:41 Anion Gap 8 (3-11) 08/23/24 17:41 BUN 27 mg/dl (6-23) H 08/23/24 17:41 Creatinine 0.89 mg/dl (0.6-1.2) 08/23/24 17:41 Est Cr Clr Drug Dosing 93.4 ml/min 08/23/24 17:41 eGFR 74.64 08/23/24 17:41 BUN/Creatinine Ratio 30.3 (10-20) H 08/23/24 17:41 Glucose 109 mg/dl (70-99(Fasting)) H 08/23/24 17:41 Calcium 10.0 mg/dl (8.6-10.3) 08/23/24 17:41 Magnesium 2.0 mg/dl (1.7-2.4) 08/23/24 17:41 Total Bilirubin 0.5 mg/dl (0.2-1.0) 08/23/24 17:41 AST 27 U/L (13-39) 08/23/24 17:41 ALT 58 U/L (7-52) H 08/23/24 17:41 Alkaline Phosphatase 120 U/L (34-104) H 08/23/24 17:41 Troponin I High Sens < 2.3 pg/ml (0-14) 08/23/24 17:41 B-Natriuretic Peptide 239 pg/ml (0-100) H 08/23/24 17:41 Total Protein 7.9 gm/dl (6.0-8.3) 08/23/24 17:41 Albumin 4.2 gm/dl (3.4-5.0) 08/23/24 17:41 Globulin 3.7 gm/dl (2.5-4.0) 08/23/24 17:41 Albumin/Globulin Ratio 1.1 (0.9-2) 08/23/24 17:41 Procalcitonin < 0.02 ng/ml (0-0.5) 08/23/24 17:41 SARS-CoV-2 (PCR) NEGATIVE (Negative) 08/23/24 20:02 Influenza Type A (PCR) Negative (Neg) 08/23/24 20:02 Influenza Type B (PCR) Negative (Neg) 08/23/24 20:02 RSV (RT-PCR) Negative (Neg) 08/23/24 20:02 Impressions Chest X-Ray 08/23/24 17:26 EXAM: XR chest 1V not portable CLINICAL HISTORY: Chest pain, nonspecific TECHNIQUE: An X-ray image of the chest is obtained in AP projection. 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 Haziness in the bilateral lower zones No evidence of pleural effusion. Heart and Mediastinum: The heart size is mildly enlarged with bilateral congested carole. Dilated unfolded aorta with calcific aortic arch. No mediastinal widening or masses. No hilar or mediastinal lymphadenopathy. 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 A screw applied at the right humeral head. Otherwise, the bony thorax appears intact without fractures or deformities. Soft Tissues: Soft tissues overlying the chest wall are unremarkable. IMPRESSION: 1. Findings represent mild infection/congestion; advise clinical and lab correlation. 2. 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 A screw applied at the right humeral head. Clinical correlation is needed. 3. No changes on interval. Electronically signed by Luis Felipe Jaramillo 08-23-2024 7:17 PM PG Care Time/CCT Total # of Minutes Spent Total Time Spent with Patient: Total time spent is greater than 50% in coordination of care (as documented) at patient's floor/unit and/or counseling patient: Coding Level of Care Code 56935 INT INP/OBS CARE 3/75MIN Diagnoses Primary hypertension I10 Hypertension type: primary hypertension Hyperlipidemia E78.5 Atrial fibrillation with rapid ventricular response I48.91 (1) Hypertension Hypertension type: primary hypertension Qualified Code(s): I10 - Essential (primary) hypertension
--- OUTSIDE RECORDS SUMMARY | 2024-08-24 04:22 | External Medical Summary | Summary of Care ---
Author Name Unknown Organization [facility] Address [address] [place] [address] Phone [phone] Care Team Providers Care [employer] Name Role Phone Tj Rowe Primary Care Provider Reason for Referral * Evaluate & Treat - Unlimited Visits (Within 10 days (routine)) - Pending Review Specialty Diagnoses / Procedures Referred By Contact Referred To Contact GI NUTRITION/IM / Gastroenterology Diagnoses Morbid (severe) obesity due to excess calories (HCC) Body mass index (BMI) 50.0-59.9, adult (HCC) Tj Rowe CRNP [address] [place] [address] [place] [address] Phone: tel: fax: Referral ID Status Reason Start Date Expiration Date Visits Requested Visits Authorized [id number] Pending Review Specialty Services Required 08/18/[phone] Question Answer Referral Priority Within 10 days (routine) Where should this appointment be scheduled? [facility] For what condition is the patient being seen? Obesity Is this referral for a GLP1 medication? No Comments THE PATIENT WILL NOT BE PRESCRIBED GLP-1 MEDICATIONS UNLESS: *Documentation of an unsuccessful trial of losing at least 5% of weight loss *Documentation the patient has had tried and failed two [2] non-GLP1 agonists (Phentermine and Wellbutrin/ Naltrexone) *Documentation of two [2] or more appointments discussing weight loss and lifestyle changes *Documentation of a blood pressure and weight within the EMR before initiation of the GLP-1 or non-GLP-1 medications REFERRING PROVIDER MUST ACKNOWLEDGE ALL OF THE CONDITIONS ABOVE ARE MET AND HAVE A BMI >35. IF THESE CONDITIONS ARE NOT MET THE PATIENT WILL NOT BE PRESCRIBED GLP- 1 PRESCRIPTIONS. Encounter Details Date Type Department Care Team (Late st Contact Info) Description 08/18/2024 Orders Only Access [facility], [address] Ext *DO NOT REMOVE THIS DEPARTMENT* [place] [id number] Request, External Referral Morbid (severe) obesity due to excess calories (HCC)*; Body mass index (BMI) 50.0-59.9, adult (HCC) Allergies Active Allergy Reactions Criticality Noted Date Comments Molds & Smuts 05/13/2012 And dust documented as of this encounter (statuses as of 08/18/2024) Medications LORATADINE 10 MG PO CAPS daily Active NASONEX 50 MCG/ACT NA SUSPIndications :Other chronic sinusitis 2 squirts to each nostril once a day 1 Bottle 5 10/09/2012 Active LOSARTAN POTASSIUM-HCTZ 50-12.5 MG PO TABS One tab daily 0 03/14/2014 Active UROCIT-K 10 10 MEQ (1080 MG) PO TBCR 2 TABLET 3 TIMES DAILY 180 Tab 5 07/07/2014 Active IBUPROFEN 200 MG PO TABS as needed Active tamsulosin (FLOMAX) 0.4 MG Capsule Take 1 Cap by mouth daily. 30 Cap 1 10/03/2014 Active FLUoxetine HCl (PROZAC) 40 MG Capsule 1 tablet daily Active VYVANSE 50 MG Capsule TK 1 C PO D IN THE MORNING 0 05/13/2018 Active Vitamin D, Ergocalciferol, 72052 units Capsule TK 1 C PO WEEKLY WITH LARGEST MEAL FOR 14 WKS 0 05/09/2018 Active SYMBICORT 160-4.5 MCG/ACT inhaler 3 04/17/2018 Active documented as of this encounter (statuses as of 08/18/2024) Active Problems Problem Noted Date Diagnosed Date Prediabetes 06/10/2018 HTN, goal below 140/90 06/10/2018 Depression 06/10/2018 Vitamin D deficiency 06/10/2018 Other and unspecified ovarian cyst 11/01/2014 Preoperative cardiovascular examination 10/14/19 15 Ureteral stone 06/24/2014 Calculus of kidney 06/20/2014 Acute left flank pain 06/20/2014 Fibroids 04/29/2014 Family history of uterine cancer 11/24/2013 Abnormal uterine bleeding 11/24/2013 CIRCUMSCRIBE SCLERODERMA - lichen sclerosis 11/24 VULVITIS NOS 10/09/2006 Excessive menstruation 10/09/2006 documented as of this encounter (statuses as of 08/18/2024) Immunizations No known immunizationsdocumented as of this encounter Social History Tobacco Use Types Packs/Day Years Used Date Smoking Tobacco: Never Smokeless Tobacco: Never Alcohol Use Standard Drinks/Week Comments No 0 (1 standard drink = 0.6 oz pur e alcohol) Comments No Sex and Gender Information Value Date Recorded Sex Assigned at Not on file Legal Sex Female 5:32 AM EST Gender Identity Not on file Sexual Orientation Not on file documented as of this encounter Plan of Treatment Scheduled Referrals Name Type Priority Associated Diagnoses Orde r Schedule GI NUTRITION REFERRAL OP Referral Within 10 days (routine) Morbid (severe) obesity due to excess calories (HCC) Body mass index (BMI) 50.0-59.9, adult (HCC) Ordered: 08/18/2024 Health Maintenance Due Date Last Done Comments Lipid Panel 1964 HbA1c 1972 HIV Screening 09/02/1979 Albumin/Creatinine Ratio 1982 Hepatitis C Screening 1982 DTap/Tdap Vaccines (1 - Tdap) 09/02/1983 Hepatitis B Vaccine (1 of 3 - 19+ 3-dose series) 09/02/1983 Cologuard 2009 Colonoscopy 2009 Colorectal Cancer Screening 2009 Fecal Occult Blood Test 2009 Sigmoidoscopy 2009 Mammogram 05/25/2013 05/25/2012, 05/26, 05/21/2011 Pneumococcal Vaccine: 50+ Years (1 of 1 - PCV) 2014 Zoster Vaccines (1 of 2) 2014 GFR 10/12/2015 10/11/2014, 08/24, 06/23/2014, Additional history exists Depression Monitoring 11/02/2015 11/01/2014 COVID-19 Vaccine (1 - 2023-25 season) 2024 Influenza Vaccine (FLU shot) (#1) 2024 HPV (Gardasil) Vaccine Aged Out No lo nger eligible based on patient's age to complete this topic MENINGOCOCCAL (MENACTRA/MENVEO) Aged Out No longer eligible based on patient's age to complete this topic Meningitis B Vaccine (Bexsero/Trumemba) Aged Out No longer eligible based on patient's age to complete this topic documented as of this encounter Medical Devices Not on filedocumented as of this encounter Visit Diagnoses Diagnosis Morbid (severe) obesity due to excess calories (HCC)- Primary Body mass index (BMI) 50.0-59.9, adult (HCC) documented in this encounter Care Teams [employer] Relationship Specialty Start Date End Date Tj Rowe CRNP PCP - General Nurse Practitioner 07/13/14 documented as of this encounter
[2024-08-24 06:35] LABS: Hematocrit (blood only) 37.3 % (37.0-47.0); Hemoglobin 12.5 g/dl (12.0-16.0); Mean Corpuscular Hemoglobin 29.3 pg (25.0-34.0); Mean Corpuscular Hgb Conc 33.5 g/dL (32.0-36.0); Mean Corpuscular Volume 87.4 fL (80.0-100.0); Mean Platelet Volume 9.1 fL (9.4-12.4); Platelet Count 311 K/uL (130-400); RDW Coefficient of Variation 13.9 % (11.5-14.5); RDW Standard Deviation 44.4 fL (36.4-46.3); Red Blood Count 4.27 M/uL (4.20-5.40); White Blood Count 10.42 K/ul (4.8-10.8)
[2024-08-24 06:57] LABS: Albumin Globulin Ratio 1.2 (0.9-2); Albumin Level 3.7 gm/dl (3.4-5.0); BUN Creatinine Ratio 28.7 (10-20); Bilirubin,Total 0.6 mg/dl (0.2-1.0); Calcium 9.2 mg/dl (8.6-10.3); Creatinine Clr Calc Pharmacy 94.7 ml/min; Potassium 3.4 mmol/L (3.5-5.1); Total Protein 6.7 gm/dl (6.0-8.3)
[2024-08-24 07:39] VITALS: RESP 16; O2SAT 96
[2024-08-24] MEDS: APIXABAN 5 MG TABLET PO SCH (07:41)
[2024-08-24] MEDS: FLUTICASONE/VILANTEROL 100/25MCG 14 PUFFS/INHALER INH SCH (07:41)
[2024-08-24] MEDS: FUROSEMIDE 40 MG/4 ML VIAL IV SCH (07:46)
[2024-08-24] MEDS: CONCERTA~ORDER AWAITING ACTION SCH (07:46)
[2024-08-24] MEDS: amLODIPine BESYLATE 5 MG TAB PO SCH (07:46)
[2024-08-24] MEDS: METOPROLOL TARTRATE 50 MG TAB PO SCH (07:46)
--- NOTE | 2024-08-24 07:46 | Hospitalist Progress Note ---
Date of Service August 24, 2024 Assessment & Plan (1) Hypertension: (2) Hyperlipidemia: (3) Atrial fibrillation with rapid ventricular response: Plan 58yo F presented with worsening SOB, GREENE as well as at rest, orthopnea, weight gain of 5-6 pounds despite starting lasix 20mg PO daily for outpt CXR w/ pulmonary edema #Shortness of breath - patient with history of moderate MR for which she has been following with Cardiology. Possible fluid retention in part from recent steroid use -Observation to medical with telemetry -Diuresis with Lasix 40mg IV daily -Monitor I/O's -Daily weights -Check 2D echo 08/24 Lasix 40mg IV BID, K 3.4 and will add 40meq PO BID for now. Mag stable 2.0 Weight 132.9kg last week, 131.9 on admission and presently 129.9kg Notable did have pulmonary edema on CXR 04/11/24 as well, recent rx lasix 20mg ?underlying JASON -- reports HAD STUDY LAST FALL/WINTER< NO JASON Monitor weights, I&Os - ECHO pending ?possible dc pending echo and repeat CXR Plan to dc Lasix 40mg PO daily (with 40meq Kcl) and repeat labs FRIDAY this week. Additional 40mg PO weight gain >3lb 24 hr and >5lb in a week. Low salt diet/fluid restriction. Eval this morning, just got back from CXR> Cough much improved/resolved. Reports had been sleeping in recliner chair for past two weeks. Increased weight gain but also was on steroids. Discussed suspect could have been CHF related, does have some mild MR/follows with Dr Eugene. Reports ECHO done this morning. Pending ECHO results, discussed dc on Lasix 40mg PO daily (with potassium supplementation) and monitoring weights and repeat labs later this week. Possible BID dosing but will keep once daily for now. F/u PCP and cards at dc later this week. #Atrial Fibrillation -Continue Apixaban, nebivolol/metoprolol equivalent. Notable also on concerta daily #Asthma -Continue Albuterol PRN -Fluticasone/Vilanterol daily #Hypertension -Continue Amlodipine -Continue Clonidine patch q -Continue Metoprolol (on nebivolol 20mg) #Hyperlipidemia -Continue Atorvastatin #Depression/Anxiety -Continue Fluoxetine Admission and Anticipated Discharge Date Admission Date: August 23, 2024 Subjective Eval this morning, just got back from CXR> Cough much improved/resolved. Reports had been sleeping in recliner chair for past two weeks. Increased weight gain but also was on steroids. Discussed suspect could have been CHF related, does have some mild MR/follows with Dr Eugene. Reports ECHO done this morning. Pending ECHO results, discussed dc on Lasix 40mg PO daily (with potassium supplementation) and monitoring weights and repeat labs later this week. Possible BID dosing but will keep once daily for now. F/u PCP and cards at dc later this week. Results & Data Results & Data Vital Signs (Past 12 Hours) Vital Signs Temp Pulse Pulse Pulse Resp BP BP 08/24/24 07:38 36.5 C 60 16 157/91 H 08/24/24 07:11 56 L 08/24/24 01:59 36.6 C 58 L 18 112/70 08/24/24 01:49 08/24/24 01:49 36.5 C 58 L 18 08/24/24 00:55 59 L 08/24/24 00:27 60 16 138/80 08/24/24 00:12 60 21 08/24/24 00:00 60 14 08/23/24 23:54 08/23/24 22:27 61 08/23/24 22:21 59 L 18 08/23/24 22:18 59 L 17 08/23/24 21:55 141/74 H 08/23/24 21:55 141/74 H 08/23/24 21:55 141/74 H 08/23/24 21:55 141/74 H 08/23/24 21:55 141/74 H 08/23/24 21:55 141/74 H 08/23/24 21:55 141/74 H 08/23/24 21:55 141/74 H 08/23/24 21:55 141/74 H 08/23/24 21:55 141/74 H 08/23/24 21:55 141/74 H 08/23/24 21:55 141/74 H 08/23/24 21:55 141/74 H 08/23/24 21:55 141/74 H 08/23/24 21:55 141/74 H 08/23/24 21:55 141/74 H 08/23/24 21:55 141/74 H 08/23/24 21:55 141/74 H 08/23/24 21:55 141/74 H 08/23/24 21:55 141/74 H 08/23/24 21:55 141/74 H 08/23/24 21:55 141/74 H 08/23/24 21:55 141/74 H 08/23/24 21:54 60 14 08/23/24 21:51 69 14 08/23/24 21:48 61 18 08/23/24 21:12 61 16 08/23/24 21:06 57 L 19 08/23/24 21:00 59 L 20 08/23/24 20:36 60 18 08/23/24 20:18 60 14 08/23/24 19:45 62 20 BP Pulse Ox O2 Del Method 08/24/24 07:38 96 Room Air 08/24/24 07:11 08/24/24 01:59 97 Room Air 08/24/24 01:49 Room Air 08/24/24 01:49 146/84 H 95 Room Air 08/24/24 00:55 08/24/24 00:27 92 Room Air 08/24/24 00:12 93 08/24/24 00:00 92 08/23/24 23:54 93 08/23/24 22:27 08/23/24 22:21 98 08/23/24 22:18 98 08/23/24 21:55 08/23/24 21:55 08/23/24 21:55 08/23/24 21:55 08/23/24 21:55 08/23/24 21:55 08/23/24 21:55 08/23/24 21:55 08/23/24 21:55 08/23/24 21:55 08/23/24 21:55 08/23/24 21:55 08/23/24 21:55 08/23/24 21:55 08/23/24 21:55 08/23/24 21:55 08/23/24 21:55 08/23/24 21:55 08/23/24 21:55 08/23/24 21:55 08/23/24 21:55 08/23/24 21:55 08/23/24 21:55 08/23/24 21:54 98 08/23/24 21:51 98 08/23/24 21:48 98 08/23/24 21:12 97 08/23/24 21:06 99 08/23/24 21:00 141/74 H 99 Room Air 08/23/24 20:36 98 08/23/24 20:18 100 08/23/24 19:45 98 Laboratory Results 08/24/24 05:40 08/24/24 05:40 ALP 105 BNP 239 Mag 2.0 Diagnostic Findings Chest X-Ray 08/23/24 17:26 EXAM: XR chest 1V not portable CLINICAL HISTORY: Chest pain, nonspecific TECHNIQUE: An X-ray image of the chest is obtained in AP projection. COMPARISON: 08/18/2024 08:47:22 POST PARTUM NURSE FINDINGS: Pulmonary Parenchyma: Decrease both lung volume (expiratory film) Increased bronchovascular markings. Haziness in the bilateral lower zones No evidence of pleural effusion. Heart and Mediastinum: The heart size is mildly enlarged with bilateral congested carole. Dilated unfolded aorta with calcific aortic arch. No mediastinal widening or masses. No hilar or mediastinal lymphadenopathy. 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 A screw applied at the right humeral head. Otherwise, the bony thorax appears intact without fractures or deformities. Soft Tissues: Soft tissues overlying the chest wall are unremarkable. IMPRESSION: 1. Findings represent mild infection/congestion; advise clinical and lab correlation. 2. 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 A screw applied at the right humeral head. Clinical correlation is needed. 3. No changes on interval. Electronically signed by Luis Felipe Jaramillo 08-23-2024 7:17 PM PG Care Time/CCT Total # of Minutes Spent Total Time Spent with Patient: Total time spent is greater than 50% in coordination of care (as documented) at patient's floor/unit and/or counseling patient: Coding Diagnoses Primary hypertension I10 Hypertension type: primary hypertension Hyperlipidemia E78.5 Atrial fibrillation with rapid ventricular response I48.91 (1) Hypertension Hypertension type: primary hypertension Qualified Code(s): I10 - Essential (primary) hypertension
--- NOTE | 2024-08-24 07:54 | Electrocardiogram Report ---
Test Reason : Blood Pressure : */* mmHG Vent. Rate : 70 BPM Atrial Rate : 70 BPM P-R Int : 174 ms QRS Dur : 98 ms QT Int : 388 ms P-R-T Axes : 56 -8 26 degrees QTcB Int : 419 ms Normal sinus rhythm Normal ECG When compared with ECG of 11-Apr-2024 17:27, No significant change was found Confirmed by Krish Plunkett [id number] on 08/24/2024 7:54:00 AM Referred By: Confirmed By: Krish Plunkett
[2024-08-24] MEDS: POTASSIUM CHLORIDE CRTAB 20 MEQ TABCR PO SCH (09:05)
--- NOTE | 2024-08-24 09:36 | XRay Report ---
XR chest 2V PA/lateral CLINICAL HISTORY: follow up CHF vs infectious COMPARISON STUDY: Chest CT June 06, 2023. Chest radiograph August 23, 2024. FINDINGS: There are postoperative findings within the right shoulder. No pneumothorax or pleural effu alin is present. There is no consolidation to suggest pneumonia. Cardiomediastinal silhouette is unre markable. There is no consolidation or evidence for pulmonary edema. Pulmonary vascular congestion guerrero s improved. Old left rib fractures are incidentally noted. IMPRESSION: No acute cardiopulmonary findings. Interval improvement in pulmonary vascular congestion . ACT 112: Negative or not required by law. Electronically signed by: Craig Ramirez M.D. 08/24/2024 9:35 AM
--- NOTE | 2024-08-24 09:59 | XCELERA ---
[id number] \\[email or web address]\[id number]
--- NOTE | 2024-08-24 10:03 | Discharge Summary ---
Discharge Summary Date of Service August 24, 2024 Principal Dx & Hospital Course #1 = Principal Diagnosis (1) Hypertension: (2) Hyperlipidemia: (3) Atrial fibrillation with rapid ventricular response: Plan 58yo F presented with worsening SOB, GREENE as well as at rest, orthopnea, weight gain of 5-6 pounds #Shortness of breath - patient with history of moderate MR for which she has been following with Cardiology. Possible fluid retention in part from recent steroid use #HFpEF, NEW, possible 2nd to steroids/fluid retention but did report having to sleep in recliner for past 2 weeks and was having CHF exacerbation with weight gain on admission SOB improved but worsened despite starting lasix 20mg PO daily (which she only took one day) for outpt CXR w/ pulmonary edema with recent rx Doxy/prednisone for suspected asthma exacerbation. BNP elevated 239 with ALP 120 suspected 2nd to hepatic congestion. Given 40mg IV lasix in ER, continue 40mg IV BID (got one additional dose) Weight 132.9kg last week, 131.9kg on admission and 129.9kg prior to AM dose lasix AM 4/ and resolution in SOB reported and CXR improved. Discussed JASON and reports had been tested in the past. ECHO obtained and EF wnl 55-60% without significant valvulvular disease, suspect possible HFpEF and rec to continue lasix 40mg PO daily with supplemental KCl given hx afib and keep replete. Repeat labs later this week provided and to monitor weights and take additional 40mg lasix as needed for weight gain/edema. #Atrial Fibrillation -Continued, remained on BB/eliquis. K replacement 2nd to IV lasix and continued PO supp at dc when taking increased dose to maintain stores. #Asthma -Continue Albuterol PRN, Fluticasone/Vilanterol daily #Hypertension -Continue Amlodipine, -Continue Clonidine patch q , -Continue Metoprolol (on nebivolol 20mg) #Hyperlipidemia -Continue Atorvastatin #Depression/Anxiety -Continue Fluoxetine Notes For Next Care Provider f/u labs later this week to ensure stable renal function/potassium, consider decreasing lasix but suspect needing higher dose for now as reported using recliner for past 2 wks/inability to lay flat. sIginficant improvement w/ 40mg IV lasix x 2, and improved CXR/no further cough. ECHO w/ stable EF no significant valvular disease Rec low salt/fluid restriction and monitoring weights at home, f/u PCP and Dr Eugene as usually follows with Medication Changes From Visit Lasix increased to 40mg daily Potassium increased to 40meq PO daily DC levaquin, prednisone Admission HPI Per Admitting Provider 58yo female - has been diagnosed with PNA 3x since March - treated with antibiotics and steroids outpatient. Seen last week with worsening SOB - had CXR which suggested pulmonary edema. Started on Lasix 20mg po daily - reports good diuresis and temporary improvement in symptoms but has had worsening shortness of breath over the last several days. Complains of GREENE as well as at rest, orthopnea, weight gain of 5-6 pounds Complains of wheeze No chest pain, palpitations, vomiting, diarrhea ER Course: Lasix 40mg IV x 1 Admission Exam Per Admitting Provider General: patient resting comfortably, NAD, non-toxic in appearance, AA&O x 4, anxious Skin: warm, dry, intact, no rashes or lesions HEENT: NC/AT, PERRL, EOMI, anicteric sclera, conjunctiva without injection, external ear normal to inspection and nontender, nares patent, moist mucus membranes, dentition intact, no oropharyngeal lesions, neck supple, trachea midline, no LAD, no thyromegaly, no JVD Heart: +S1/S2, regular, no m/r/g Lungs: equal air entry bilaterally, no rales/rhonchi/wheezes Abd: +BS, soft, NT/ND, no masses/organomegaly/ascites Ext: warm, 2+ pulses in UE/LE bilaterally, no clubbing/cyanosis or edema Neuro: nonfocal, patient AA&O x 4, speech intact, no facial droop, moving all extremities on command with equal strength 5/5 Discharge Exam General 58yo obese female sitting up in bed, NAD, wanting to go home HEENT : head atraumatic, normocephalic, mmm, trachea midline Resp: slightly diminished in the bases but no wheezing/rales, on ROOM AIR CV: NSR, no significant m/r/g, no pitting edema, pulses present GI;+BS, soft NT MSK/Neuro: nonfocal, not confused Psych: AOx3, cooperative with exam Discharge Plan Discharge Items Patient Disposition: Home - Self-Care Reason For Visit: SHORTNESS OF BREATH Discharge Diagnosis: Pulmonary Edema, Heart failure Goals: You have been hospitalized for an acute medical problem. During your stay at [facility], we have made an effort to correct the problem that brought you to the hospital while keeping you as comfortable as possible. Medications were used to bring your condition under control and your discharge instructions will include directions for any medications you should take after leaving the hospital. Please make sure you see your Primary Care Provider as part of your follow up plan. Activity: As commented below Non-emergency contact: Primary Care Provider and Projector Booth Operator Call non-emergency contact if: you have any medication questions, your symptoms worsen, your pain is not controlled, your pain is worsening and your pain is unusual for you Follow-up/Referrals: Salvatore Eugene MD [Physician] - 08/26/24 10:30 am () Tj Rowe III, CRNP [Primary Care Provider] - 08/31/24 3:00 pm Diet: Heart Healthy Fluids: 1800ml (7 cups) Ambulatory Orders: Basic Metabolic Panel (Routine) Timeframe: 20240826 Location: Determined by Patient Ordered By: Hanna Carter Attending Provider Instructions: You have been hospitalized for shortness of breath. Chest xray showed fluid in the lungs and could be from heart failure which was likely worsened with steroids and valvular disease. You were INCREASED on the water medication given to you by your primary care and are being sent on FUROSEMIDE (LASIX) 40mg once daily along with supplemental potassium to keep these stable and can monitor your weights daily. You can take an additional lasix (with potassium) for any weight gain 3lb in 24hours or 5lb in a week. Your weight at discharge was lb. Please have repeat labs later this week to ensure staying stable kidney function and follow up with primary care and Dr Eugene in the next 1-2 weeks. Please return to the ER with any increased shortness of breath, wheezing, fever/chills, or for any other symptoms concerning for you. It has been a pleasure being a part of the medical team providing for you while you have been in the hospital. Take care! Pending Studies at Discharge: No Stand-Alone Forms: [facility], Smoking Cessation Medications and DC Order Prescriptions: New furosemide 40 mg tablet 40 mg PO DAILY Qty: 60 0RF Rx Instructions: 40mg daily with additional 40mg for weight gain/edema potassium chloride 20 mEq tablet extended release 40 meq PO DAILY Qty: 60 0RF Continued Fluzone Triv [id number] (PF) 45 mcg (15 mcg x 3)/0.5 mL syringe 0.5 ml IM ONCE Qty: 0.5 0RF atorvastatin [Lipitor] 10 mg tablet 10 mg PO HS Qty: 90 3RF clonidine 0.3 mg/24 hr patch weekly 1 patch topical WK Qty: 12 3RF Rx Instructions: fluticasone propion-salmeterol [Wixela Inhub] 100-50 mcg/dose blister with device 1 inh inhalation BID Qty: 60 0RF albuterol sulfate 2.5 mg /3 mL (0.083 %) solution for nebulization 2.5 mg inhalation QID PRN (Reason: shortness of breath or wheezing) Qty: 75 1RF losartan 100 mg tablet 100 mg PO PM Qty: 30 0RF Eliquis 5 mg tablet 5 mg PO BID Qty: 180 3RF montelukast [Singulair] 10 mg tablet 10 mg PO QPM Qty: 90 4RF Dymista 137-50 mcg/spray spray,non-aerosol 1 - 2 spray INTNAS DAILY PRN (Reason: ALLERGIES) Qty: 23 3RF Rx Instructions: 1-2 Sprays INTNAS DAILY; cholecalciferol (vitamin D3) 2,000 unit capsule 2,000 units PO PM acetaminophen [Tylenol Extra Strength] 500 mg tablet 1,000 mg PO Q8H PRN (Reason: pain/fever) amlodipine [Norvasc] 5 mg tablet 5 mg PO QAM Qty: 90 3RF nebivolol [Bystolic] 10 mg tablet 10 mg PO DAILY Qty: 90 3RF methylphenidate HCl [Concerta] 36 mg PO DAILY Complete Multivitamin tablet 1 tab PO HS fluoxetine [Prozac] 40 mg capsule 40 mg PO HS albuterol sulfate [Ventolin HFA] 90 mcg/actuation HFA aerosol inhaler 1 - 2 inh inhalation Q4H PRN (Reason: shortness of breath or wheezing) Discontinued potassium citrate 10 mEq (1,080 mg) tablet extended release 10 meq PO DAILY Qty: 90 3RF prednisone 10 mg tablet See Rx Instructions PO DAILY Qty: 30 0RF Rx Instructions: 4 daily for 3 days, 3 daily for 3 days, 2 daily for three days, 1 daily for 3 days. PO DAILY; levofloxacin 500 mg tablet 500 mg PO DAILY Qty: 10 0RF furosemide 20 mg tablet 20 mg PO DAILY Qty: 1 0RF Rx Instructions: Take 1 tablet today only. Discharge Orders: Discharge Order (Routine); Ordered 08/24/24 Ordered By: Hanna Bruno Admission Data Admit Date/Time: 08/23/24 23:24 Attending Provider: Yong Espinal Admit Provider: Lucia Burton Primary Care Provider: Tj Rowe III Other Providers: Lucia Burton Other Interventions: Discharge Summary Assessment (RN) Last Done: 08/24/24 10:19 Hospital Stay Data Consultations 08/23/24 23:12 ED Decision to Admit Stat Diagnostic Imagining Performed Chest X-Ray 08/23/24 17:26 EXAM: XR chest 1V not portable CLINICAL HISTORY: Chest pain, nonspecific TECHNIQUE: An X-ray image of the chest is obtained in AP projection. 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 Haziness in the bilateral lower zones No evidence of pleural effusion. Heart and Mediastinum: The heart size is mildly enlarged with bilateral congested carole. Dilated unfolded aorta with calcific aortic arch. No mediastinal widening or masses. No hilar or mediastinal lymphadenopathy. 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 A screw applied at the right humeral head. Otherwise, the bony thorax appears intact without fractures or deformities. Soft Tissues: Soft tissues overlying the chest wall are unremarkable. IMPRESSION: 1. Findings represent mild infection/congestion; advise clinical and lab correlation. 2. 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 A screw applied at the right humeral head. Clinical correlation is needed. 3. No changes on interval. Electronically signed by Luis Felipe Jaramillo 08-23-2024 7:17 PM Chest X-Ray 08/24/24 08:20 XR chest 2V PA/lateral CLINICAL HISTORY: follow up CHF vs infectious COMPARISON STUDY: Chest CT June 06, 2023. Chest radiograph August 23, 2024. FINDINGS: There are postoperative findings within the right shoulder. No pneumothorax or pleural effusion is present. There is no consolidation to suggest pneumonia. Cardiomediastinal silhouette is unremarkable. There is no consolidation or evidence for pulmonary edema. Pulmonary vascular congestion has improved. Old left rib fractures are incidentally noted. IMPRESSION: No acute cardiopulmonary findings. Interval improvement in pulmonary vascular congestion. ACT 112: Negative or not required by law. Electronically signed by: Craig Ramirez M.D. 08/24/2024 9:35 AM ECHOCARDIOGRAM 08/24/2024 No prior study for comparison. The left ventricle is normal in structure and function. Left ventricular ejection fraction = 55-60% Right ventricular systolic pressure is normal No significant valvular disease Pending Results Patient Have Any Pending Studies at Discharge: No Discharge Instructions Given to Patient (Per Discharging Provider) You have been hospitalized for shortness of breath. Chest xray showed fluid in the lungs and could be from heart failure which was likely worsened with steroids and valvular disease. You were INCREASED on the water medication given to you by your primary care and are being sent on FUROSEMIDE (LASIX) 40mg once daily along with supplemental potassium to keep these stable and can monitor your weights daily. You can take an additional lasix (with potassium) for any weight gain 3lb in 24hours or 5lb in a week. Your weight at discharge was lb. Please have repeat labs later this week to ensure staying stable kidney function and follow up with primary care and Dr Eugene in the next 1-2 weeks. Please return to the ER with any increased shortness of breath, wheezing, fever/chills, or for any other symptoms concerning for you. It has been a pleasure being a part of the medical team providing for you while you have been in the hospital. Take care! Supervising Physician Co-Signing Physician Notes The patient was not seen by me. The chart was reviewed. Case discussed with ELI Orozco. Agree with assessment and plan Total Time Total Time Spent Total Time Spent (In Minutes): 50 Coding Level of Care Code 95573 INP/OBS DISCH >30 MIN Diagnoses Primary hypertension I10 Hypertension type: primary hypertension Hyperlipidemia E78.5 Atrial fibrillation with rapid ventricular response I48.91
[2024-08-24] MEDS: INFLUENZA VACC TS2024-25(6m+)/PF (IIV3) 0.5mL Syr IM ONE (11:19)
[2024-08-24 11:33] VITALS: BP 109/71; TEMP 97.6
[2024-08-24 14:16] VITALS: PULSE 62
[2024-08-24] MEDS ORDERED: ATORVASTATIN 10 MG TAB PO SCH (21:00)
[2024-08-24] MEDS ORDERED: FLUoxetine HCL 20 MG CAP PO SCH (21:00)
[2024-08-24] MEDS ORDERED: LOSARTAN POTASSIUM 50 MG TAB PO SCH (21:00)
[2024-08-26] MEDS ORDERED: cloNIDine HCL 0.3 MG/24 HR TRANSDERM SYS TD SCH (09:00)
== END 2024-08-24 15:04 | disposition home or self-care (01) ==
LOC: ED 17:16 → 2N 23:24 → SUATTDRO 23:24 → INTOOBSV 23:24 → 2N 08-24 00:27

== ENCOUNTER 2024-12-01 16:44 | Observation (INO) ==
--- NOTE | 2024-12-01 17:25 | Emergency Department Note ---
Impression & Plan Volume overload, Orthopnea, GREENE (dyspnea on exertion), History of CHF (congestive heart failure) ED Provider Note NAME: TAMANNA DELGADO AGE: 59 SEX: F : 1965 ARRIVES VIA: Walk-In INFORMANT: Patient, ED PROVIDER(S): Harry Nunes MD CHIEF COMPLAINT: Shortness of breath, outpatient referral MEDICAL DECISION MAKING: Patient presents for the above. IV was established and blood work was obtained. Patient ordered IV Lasix. Reviewed the patient's weights they are not to do similar from before; however, the patient has been taking Wegovy which may appears that the patient is having a falsely the lower weight when in reality she is losing weight but retaining fluid. Patient blood work admittedly reassuring with normal white count hemoglobin platelet count kidney function unremarkable troponin and BNP are not elevated. Chest x-ray without overt pulmonary edema but given the patient's weight orthopnea GREENE and known history of CHF do believe the patient would benefit from IV diuretics if she is not improved with this increase at home. I did speak with the on-call hospital service and the patient was admitted by Dr. Burton. Discussion w/ other healthcare providers: Dr. Burton inpatient medicine service Prior /Outside records reviewed: I reviewed part of a primary care visit from Lucia Sarah there was discussion about just taking additional Lasix close follow-up however the patient became extremely nauseous near vomiting. Patient was referred to the emergency department. Differential diagnosis: Reactive airway disease, pneumonia, pneumothorax, COPD, CHF, ACS, pulmonary embolism, musculoskeletal, GERD as well as other pathologies were considered. Diagnostics, as interpreted by me: ECG: Sinus with PACs bigeminy, rate of 65 normal QRS, normal axis no obvious STEMI T wave inversion in lead III and aVF. Cardiac monitoring: An order was placed for continuous cardiac monitoring. The monitor shows a rate of 67 with sinus rhythm. Patient was placed on pulse oximetry Medical decision rules: None Imaging studies: I informally interpreted the patient's chest x-ray without obvious pneumonia with formal report to follow. HPI: Patient presents due to concern for dyspnea. The patient states on Friday that she was feeling generally unwell and that she tried to lay back in her recliner and was unable to do so. Patient states that she called the office. Unable to reach her physician but somebody on staff at the clinic advised her to take an extra dose of her Lasix. She did take 40 mg in the morning and 40 in the evening. The patient was concerned about taking 80 and 1 days only took 20 on Friday. Patient states that she was seen in the outpatient setting today and referred here. The patient does complain of GREENE in addition to the orthopnea. Patient states that her weights been relatively stable bit up and down as she was 276 then 274 and then 276 again today. Patient states that she does have a known history of CHF and seeing Munira Nayak. Patient denies any increase in salt or processed foods. She is on Wegovy and states that she has been losing some weight but has had not much of an appetite and is not been eating much in general. No nausea or vomiting. PAST MEDICAL HISTORY: See Below PAST SURGICAL HISTORY: See Below SOCIAL HISTORY: See Below HOME MEDICATIONS: See Below ALLERGIES: See Below VITALS: See Below PHYSICAL EXAMINATION: GENERAL: NAD, non-toxic. Wearing glasses. EYE EXAM: Normal conjunctiva. PERRL, no anisocoria and EOM's grossly intact w/o pain. OROPHARYNX: Moist mucus membranes, grossly normal dentition. NECK: Trachea midline, no stridor. Supple, no nuchal rigidity, no adenopathy, non-tender. No signs of meningismus. FROM of the neck with good chin to chest and neck extension. LUNGS: Decreased breath sounds at the bases. Normal chest wall mechanics. HEART: NSR, no MRG. ABDOMEN: Abdomen soft, non-tender, no masses, no rebound or guarding. BACK: No CVA TTP. SKIN: No rashes and no bruising. UPPER EXTREMITIES: Upper extremities are grossly normal. LOWER EXTREMITIES: Grossly normal, trace pretibial edema without calf pain or erythema. NEURO EXAM: Awake and alert, follows commands, no obvious facial asymmetry, normal speech, moves all 4 extremities. Past Med/Surg History Problem List (Updated 12/01/24 @ 20:49 by Harry Nunes MD) History of CHF (congestive heart failure) (Acute) GREENE (dyspnea on exertion) (Acute) Orthopnea (Acute) Volume overload (Acute) Colon cancer screening Short of breath on exertion Thyroid nodule greater than or equal to 1 cm in diameter incidentally noted on imaging study Body fluid retention (Acute) Morbid obesity with BMI of 45.0-49.9, adult (Acute) Acute dyspnea (Acute) Unspecified atrial fibrillation (HFpEF) heart failure with preserved ejection fraction Hypersomnia Anticoagulant long-term use Mitral regurgitation Hearing loss Allergic rhinitis with postnasal drip Asthma Urinary frequency Hypertension Morbid obesity with BMI of 50.0-59.9, adult Allergic rhinitis (Chronic) Chronic sinusitis (Chronic) Depression (Chronic) Edema (Chronic) Heart murmur (Chronic) Benign hypertension (Chronic) Incidental adrenal cortical adenoma being monitored by Dr. Chinmay ARAUJO (sensorineural hearing loss) (Chronic) Vitamin D deficiency (Chronic) Medical History History of pneumonia Multiple times most recently 07/2024, could be related to "Fluid volume overload" - [place] denies any issues currently [place] [facility] [place] Hearing loss Bilateral Hearing aids Anticoagulant long-term use Eliquis Thyroid nodule Mitral regurgitation [facility] [place] Incidental adrenal cortical adenoma [facility] [place] Hypertension Shortness of breath on exertion pt denies any issues at this time [place] [facility] [place] (HFpEF) heart failure with preserved ejection fraction "It might just be fluid volume overload" as per patient [place] [facility] [place] Morbid obesity Atrial fibrillation with rapid ventricular response Eliquis [place] [facility] [place] COVID-19 hx - pt denies any symptoms at this time Close exposure to 2019 novel coronavirus hx - pt denies symptoms at this time Cystine stones hx - pt denies any issues at this time Nephrolithiasis hx Cystinuria hx - pt denies any issues at this time Abnormal ventricular wall motion [facility] [place] Attention deficit disorder without hyperactivity Dysmetabolic syndrome X Hypercholesterolemia Restrictive lung disease secondary to obesity MNP Pulmonary ADHD Fatty liver Asthma rare use of PRN inh [facility] Heart murmur [facility] [place] History of kidney stones History of COVID-19 02/05/2021; cough, runny nose, sob, loss of taste/smell; reports cough/sob, runny nose resolved. History of anesthesia reaction during a cystoscopy "bit down hard and broke part of my tooth off" IBS (irritable bowel syndrome) Depression Hyperlipidemia Surgical History S/P thyroid biopsy benign History of sleeve gastrectomy History of hysterectomy History of carpal tunnel surgery of right wrist History of hand surgery right ligament repair History of repair of left rotator cuff History of arthroscopy of left knee History of lithotripsy History of cystoscopy History of tooth extraction Upper Partial History of endoscopic sinus surgery Status post myringotomy with tube placement of both ears H/O tubal ligation Family History Grandmother (Maternal) Colon cancer FH: deafness or hearing loss Breast cancer Uterine cancer Mother Asthma Hypertension History of coronary artery bypass surgery Uterine cancer Pancreatic cancer Son Asthma Grandfather (Maternal) FH: deafness or hearing loss Prostate cancer Aunt Cancer Brother Cancer, Onset Age: 53 Other No family history of adverse response to anesthesia Sinusitis Denies family history of Ovarian cancer Cardiac disorder Allergies Myocardial infarction Adverse anesthesia outcome Bleeding disorder Stroke Social History Smoking Status: Never smoker Second Hand Exposure: No; Do You Dip or Chew Tobacco: No; Hx Alcohol Use: No Hx Substance Use: No Preferred Language: Omani Communication Ability: Effective Visual Impairment: No Limitations Hearing Ability: Normal Behavioral Health Clinician Required: No Beliefs That Will Affect Care: None marital status: Current Living Situation: Spouse Current Living Situation Comment: lives with Usman current occupational status: employed 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 How many Children do You have: 2 Feels Safe at Home: Yes Childhood Exposure to Second-Hand Smoke: Yes Diet: regular caffeine: Yes Dental Care, Regularly: Yes Physical Activity Frequency: Daily Seatbelt Use: always Sunscreen Use: Yes Assistive Devices: Glasses, Hearing Aid - Bilateral and Other Allergies Allergies Allergy/AdvReac Type Severity Reaction Status Date / Time house dust Allergy Intermediate upper Verified 12/01/24 18:40 respiratory issues, flare-up asthma mold Allergy Intermediate upper Verified 12/01/24 18:40 respiratory issues, flare-up asthma Home Meds Home Medications Medication Instructions Recorded Confirmed cholecalciferol (vitamin D3) 50 2,000 units PO QPM 01/28/19 12/01/24 mcg (2,000 unit) capsule acetaminophen 500 mg tablet 1,000 mg PO Q8H PRN pain/fever 03/22/21 12/01/24 (Tylenol Extra Strength) methylphenidate HCl 36 mg 36 mg PO QAM 08/29/24 12/01/24 tablet,extended release 24 hr losartan 100 mg tablet 100 mg PO QPM 11/03/24 12/01/24 fluoxetine 40 mg capsule 40 mg PO HS 12/01/24 12/01/24 multivitamin-ferrous 1 tab PO HS 12/01/24 12/01/24 fumarate-folic acid 18 mg-400 mcg tablet (Complete Multivitamin-Multimineral) semaglutide (weight loss) 0.5 0.5 mg subcut WK 12/01/24 12/01/24 mg/0.5 mL subcutaneous pen injector trazodone 50 mg tablet 25 mg PO HS 12/01/24 12/01/24 Previous Rx's Medication Instructions Recorded amlodipine 5 mg tablet (Norvasc) 5 mg PO QAM #90 tabs 04/15/24 atorvastatin 10 mg tablet (Lipitor) 10 mg PO HS Dyslipidemia #90 tabs 05/31/24 clonidine 0.3 mg/24 hr weekly 1 patch topical WK #12 ea 06/04/24 transdermal patch albuterol sulfate 2.5 mg/3 mL 2.5 mg (3 mL) inhalation QID PRN 06/10/24 (0.083 %) solution for nebulization shortness of breath or wheezing #75 mL apixaban 5 mg tablet (Eliquis) 5 mg PO BID #180 tabs 07/26/24 nebivolol 10 mg tablet (Bystolic) 10 mg PO DAILY #90 tabs 09/02/24 albuterol sulfate 90 mcg/actuation 2 inh inhalation Q4H PRN shortness 10/01/24 aerosol inhaler (Ventolin HFA) of breath or wheezing #8.5 grams fluticasone 250 mcg-salmeterol 50 1 inh inhalation BID #60 ea 10/01/24 mcg/dose blistr powdr for inhalation (Wixela Inhub) montelukast 10 mg tablet 10 mg PO QPM #90 tabs 10/01/24 (Singulair) nystatin 100,000 unit/gram topical 1 applic topical HS #60 grams 10/12/24 powder potassium chloride 20 mEq 40 meq (2 x 20 mEq) PO DAILY #180 10/26/24 tablet,extended release tabs furosemide 40 mg tablet 20 - 40 mg (0.5 - 1 x 40 mg) PO 11/15/24 DAILY #60 tabs Results & Data (ED) Vital Signs Vital Signs - 24 hr 12/01/24 16:45 12/01/24 17:09 12/01/24 18:00 Temperature 36.8 C Temperature Source Temporal Artery Scan Pulse Rate 74 65 Pulse Rate [Right Brachial] Pulse Rate from SpO2 Sensor Pulse Rhythm [Right Brachial] Pulse Strength [Right Brachial] Respiratory Rate 26 H 22 Respiratory Effort / Characteristics Spontaneous Respiratory Depth Respiratory Pattern Regular Blood Pressure 162/92 H Blood Pressure [Right Arm] Blood Pressure Mean 115 Blood Pressure Mean [Right Arm] Pulse Oximetry 98 98 93 Oxygen Delivery Method Room Air Room Air Sepsis Recent Fever Within 48 Hours No Sepsis New/Unexplained Change in Mental Status No Sepsis Action Taken by Nursing No Action Required 12/01/24 18:01 12/01/24 18:01 12/01/24 18:01 Temperature Temperature Source Pulse Rate Pulse Rate [Right Brachial] Pulse Rate from SpO2 Sensor Pulse Rhythm [Right Brachial] Pulse Strength [Right Brachial] Respiratory Rate Respiratory Effort / Characteristics Respiratory Depth Respiratory Pattern Blood Pressure 133/70 133/70 133/70 Blood Pressure [Right Arm] Blood Pressure Mean 91 91 91 Blood Pressure Mean [Right Arm] Pulse Oximetry Oxygen Delivery Method Sepsis Recent Fever Within 48 Hours Sepsis New/Unexplained Change in Mental Status Sepsis Action Taken by Nursing 12/01/24 18:03 12/01/24 18:36 12/01/24 18:44 Temperature Temperature Source Pulse Rate 63 61 Pulse Rate [Right Brachial] 67 Pulse Rate from SpO2 Sensor 63 Pulse Rhythm [Right Brachial] Regular Pulse Strength [Right Brachial] Normal Respiratory Rate 14 18 Respiratory Effort / Characteristics Non-Labored Respiratory Depth Normal Respiratory Pattern Blood Pressure Blood Pressure [Right Arm] 133/70 Blood Pressure Mean Blood Pressure Mean [Right Arm] 91 Pulse Oximetry 98 96 Oxygen Delivery Method Room Air Sepsis Recent Fever Within 48 Hours Sepsis New/Unexplained Change in Mental Status Sepsis Action Taken by Nursing 12/01/24 19:03 12/01/24 19:15 12/01/24 19:21 Temperature Temperature Source Pulse Rate 71 63 63 Pulse Rate [Right Brachial] Pulse Rate from SpO2 Sensor 69 80 84 Pulse Rhythm [Right Brachial] Pulse Strength [Right Brachial] Respiratory Rate 13 15 18 Respiratory Effort / Characteristics Respiratory Depth Respiratory Pattern Blood Pressure Blood Pressure [Right Arm] Blood Pressure Mean Blood Pressure Mean [Right Arm] Pulse Oximetry 98 99 99 Oxygen Delivery Method Sepsis Recent Fever Within 48 Hours Sepsis New/Unexplained Change in Mental Status Sepsis Action Taken by Nursing 12/01/24 19:30 12/01/24 19:42 12/01/24 19:51 Temperature Temperature Source Pulse Rate 62 65 65 Pulse Rate [Right Brachial] Pulse Rate from SpO2 Sensor 63 64 66 Pulse Rhythm [Right Brachial] Pulse Strength [Right Brachial] Respiratory Rate 18 22 23 Respiratory Effort / Characteristics Respiratory Depth Respiratory Pattern Blood Pressure Blood Pressure [Right Arm] Blood Pressure Mean Blood Pressure Mean [Right Arm] Pulse Oximetry 99 100 99 Oxygen Delivery Method Sepsis Recent Fever Within 48 Hours Sepsis New/Unexplained Change in Mental Status Sepsis Action Taken by [facility] Medications Current Medication List: was personally reviewed by me Laboratory Data Attestation: I reviewed the patient's lab results. 12/01/24 17:00 12/01/24 17:00 Lab Results 12/01/24 Range/Units 17:00 WBC 9.53 (4.8-10.8) K/ul RBC 4.65 (4.20-5.40) M/uL Hgb 13.9 (12.0-16.0) g/dl Hct 41.3 (37.0-47.0) % MCV 88.8 (80.0-100.0) fL MCH 29.9 (25.0-34.0) pg MCHC 33.7 (32.0-36.0) g/dL RDW Std Deviation 44.0 (36.4-46.3) fL RDW Coeff of Isabelle 13.5 (11.5-14.5) % Plt Count 343 (130-400) K/uL MPV 9.1 L (9.4-12.4) fL Immature Gran % (Auto) 0.2 % Neut % (Auto) 61.3 % Lymph % (Auto) 29.8 % Bladen % (Auto) 6.5 % Eos % (Auto) 1.9 % Baso % (Auto) 0.3 % Neut # (Auto) 5.84 (1.40-6.50) K/uL Lymph # (Auto) 2.84 (1.20-3.40) K/uL Bladen # (Auto) 0.62 H (0.11-0.59) K/uL Eos # (Auto) 0.18 (0.00-0.50) K/uL Baso # (Auto) 0.03 (0.00-0.20) K/uL Immature Gran # (Auto) 0.02 (0.01-0.20) K/uL PT 10.0 (9.0-12.0) Seconds INR 0.9 (0.9-1.1) APTT 29 (21-31) Seconds PTT Ratio 1.1 Sodium 138 (136-145) mmol/L Potassium 3.5 (3.5-5.1) mmol/L Chloride 101 (98-107) mmol/L Carbon Dioxide 28 (21-32) mmol/L Anion Gap 9 (3-11) BUN 23 (6-23) mg/dl Creatinine 0.95 (0.6-1.2) mg/dl Est Cr Clr Drug Dosing 81.9 ml/min eGFR 68.59 BUN/Creatinine Ratio 24.2 H (10-20) Glucose 87 (70-99(Fasting)) mg/dl Calcium 9.6 (8.6-10.3) mg/dl Magnesium 2.1 (1.7-2.4) mg/dl Total Bilirubin 0.5 (0.2-1.0) mg/dl AST 24 (13-39) U/L ALT 21 (7-52) U/L Alkaline Phosphatase 122 H (34-104) U/L Troponin I High Sens 4.1 (0-14) pg/ml B-Natriuretic Peptide 41 (0-100) pg/ml Total Protein 7.8 (6.0-8.3) gm/dl Albumin 4.4 (3.4-5.0) gm/dl Globulin 3.4 (2.5-4.0) gm/dl Albumin/Globulin Ratio 1.3 (0.9-2) Administered Medications Discontinued Medications Furosemide (Furosemide 40 Mg/4 Ml Vial) 40 mg IV ONE ONE Stop: 12/01/24 17:12 Last Admin: 12/01/24 17:46 Dose: 40 mg Documented By: KRISTAL Imaging Data Radiologist's Impression: Chest X-Ray 12/01/24 17:09 Chest radiograph, one view History: Shortness of breath Comparison: September 07, 2024 Findings: Single AP view of the chest performed. No focal consolidation or pleural effusion. No pneumothorax. The cardiomediastinal silhouette is within normal limits. Normal pulmonary vascularity. No evidence for lymphadenopathy. No visualized bony or soft tissue abnormality. Impression: Normal chest radiograph Electronically signed by Hitesh Stuart 07-09-2025 5:30 PM Discharge Plan Visit Data Chief Complaint: Shortness of Breath/Dyspnea Stated Complaint: SOB ED Provider: Harry Nunes Discharge Problem: Volume overload, Orthopnea, GREENE (dyspnea on exertion), History of CHF (congestive heart failure) Patient Disposition: Admitted As Inpatient Condition: Good Forms Stand Alone Forms: My [facility] [employer] Prescriptions Prescriptions: No Action atorvastatin [Lipitor] 10 mg tablet 10 mg PO HS Qty: 90 3RF clonidine 0.3 mg/24 hr patch weekly 1 patch topical WK Qty: 12 3RF Rx Instructions: albuterol sulfate 2.5 mg /3 mL (0.083 %) solution for nebulization 2.5 mg inhalation QID PRN (Reason: shortness of breath or wheezing) Qty: 75 1RF Eliquis 5 mg tablet 5 mg PO BID Qty: 180 3RF nebivolol [Bystolic] 10 mg tablet 10 mg PO DAILY Qty: 90 3RF nystatin 100,000 unit/gram powder 1 applic topical HS Qty: 60 3RF potassium chloride 20 mEq tablet extended release 40 meq PO DAILY Qty: 180 3RF furosemide 40 mg tablet 20 - 40 mg PO DAILY Qty: 60 0RF Rx Instructions: Increase to 40 mg once daily as needed for weight gain/edema cholecalciferol (vitamin D3) 2,000 unit capsule 2,000 units PO QPM acetaminophen [Tylenol Extra Strength] 500 mg tablet 1,000 mg PO Q8H PRN (Reason: pain/fever) amlodipine [Norvasc] 5 mg tablet 5 mg PO QAM Qty: 90 3RF albuterol sulfate [Ventolin HFA] 90 mcg/actuation HFA aerosol inhaler 2 inh inhalation Q4H PRN (Reason: shortness of breath or wheezing) Qty: 8.5 3RF montelukast [Singulair] 10 mg tablet 10 mg PO QPM Qty: 90 4RF fluticasone propion-salmeterol [Wixela Inhub] 250-50 mcg/dose blister with device 1 inh inhalation BID Qty: 60 12RF trazodone 50 mg tablet 25 mg PO HS losartan 100 mg tablet 100 mg PO QPM methylphenidate HCl 36 mg tablet extended release 24hr 36 mg PO QAM fluoxetine 40 mg capsule 40 mg PO HS Complete Multivitamin-Mineral 18-400 mg-mcg Tablet 1 tab PO HS semaglutide (weight loss) 0.5 mg/0.5 mL pen injector 0.5 mg subcut WK Rx Instructions: FRIDAYS Referrals Referrals: Tj Rowe III, CRNP [Primary Care Provider] - Discharge Problem: Volume overload Qualifiers: Hypervolemia type: other Qualified Code(s): E87.79 - Other fluid overload
--- NOTE | 2024-12-01 17:30 | XRay Report ---
Chest radiograph, one view History: Shortness of breath Comparison: September 07, 2024 Findings: Single AP view of the chest performed. No focal consolidation or pleural effusion. No pneumothorax. The cardiomediastinal silhouette is within normal limits. Normal pulmonary vascularity. No evidence for lymphadenopathy. No visualized bony or soft tissue abnormality. Impression: Normal chest radiograph Electronically signed by Hitesh Stuart 12-01-2024 5:30 PM
[2024-12-01 17:31] LABS: Hematocrit (blood only) 41.3 % (37.0-47.0); Hemoglobin 13.9 g/dl (12.0-16.0); Immature Granulocytes # (auto) 0.02 K/uL (0.01-0.20); Immature Granulocytes % (auto) 0.2 %; Mean Corpuscular Hemoglobin 29.9 pg (25.0-34.0); Mean Corpuscular Volume 88.8 fL (80.0-100.0); Platelet Count 343 K/uL (130-400); RDW Standard Deviation 44.0 fL (36.4-46.3); Red Blood Count 4.65 M/uL (4.20-5.40); White Blood Count 9.53 K/ul (4.8-10.8)
[2024-12-01] MEDS: FUROSEMIDE 40 MG/4 ML VIAL IV ONE (17:46)
[2024-12-01 17:47] LABS: Alanine Aminotransferase 21.0 U/L (7-52); Albumin Globulin Ratio 1.3 (0.9-2); Alkaline Phosphatase 122.0 U/L (34-104); Anion Gap 9.0 (3-11); Bilirubin,Total 0.5 mg/dl (0.2-1.0); Blood Urea Nitrogen 23.0 mg/dl (6-23); Calcium 9.6 mg/dl (8.6-10.3); Carbon Dioxide 28.0 mmol/L (21-32); Chloride 101.0 mmol/L (98-107); Creatinine Clr Calc Pharmacy 81.9 ml/min; Globulin 3.4 gm/dl (2.5-4.0); Glucose 87.0 mg/dl (70-99(Fasting)); Magnesium 2.1 mg/dl (1.7-2.4); Potassium 3.5 mmol/L (3.5-5.1); Sodium 138.0 mmol/L (136-145); Total Protein 7.8 gm/dl (6.0-8.3)
[2024-12-01 18:02] LABS: INR 0.9 (0.9-1.1); Partial Thromboplastin Time 29 Seconds (21-31); Prothrombin Time 10.0 Seconds (9.0-12.0)
--- NOTE | 2024-12-01 19:56 | History & Physical Report ---
Date of Service December 01, 2024 Assessment & Plan (1) History of CHF (congestive heart failure): (2) Orthopnea: (3) Volume overload: Plan Teetee is a 59 y/o female with PMH of HEpEF, Atrial fibrillation, MR, HTN, Morbid obese here due to SOB. Patient states having worsening of shortness of breath and orthopnea since Friday. She reached out to heart failure clinic on Friday, was advised to double her Lasix dose to 40 mg BID. Today she was seen by her PCP who recommended evaluation in the hospital due to SOB, bloated and nausea. Patient on so had been difficult to follow her wet and dry weight. Patient states her diet over the weekend holiday was not low salt. She believes she is retained fluid on her abdomen. Denied nay chest pain or palpitations. Will admit for further monitoring and diureses HFpEF, SOB - Diagnosed on 07/2024. Follows with heart clinic - Patient with increased SOB and Orthopnea since Friday. Patient states that over the weakened it was hard to trak her meals. - Dry weight 280lb as per last heart failure clinic, patient had lost weight since starting on ing . weight today 271 - CXR: No focal consolidation, no pleural effusion - BNP: 41, troponin normal - ED course: Lasix 40 mg IV once - On evaluation patient hemodynamically stable, on room air saturating well - Will admit patient to med/tely - Continue home Furosemide 40 mg daily - I/O, water restriction - continue nebivolol, losartan and atorvastatin - Labs am - Consider adding SGLT1 #HTN - continue losartan, nebivolol and amlodipine -Continue Clonidine patch q #Atrial Fibrillation -Continue Apixaban, nebivolol #Asthma -Continue Albuterol PRN -Fluticasone/Vilanterol daily #Hyperlipidemia -Continue Atorvastatin #Depression/Anxiety -Continue Fluoxetine DVT prophylaxis: Eliquis Med surge- telemetry History of Present Illness Primary Care Provider: Tj Rowe III, NEGRITO Teetee is a 59 y/o female with PMH of HEpEF, Atrial fibrillation, MR, HTN, Morbid obese here due to SOB. Patient states having worsening of shortness of breath and orthopnea since Friday. She reached out to heart failure clinic on Friday, was advised to double her Lasix dose to 40 mg BID. Today she was seen by her PCP who recommended evaluation in the hospital due to SOB, bloated and nausea. Patient on We[place] so had been difficult to follow her wet and dry weight. Patient states her diet over the weekend holiday was not low salt. She believes she is retained fluid on her abdomen. Denied nay chest pain or palpitations. Will admit for further monitoring and diureses ED course: Lasix 40 mg IV Allergies Allergy/AdvReac Type Severity Reaction Status Date / Time house dust Allergy Intermediate upper Verified 12/01/24 18:40 respiratory issues, flare-up asthma mold Allergy Intermediate upper Verified 12/01/24 18:40 respiratory issues, flare-up asthma Home Medications Medication Instructions Recorded Confirmed Type cholecalciferol (vitamin D3) 50 2,000 units PO QPM 01/28/19 12/01/24 History mcg (2,000 unit) capsule acetaminophen 500 mg tablet 1,000 mg PO Q8H PRN pain/fever 03/22/21 12/01/24 History (Tylenol Extra Strength) amlodipine 5 mg tablet (Norvasc) 5 mg PO QAM #90 tabs 04/15/24 12/01/24 Rx atorvastatin 10 mg tablet (Lipitor) 10 mg PO HS Dyslipidemia #90 tabs 05/31/24 12/01/24 Rx clonidine 0.3 mg/24 hr weekly 1 patch topical WK #12 ea 06/04/24 12/01/24 Rx transdermal patch albuterol sulfate 2.5 mg/3 mL 2.5 mg (3 mL) inhalation QID PRN 06/10/24 12/01/24 Rx (0.083 %) solution for nebulization shortness of breath or wheezing #75 mL apixaban 5 mg tablet (Eliquis) 5 mg PO BID #180 tabs 07/26/24 12/01/24 Rx methylphenidate HCl 36 mg 36 mg PO QAM 08/29/24 12/01/24 History tablet,extended release 24 hr nebivolol 10 mg tablet (Bystolic) 10 mg PO DAILY #90 tabs 09/02/24 12/01/24 Rx albuterol sulfate 90 mcg/actuation 2 inh inhalation Q4H PRN shortness 10/01/24 12/01/24 Rx aerosol inhaler (Ventolin HFA) of breath or wheezing #8.5 grams fluticasone 250 mcg-salmeterol 50 1 inh inhalation BID #60 ea 10/01/24 12/01/24 Rx mcg/dose blistr powdr for inhalation (Wixela Inhub) montelukast 10 mg tablet 10 mg PO QPM #90 tabs 10/01/24 12/01/24 Rx (Singulair) nystatin 100,000 unit/gram topical 1 applic topical HS #60 grams 10/12/24 12/01/24 Rx powder potassium chloride 20 mEq 40 meq (2 x 20 mEq) PO DAILY #180 10/26/24 12/01/24 Rx tablet,extended release tabs losartan 100 mg tablet 100 mg PO QPM 11/03/24 12/01/24 History furosemide 40 mg tablet 20 - 40 mg (0.5 - 1 x 40 mg) PO 11/15/24 12/01/24 Rx DAILY #60 tabs fluoxetine 40 mg capsule 40 mg PO HS 12/01/24 12/01/24 History multivitamin-ferrous 1 tab PO HS 12/01/24 12/01/24 History fumarate-folic acid 18 mg-400 mcg tablet (Complete Multivitamin-Multimineral) semaglutide (weight loss) 0.5 0.5 mg subcut WK 12/01/24 12/01/24 History mg/0.5 mL subcutaneous pen injector trazodone 50 mg tablet 25 mg PO HS 12/01/24 12/01/24 History Past Med/Surg History Problem List (Updated 12/01/24 @ 20:49 by Harry Nunes MD) History of CHF (congestive heart failure) (Acute) GREENE (dyspnea on exertion) (Acute) Orthopnea (Acute) Volume overload (Acute) Colon cancer screening Short of breath on exertion Thyroid nodule greater than or equal to 1 cm in diameter incidentally noted on imaging study Body fluid retention (Acute) Morbid obesity with BMI of 45.0-49.9, adult (Acute) Acute dyspnea (Acute) Unspecified atrial fibrillation (HFpEF) heart failure with preserved ejection fraction Hypersomnia Anticoagulant long-term use Mitral regurgitation Hearing loss Allergic rhinitis with postnasal drip Asthma Urinary frequency Hypertension Morbid obesity with BMI of 50.0-59.9, adult Allergic rhinitis (Chronic) Chronic sinusitis (Chronic) Depression (Chronic) Edema (Chronic) Heart murmur (Chronic) Benign hypertension (Chronic) Incidental adrenal cortical adenoma being monitored by Dr. Moy SNHL (sensorineural hearing loss) (Chronic) Vitamin D deficiency (Chronic) Medical History History of pneumonia Multiple times most recently 07/2024, could be related to "Fluid volume overload" - [place] denies any issues currently [place] [facility] [place] Hearing loss Bilateral Hearing aids Anticoagulant long-term use Eliquis Thyroid nodule Mitral regurgitation [facility] [place] Incidental adrenal cortical adenoma [facility] [place] Hypertension Shortness of breath on exertion pt denies any issues at this time [place] [facility] [place] (HFpEF) heart failure with preserved ejection fraction "It might just be fluid volume overload" as per patient [place] [facility] [place] Morbid obesity Atrial fibrillation with rapid ventricular response Eliquis [place] [facility] [place] [facility] COVID-19 hx - pt denies any symptoms at this time Close exposure to 2018 novel coronavirus hx - pt denies symptoms at this time Cystine stones hx - pt denies any issues at this time Nephrolithiasis hx Cystinuria hx - pt denies any issues at this time Abnormal ventricular wall motion [facility] [place] [facility] Attention deficit disorder without hyperactivity Dysmetabolic syndrome X Hypercholesterolemia Restrictive lung disease secondary to obesity [facility]NP Pulmonary ADHD Fatty liver Asthma rare use of PRN inh [facility] Heart murmur [facility] [place] History of kidney stones History of COVID-19 02/05/2021; cough, runny nose, sob, loss of taste/smell; reports cough/sob, runny nose resolved. History of anesthesia reaction during a cystoscopy "bit down hard and broke part of my tooth off" IBS (irritable bowel syndrome) Depression Hyperlipidemia Surgical History S/P thyroid biopsy benign History of sleeve gastrectomy History of hysterectomy History of carpal tunnel surgery of right wrist History of hand surgery right ligament repair History of repair of left rotator cuff History of arthroscopy of left knee History of lithotripsy History of cystoscopy History of tooth extraction Upper Partial History of endoscopic sinus surgery Status post myringotomy with tube placement of both ears H/O tubal ligation Family History Grandmother (Maternal) Colon cancer FH: deafness or hearing loss Breast cancer Uterine cancer Mother Asthma Hypertension History of coronary artery bypass surgery Uterine cancer Pancreatic cancer Son Asthma Grandfather (Maternal) FH: deafness or hearing loss Prostate cancer Aunt Cancer Brother Cancer, Onset Age: 53 Other No family history of adverse response to anesthesia Sinusitis Denies family history of Ovarian cancer Cardiac disorder Allergies Myocardial infarction Adverse anesthesia outcome Bleeding disorder Stroke Social History Smoking Status: Never smoker Second Hand Exposure: Yes (as a child); Do You Dip or Chew Tobacco: No; Hx Alcohol Use: No Hx Substance Use: No Preferred Language: Greenlandic Communication Ability: Effective Visual Impairment: No Limitations Hearing Ability: Normal Filer And Sander Required: No Beliefs That Will Affect Care: None marital status: Current Living Situation: Spouse Current Living Situation Comment: lives with Usman current occupational status: employed 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 How many Children do You have: 2 Other Information That Helps Us Care for You: No Feels Safe at Home: Yes Safety Concerns: Feels Safe At This Time Childhood Exposure to Second-Hand Smoke: Yes Diet: regular caffeine: Yes Dental Care, Regularly: Yes Physical Activity Frequency: Daily Seatbelt Use: always Sunscreen Use: Yes Assistive Devices: Glasses Review of Systems Review of Systems: as per hpi Physical Exam Constitutional: WD/WN, vitals as above ENMT: external ear and nose normal, oropharynx normal Respiratory: normal respiratory effort, lungs clear to auscultation Cardiovascular: RRR, no murmur, no edema Vessels: no JVD Gastrointestinal (Abdomen): normal bowel sounds, soft, nontender, no hepatosplenomegaly Skin: no rashes, warm and dry Results & Data Results & Data Vital Signs (Past 12 Hours) Vital Signs Temp Pulse Pulse Resp BP BP Pulse Ox 12/01/24 18:44 67 18 133/70 96 12/01/24 18:03 63 12/01/24 17:09 98 12/01/24 16:45 36.8 C 74 26 H 162/92 H 98 O2 Del Method 12/01/24 18:44 Room Air 12/01/24 18:03 12/01/24 17:09 Room Air 12/01/24 16:45 Room Air Code Status & VTE Plan VTE Prophylaxis Plan VTE Prophylaxis will be ordered: Yes Supervising Physician Co-Signing Physician Notes Patient seen and examined, chart reviewed, case discussed with Dr. Tom Campos and I agree with the assessment and plan as above. In brief, patient is a 59yo female with history of HFpEF, AF, HTN presenting with orthopnea, edema and SOB. She did double her outpatient Lasix for the last several days, symptoms ongoing therefore she was referred to the ER by her PCP. She is complaining of abdominal fullness as well as trace bilateral LE edema and orthopnea On exam she is resting comfortably, NAD Skin - no rash HEENT - MMM, No JVD Heart - +S1, S2, irregular, bigeminy noted on monitor, no m/r/g Lungs - trace crackles in bilateral bases, no rhonchi or wheeze Abd - soft, NT/ND Ext - trace bilateral LE edema Labs and images reviewed Assessment/Plan Patient with some mild volume retention but does not seem to be overtly volume overloaded. Symptoms possibly secondary to bigeminy -Admit to medical -Monitor response to IV Lasix - redose in AM -Continue home medications as above Resident Activity Tracking Resident Involvement: Resident Care Provided Care Provided: Adult Hospital Medicine (3) Volume overload Hypervolemia type: other Qualified Code(s): E87.79 - Other fluid overload
[2024-12-01] MEDS ORDERED: ONDANSETRON INJ 2 MG/ML 2 ML VIAL IV PRN (21:49)
[2024-12-01] MEDS ORDERED: [UNRECOGNIZED DRUG - OTHER] PO SCH (21:49)
[2024-12-01] MEDS ORDERED: ALBUTEROL 0.083% NEBU SOLN 3 ML VIAL INH PRN (21:49)
[2024-12-01] MEDS ORDERED: MULTIVITAMIN IRON FOLIC ACID PO SCH (21:49)
[2024-12-01] MEDS ORDERED: MELATONIN 3 MG TAB PO PRN (21:49)
[2024-12-01] MEDS ORDERED: ALBUTEROL HFA 8 GM INHALER INH PRN (21:49)
[2024-12-01] MEDS: ATORVASTATIN 10 MG TAB PO SCH (22:39)
[2024-12-01] MEDS: APIXABAN 5 MG TABLET PO SCH (22:39)
[2024-12-01] MEDS: CHOLECALCIFEROL 25 MCG (1000 UNITS) TAB PO SCH (22:39)
[2024-12-01] MEDS: LOSARTAN POTASSIUM 50 MG TAB PO SCH (22:40)
[2024-12-01] MEDS: ACETAMINOPHEN 325 MG TAB PO PRN (22:40)
[2024-12-01] MEDS: MONTELUKAST SODIUM 10 MG TABLET PO SCH (22:40)
--- NOTE | 2024-12-01 23:06 | Billing Data ---
Date of Service December 01, 2024 Coding Level of Care Code 45826 INT INP/OBS CARE
[2024-12-02] MEDS: METOPROLOL TARTRATE 50 MG TAB PO SCH (08:47)
[2024-12-02] MEDS: FUROSEMIDE 40 MG TAB PO SCH (08:47)
[2024-12-02] MEDS: POTASSIUM CHLORIDE CRTAB 20 MEQ TABCR PO SCH (08:47)
[2024-12-02] MEDS: FLUTICASONE/VILANTEROL 100/25MCG 14 PUFFS/INHALER INH SCH (08:47)
[2024-12-02 11:25] VITALS: TEMP 97.7
--- NOTE | 2024-12-02 11:32 | Discharge Summary ---
Date of Service December 02, 2024 Admission HPI Per Admitting Provider Teetee is a 59 y/o female with PMH of HEpEF, Atrial fibrillation, MR, HTN, Morbid obese here due to SOB. Patient states having worsening of shortness of breath and orthopnea since Friday. She reached out to heart failure clinic on Friday, was advised to double her Lasix dose to 40 mg BID. Today she was seen by her PCP who recommended evaluation in the hospital due to SOB, bloated and nausea. Patient on Wegov so had been difficult to follow her wet and dry weight. Patient states her diet over the weekend holiday was not low salt. She believes she is retained fluid on her abdomen. Denied nay chest pain or palpitations. Will admit for further monitoring and diureses ED course: Lasix 40 mg IV Specialty Data Hospitalist Discharge diagnosis: Acute exacerbation of R-sided HF Hematuria Discharge assessment: Vital Signs Temp Pulse Pulse Pulse Resp BP BP 12/02/24 11:25 36.5 C 60 20 12/02/24 08:03 36.7 C 66 18 12/02/24 05:59 56 L 12/02/24 02:58 12/02/24 02:22 36.5 C 18 93/59 L 12/01/24 22:25 12/01/24 22:03 72 12/01/24 21:49 36.4 C L 65 18 12/01/24 21:49 12/01/24 21:09 70 18 12/01/24 19:51 65 23 12/01/24 19:42 65 22 12/01/24 19:30 62 18 12/01/24 19:21 63 18 12/01/24 19:15 63 15 12/01/24 19:03 71 13 12/01/24 18:44 67 18 12/01/24 18:36 61 14 12/01/24 18:03 63 12/01/24 18:01 133/70 12/01/24 18:01 133/70 12/01/24 18:01 133/70 12/01/24 18:00 65 22 12/01/24 17:09 12/01/24 16:45 36.8 C 74 26 H 162/92 H GENERAL: 59 yo morbidly obese middle aged WF. A&Ox4. No distress. LUNGS: Clear to auscultation bilaterally. No W/R/R. CARDIOVASCULAR: S1 S2 +murmur ABDOMEN: Soft, non-tender and non-distended. Bowel sounds normoactive x 4 quad. EXTREMITIES: No edema. Non-tender. Peripheral pulses +2/4. SKIN: Warm, dry, intact. No rashes or lesions. Discharge Data Consultations 12/01/24 19:03 ED Decision to Admit Stat Hospital Course (1) History of CHF (congestive heart failure): (2) Orthopnea: (3) Volume overload: Bassam Kingsley is a 59 y/o female with PMH of HEpEF, Atrial fibrillation, MR, HTN, Morbid obese here due to SOB. Patient states having worsening of shortness of breath and orthopnea since Friday. She reached out to heart failure clinic on Friday, was advised to double her Lasix dose to 40 mg BID. Today she was seen by her PCP who recommended evaluation in the hospital due to SOB, bloated and nausea. Patient on Wegovy so had been difficult to follow her wet and dry weight. Patient states her diet over the weekend holiday was not low salt. She believes she is retained fluid on her abdomen. Denied nay chest pain or palpitations. Will admit for further monitoring and diureses HFpEF, SOB - Diagnosed on 07/2024. Follows with heart clinic - Patient with increased SOB and Orthopnea since Friday. Patient states that over the weakened it was hard to trak her meals. - Dry weight 280lb as per last heart failure clinic, patient had lost weight since starting on staring wegovy. weight today 271 - CXR: No focal consolidation, no pleural effusion - BNP: 41, troponin normal - ED course: Lasix 40 mg IV once - On evaluation patient hemodynamically stable, on room air saturating well - Will admit patient to med/tele - Transitioned to home Furosemide 40 mg PO daily 7/10 AM - I/O, water restriction - continue nebivolol, losartan and atorvastatin - Consider adding SGLT1--will defer to HF clinic on this #Hematuria - Pt reported small amount of hematuria this AM on rounds - H/o kidney stones - UA with reflex culture ordered, UA+ hematuria but +epi cells noted, no gross evidence of infection - CTAP w/o contrast ordered/completed, no evidence of renal or ureteral calculi - Encourage pt to drink fluids and f/u with pcp if this persists or gets worse, may need urology referral for further work up #HTN - continue losartan, nebivolol and amlodipine -Continue Clonidine patch q #Atrial Fibrillation -Continue Apixaban, nebivolol #Asthma -Continue Albuterol PRN -Fluticasone/Vilanterol daily #Hyperlipidemia -Continue Atorvastatin #Depression/Anxiety -Continue Fluoxetine Patient reports feeling better, no dyspnea/orthopnea and feels the swelling in her abdomen has reduced. She is hemodynamically and medically stable for discharge home today. F/U in the HF clinic as scheduled. Notify if weight gain of 3lbs in 24 hours or 5 lbs in 7 days. F/u with pcp within 1 week or sooner if needed. Plan of care has been d/w Dr. Espinal who is in agreement with aforementioned. Discharge time: 35 minutes Supervising Physician Co-Signing Physician Notes The patient was not seen by me. The chart was reviewed. Case discussed with ELI Dickson. Agree with assessment and plan Coding Level of Care Code 19500 INP/OBS DISCH >30 MIN Diagnoses History of CHF (congestive heart failure) Z86.79 Orthopnea R06.01 Volume overload E87.79 Hypervolemia type: other
[2024-12-02 12:23] LABS: Appearance Urine Slightly Cloudy (Clear); Glucose Urine UA Negative (Negative)
--- NOTE | 2024-12-02 14:03 | CT Scan Report ---
ABDOMEN AND PELVIS CT WITHOUT CONTRAST CT DOSE: 1408.89 mGy.cm HISTORY: Acute hematuria with history of kidney stones hematuria, h/o kidney stones TECHNIQUE: Multiaxial CT images of the abdomen and pelvis were performed without contrast. A dose lo wering technique was utilized adhering to the principles of ALARA. COMPARISON STUDY: 08/29/2024 FINDINGS: The imaged chest is unremarkable. The unenhanced spleen, pancreas, gallbladder and liver ap pear unremarkable. Bilateral adrenal adenomata appear stable measuring 4.37 m on the left and 2.67 m on the right. Unremarkable kidneys. No renal or ureteral calculi or hydronephrosis. Partial distentio n of the urinary bladder. Hysterectomy. Atherosclerosis of the aorta. Retroaortic left renal vein. Mild to moderate colonic fecal retention. Postoperative changes of the stomach. No bowel obstruction or bowel wall thickening. Noninflamed appendix. Left upper thigh lipoma measures up to 5.7 cm in AP d imension. No acute fracture or suspicious bone lesion. IMPRESSION: 1. No acute intra-abdominal or intrapelvic abnormality. 2. No renal or ureteral calculi or hydronephrosis. 3. Incidental findings as above. ACT 112: Negative or not required by law. The above report was generated using voice recognition software. It may contain grammatical, syntax o r spelling errors. Electronically signed by: Nate Medina M.D. 12/02/2024 2:00 PM
[2024-12-02 14:58] VITALS: BP 130/82; PULSE 61; RESP 18; O2SAT 98
--- NOTE | 2024-12-02 18:44 | Electrocardiogram Report ---
Test Reason : Blood Pressure : */* mmHG Vent. Rate : 65 BPM Atrial Rate : 65 BPM P-R Int : 198 ms QRS Dur : 102 ms QT Int : 404 ms P-R-T Axes : -11 -12 -20 degrees QTcB Int : 420 ms Sinus rhythm with Premature atrial complexes in a pattern of bigeminy Minimal voltage criteria for LVH, may be normal variant possible Inferior infarct , age undetermined Abnormal ECG When compared with ECG of 23-Aug-2024 17:38, Premature atrial complexes are now Present Inverted T waves have replaced nonspecific T wave abnormality in Inferior leads Confirmed by Hitesh Jean Baptiste ([id number]) on 12/02/2024 6:43:55 PM Referred By: REFERRED SELF Confirmed By: Hitesh Jean Baptiste
--- NOTE | 2024-12-05 06:59 | Coding Query ---
CONGESTIVE HEART FAILURE To Promote full compliance with coding requirements relating to patient care, physician participation is requested in all cases of scarfer uncertainty. Please assist us with the following questions. A diagnosis of Congestive Heart Failure is documented in the patient's medical record. To accurately code this diagnosis and to compare patient severity, we ask that you specify the type of heart failure by placing an X within the parenthesis (x). * Patient followed in heart failure Clinic admitted due to heart failure with rising BNP and fluid overload. Given Lasix IV x1 in ED. SYSTOLIC HEART FAILURE ( ) Acute ( ) Chronic ( ) Acute on Chronic ( ) Rheumatic ( ) Unknown DIASTOLIC HEART FAILURE ( ) Acute (x ) Chronic ( ) Acute on Chronic ( ) Rheumatic ( ) Unknown COMBINED SYSTOLIC AND DIASTOLIC HEART FAILURE ( ) Acute ( ) Chronic ( ) Acute on Chronic ( ) Rheumatic ( ) Unknown Was the CHF Present On Admission? Please check the appropriate box: ( ) Present on Admission ( x) Not Present On Admission ( ) Clinically undetermined Thank you NÉSTOR Teixeira [facility]ENTERMaximiliano
== END 2024-12-02 14:50 | disposition home or self-care (01) | DRG 292 ==
LOC: ED 16:44 → SUATTDRO 19:54 → 2N 19:54 → INTOOBSV 19:54 → 2N 21:30